=== PATIENT | female | born 1995 | race Hispanic/Latino ===

== ENCOUNTER 2019-04-21 11:05 | Emergency (ER) | payer BC ==
[2019-04-21 11:40] LABS: Absolute Lymphocytes (CBC) 0.9 K/uL (0.7-4.9); Hematocrit 37.9 % (36.0-45.0); Lymphocytes % 7.5 % (15.3-44.8); MPV 10.5 fL (7.6-11.3); RBC Red Blood Cell Count 4.08 M/uL (3.86-4.86)
[2019-04-21 11:49] LABS: Urine Blood NEGATIVE (NEG); Urine Glucose TRACE (NEG); Urine Protein NEGATIVE (NEG); Urine Specific Gravity 1.025 (1.005-1.030)
[2019-04-21 11:55] LABS: ALT/SGPT 37 U/L (12-78); AST/SGOT 22 U/L (15-37); Albumin 3.6 g/dL (3.4-5.0); Alkaline Phosphatase 88 U/L (45-117); BUN Blood Urea Nitrogen 14 mg/dL (7-18); Bicarbonate 24 mmol/L (21-32); Bilirubin Direct 0.1 mg/dL (0-0.2); Bilirubin Total 0.3 mg/dL (0.2-1.0); Glucose Level 144 mg/dL (74-106); Lipase 66 U/L (73-393); Potassium 3.5 mmol/L (3.5-5.1); Protein, Total 6.8 g/dL (6.4-8.2); Sodium Level 141 mmol/L (136-145)
[2019-04-21 12:07] LABS: Barbiturates NEGATIVE (NEGATIVE); Benzodiazepines NEGATIVE (NEGATIVE); Cocaine NEGATIVE (NEGATIVE); METHAMPHETAM NEGATIVE (NEGATIVE); Methadone NEGATIVE (NEGATIVE); Opiates NEGATIVE (NEGATIVE); Phencyclidine NEGATIVE (NEGATIVE); THC Cannibis NEGATIVE (NEGATIVE)
--- NOTE | 2019-04-21 12:09 | RAD REPORT ---
EXAM DESCRIPTION: CT - Head Brain Wo Cont - 04/21/2019 11:54 am CLINICAL HISTORY: Acute onset headache, no history of trauma indicated COMPARISON: None. TECHNIQUE: Axial 5 mm thick images of the head were obtained without IV contrast. All CT scans are performed using dose optimization technique as appropriate and may include automated exposure control or mA/KV adjustment according to patient size. FINDINGS: Ill-defined hyperdensity is present in the left sylvian fissure and extending towards the left side of the [place]. There is also some vague increased density along the posterior asp ect of the interhemispheric fissure anteriorly. Patient has enlargement of the temporal horns of each lateral ventricle for what is typically seen. Lateral and third ventricle size is within normal limi ts but the baseline for the patient is unknown. There is the appearance of an underlying mild diffuse edema. No midline shift. An acute infarction is not suspected. There is no intraventricular hemorrha ge. Mastoid air cells and visualized portions of the paranasal sinuses are clear. No acute bony findings. Findings were discussed by telephone with the referring physician 12:06 p.m. IMPRESSION: Acute subarachnoid hemorrhage is present in the left sylvian fissure and left [place] region. There is questionable minimal subarachnoid hemorrhage in the anterior interhemispheric fissure. Patient has a mild cerebral edema pattern. Temporal horns of the lateral ventricles are enlarged. The re is no midline shift. Etiology for the subarachnoid hemorrhage is unclear. There is no trauma history. Aneurysm is certainl y a consideration. Hemorrhage related to hypertensive episode would be possible.
[2019-04-21] MEDS ORDERED: MORPHINE 2 MG/ML SYR ONE ×2 (12:10→13:42)
[2019-04-21] MEDS ORDERED: ONDANSETRON 4 MG/2 ML VIAL ONE ×2 (12:10→13:42)
[2019-04-21] MEDS ORDERED: NA CHLORIDE 0.9% 1,000 ML ONE (12:10)
--- NOTE | 2019-04-21 12:10 | ER ---
Nurse's Notes [facility] Name: Lilo Cowart Age: 23 yrs Sex: Female : 1995 Arrival Date: 04/21/2019 Time: 11:09 Bed 7 Private MD: Diagnosis: Nontraumatic subarachnoid hemorrhage from unspecified vertebral artery;Headache;Vomiting;Urinary tract infection, site not specified Presentation: 04/21 11:15 Presenting complaint: states: sudden onset of headache, N/V/D that began right ss after having intercourse this morning at 0830. is concerned because patient is weak now. Transition of care: patient was not received from another setting of care. Onset of symptoms was April 21, 2019. Risk Assessment: Do you want to hurt yourself or someone else? Patient reports no desire to harm self or others. Initial Sepsis Screen: Does the patient meet any 2 criteria? No. Patient's initial sepsis screen is negative. Does the patient have a suspected source of infection? No. Patient's initial sepsis screen is negative. 11:15 Method Of Arrival: Wheelchair ss 11:15 Acuity: GERSON 3 ss 11:15 Note Pt ceased taking control 3 weeks ago. Care prior to arrival: None. 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 - Social history:: Smoking status: Patient/guardian denies using tobacco. - Ebola Screening: : Patient denies exposure to infectious person Patient denies travel to an Ebola-affected area in the 21 days before illness onset. - Family history:: not pertinent. Screenin:25 Abuse screen: Denies threats or abuse. Nutritional screening: No deficits noted. aa5 Tuberculosis screening: No symptoms or risk factors identified. Fall Risk None identified. Assessment: 11:20 General: Appears uncomfortable, Behavior is calm, cooperative. Pain: Complains of pain aa5 in forehead Pain does not radiate. Pain currently is 9 out of 10 on a pain scale. Quality of pain is described as pressure, Is continuous. Neuro: Level of Consciousness is awake, alert, obeys commands, Oriented to person, place, time, situation, Director Of Accreditation are equal bilaterally Moves all extremities. Speech is normal, Facial symmetry appears normal, Pupils are PERRLA, Reports headache frontal area. Cardiovascular: Heart tones S1 S2 present Rhythm is regular. Respiratory: Airway is patent Respiratory effort is even, unlabored, Respiratory pattern is regular, symmetrical. GI: Abdomen is flat, non-distended, Bowel sounds present X 4 quads. Abd is soft and non tender X 4 quads. Reports diarrhea, nausea, vomiting, Patient currently denies abdominal pain. : Denies burning with urination, inability to void, urinary frequency, urgency. EENT: No signs and/or symptoms were reported regarding the EENT system. Derm: Skin is pink, warm \T\ dry. Musculoskeletal: Range of motion: intact in all extremities. 11:48 Reassessment: Pt taken to CT via stretcher . aa5 12:00 Reassessment: Patient is alert, oriented x 3, equal unlabored respirations, skin aa5 warm/dry/pink. Pt back from CT. 12:20 Reassessment: Patient is alert, oriented x 3, equal unlabored respirations, skin aa5 warm/dry/pink. Pt reports pain has decreased. Pt refused 2nd dose of morphine at this time. . Pain: Pain currently is 8 out of 10 on a pain scale. 12:45 Neuro: Level of Consciousness is awake, alert, obeys commands, Oriented to person, aa5 place, time, situation. Cardiovascular: Rhythm is sinus rhythm. Respiratory: Airway is patent Respiratory effort is even, unlabored, Respiratory pattern is regular, symmetrical. Derm: Skin is pink, warm \T\ dry. 12:45 Pain: Pain currently is 8 out of 10 on a pain scale. aa5 13:20 Reassessment: Patient is alert, oriented x 3, equal unlabored respirations, skin aa5 warm/dry/pink. 13:20 Pain: Pain currently is 8 out of 10 on a pain scale. aa5 Vital Signs: 11:18 BP 120 / 81; Pulse 74; Resp 14; Temp 98.1(TE); Pulse Ox 99% on R/A; Weight 58.97 kg; ss Height 5 ft. 3 in. (160.02 cm); Pain 8/10; 12:08 BP 112 / 75; Pulse 62; Resp 16 S; Pulse Ox 100% on R/A; aa5 12:25 BP 113 / 74; Pulse 78; Resp 16 S; Pulse Ox 100% on R/A; aa5 12:45 BP 113 / 77; Pulse 76; Resp 14 S; Temp 98.0(TE); Pulse Ox 100% on R/A; aa5 13:00 BP 110 / 64; Pulse 82; Resp 16 S; Pulse Ox 100% on R/A; aa5 13:15 BP 107 / 64; Pulse 77; Resp 16 S; Pulse Ox 100% on R/A; aa5 11:18 Body Mass Index 23.03 (58.97 kg, 160.02 cm) ss NIH Stroke Scale Scores: 12:26 NIHSS Score: 0 [facility] ED Course: 11:09 Patient arrived in ED. as 11:09 Jesse Sauer MD is Attending Physician. [facility] 11:14 Nasrin Poole RN is Primary Nurse. aa5 11:17 Triage completed. ss 11:18 Arm band placed on right wrist. ss 11:20 Patient has correct armband on for positive identification. Placed in gown. Bed in low aa5 position. Call light in reach. Side rails up X2. 11:26 Initial lab(s) drawn, by me, sent to lab. Inserted saline lock: 20 gauge in right aa5 antecubital area, using aseptic technique. Blood collected. 11:54 CT completed. Patient tolerated procedure well. Patient moved back from CT. mw3 11:57 CT Head Brain wo Cont In Process Unspecified. EDMS 13:20 No provider procedures requiring assistance completed. Patient transferred, IV remains aa5 in place. Administered Medications: 12:00 Drug: NS 0.9% 500 ml Route: IV; Rate: bolus; Site: right antecubital; aa5 12:30 Follow up: IV Status: Completed infusion; IV Intake: 500ml aa5 12:00 Drug: Zofran 4 mg Route: IVP; Site: right antecubital; aa5 12:08 Follow up: Response: No adverse reaction aa5 12:00 Drug: morphine 2 mg Route: IVP; Site: right antecubital; aa5 12:08 Follow up: Response: No adverse reaction aa5 12:00 Drug: Rocephin 1 grams Route: IV; Rate: per protocol; Site: right antecubital; aa5 12:08 Follow up: Response: No adverse reaction aa5 12:08 Drug: niMODipine 60 mg Route: PO; aa5 12:57 Follow up: Response: No adverse reaction aa5 12:20 Drug: Keppra 1000 mg Route: IV; Rate: per protocol; Site: right antecubital; aa5 12:35 Follow up: Response: No adverse reaction; IV Status: Completed infusion; IV Intake: aa5 100ml 12:30 Drug: NS 0.9% 1000 ml Route: IV; Rate: 125 ml/hr; Site: right antecubital; aa5 12:55 Not Given (Patient Refused): morphine 2 mg IVP once aa5 12:59 Not Given (Physician Discretion): niCARdipine (25mg/250mL) 5 mg/h IV at per protocol aa5 continuous 13:20 Drug: Zofran 4 mg Route: IVP; Site: right antecubital; aa5 13:22 Follow up: Response: Medication administered at discharge. aa5 13:20 Drug: morphine 2 mg Route: IVP; Site: right antecubital; aa5 13:22 Follow up: Response: Medication administered at discharge. aa5 Intake: 12:30 IV: 500ml; Total: 500ml. aa5 12:35 IV: 100ml; Total: 600ml. aa5 Outcome: 12:09 ER care complete, transfer ordered by . zenia 13:25 Transferred by ground EMS to [facility], Transfer form completed. aa5 X-rays sent w/ patient. Note: Report given to [facility] 13:25 Condition: stable 13:25 Discharge instructions given to patient, and pt's Instructed on the need for transfer, Demonstrated understanding of instructions. 13:29 Patient left the ED. aa5 NIH Stroke Scale - NIH Stroke Score Date: 04/21/2019 Time: 12:26 Total Score = 0 1a. Level of Consciousness (LOC) - 0(Alert) 1b. Level of Consciousness (LOC) (Year \T\ Age) - 0(Both) 1c. LOC Commands (Open \T\ Closes Eyes/Applied Psychology Professor) - 0(Both) 2. Best Gaze (Lateral Gaze Paresis) - 0(Normal) 3. Visual Field Loss - 0(No visual loss) 4. Facial Palsy - 0(Normal) 5a. Left Arm: Motor (10-second hold) - 0(No drift) 5b. Right Arm: Motor (10-second hold) - 0(No drift) 6a. Left Leg: Motor (5-second hold - always test supine) - 0(No drift) 6b. Right Leg: Motor (5-second hold - always test supine) - 0(No drift) 7. Limb Ataxia (finger/nose \T\ heel/[place] - test with eyes open) - 0(Absent) 8. Sensory Loss (pinprick arms/legs/face) - 0(Normal) 9. Best Language: Aphasia (description/naming/reading) - 0(No aphasia) 10. Dysarthria (speech clarity - read or repeat words) - 0(Normal) 11. Extinction and Inattention (visual/tactile/auditory/spatial/personal) - 0(No abnormality) Initials: zenia Signatures: Dispatcher [employer] EDMS Jamila Barahona RN RN aj1 Jesse Sauer MD MD cha Martinez, Amelia as Calderon, Audri, CARLYLE RN aa5 Glenna Márquez RN RN ss Racheal Witt RN RN rb1 Kavitha [place]is mw3 Corrections: (The following items were deleted from the chart) 11:13 11:07 Racheal Witt RN is Primary Nurse. rb1 aa5 11:14 11:14 Primary Nurse role handed off by Racheal Witt RN aa5 aa5 11:14 11:14 Nasrin Poloe, CARLYLE is Primary Nurse. aa5 aa5 14:00 14:00 Patient left the ED. aa5 aa5
--- NOTE | 2019-04-21 12:11 | EDPHYS ---
Physician Documentation [facility] Name: Lilo Cowart Age: 23 yrs Sex: Female : 1995 Arrival Date: 04/21/2019 Time: 11:09 Bed 7 Private MD: ED Physician Jesse Sauer HPI: 04/21 11:46 This 23 yrs old Female presents to ER via Wheelchair with complaints of zenia Vomiting, headache after sex. 11:46 The patient presents to the emergency department with nausea, vomiting, that is zenia continuous. Onset: The symptoms/episode began/occurred just prior to arrival, this morning. Possible causes: unknown. The symptoms are aggravated by nothing. The symptoms are alleviated by nothing. Associated signs and symptoms: The patient has no apparent associated signs or symptoms. The patient has not experienced similar symptoms in the past. 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 - Social history:: Smoking status: Patient/guardian denies using tobacco. - Ebola Screening: : Patient denies exposure to infectious person Patient denies travel to an Ebola-affected area in the 21 days before illness onset. - Family history:: not pertinent. ROS: 11:46 Constitutional: Negative for fever, chills, and weight loss, Eyes: Negative for injury, zenia pain, redness, and discharge, ENT: Negative for injury, pain, and discharge, Neck: Negative for injury, pain, and swelling, Cardiovascular: Negative for chest pain, palpitations, and edema, Respiratory: Negative for shortness of breath, cough, wheezing, and pleuritic chest pain, Back: Negative for injury and pain, : Negative for injury, bleeding, discharge, and swelling, MS/Extremity: Negative for injury and deformity, Skin: Negative for injury, rash, and discoloration, Psych: Negative for depression, anxiety, suicide ideation, homicidal ideation, and hallucinations, Allergy/Immunology: Negative for hives, rash, and allergies, Endocrine: Negative for neck swelling, polydipsia, polyuria, polyphagia, and marked weight changes, Hematologic/Lymphatic: Negative for swollen nodes, abnormal bleeding, and unusual bruising. 11:46 Abdomen/GI: Positive for nausea and vomiting. 11:46 Neuro: Positive for headache. Exam: 11:46 Constitutional: This is a well developed, well nourished patient who is awake, alert, zenia and in no acute distress. Head/Face: Normocephalic, atraumatic. Eyes: Pupils equal round and reactive to light, extra-ocular motions intact. Lids and lashes normal. Conjunctiva and sclera are non-icteric and not injected. Cornea within normal limits. Periorbital areas with no swelling, redness, or edema. ENT: Nares patent. No nasal discharge, no septal abnormalities noted. Tympanic membranes are normal and external auditory canals are clear. Oropharynx with no redness, swelling, or masses, exudates, or evidence of obstruction, uvula midline. Mucous membranes moist. Neck: Trachea midline, no thyromegaly or masses palpated, and no cervical lymphadenopathy. Supple, full range of motion without nuchal rigidity, or vertebral point tenderness. No Meningismus. Chest/axilla: Normal chest wall appearance and motion. Nontender with no deformity. No lesions are appreciated. Cardiovascular: Regular rate and rhythm with a normal S1 and S2. No gallops, murmurs, or rubs. Normal PMI, no JVD. No pulse deficits. Respiratory: Lungs have equal breath sounds bilaterally, clear to auscultation and percussion. No rales, rhonchi or wheezes noted. No increased work of breathing, no retractions or nasal flaring. Abdomen/GI: Soft, non-tender, with normal bowel sounds. No distension or tympany. No guarding or rebound. No evidence of tenderness throughout. Back: No spinal tenderness. No costovertebral tenderness. Full range of motion. Skin: Warm, dry with normal turgor. Normal color with no rashes, no lesions, and no evidence of cellulitis. MS/ Extremity: Pulses equal, no cyanosis. Neurovascular intact. Full, normal range of motion. Neuro: Awake and alert, GCS 15, oriented to person, place, time, and situation. Cranial nerves II-XII grossly intact. Motor strength 5/5 in all extremities. Sensory grossly intact. Cerebellar exam normal. Normal gait. Psych: Awake, alert, with orientation to person, place and time. Behavior, mood, and affect are within normal limits. Vital Signs: 11:18 BP 120 / 81; Pulse 74; Resp 14; Temp 98.1(TE); Pulse Ox 99% on R/A; Weight 58.97 kg; ss Height 5 ft. 3 in. (160.02 cm); Pain 8/10; 12:08 BP 112 / 75; Pulse 62; Resp 16 S; Pulse Ox 100% on R/A; aa5 12:25 BP 113 / 74; Pulse 78; Resp 16 S; Pulse Ox 100% on R/A; aa5 12:45 BP 113 / 77; Pulse 76; Resp 14 S; Temp 98.0(TE); Pulse Ox 100% on R/A; aa5 13:00 BP 110 / 64; Pulse 82; Resp 16 S; Pulse Ox 100% on R/A; aa5 13:15 BP 107 / 64; Pulse 77; Resp 16 S; Pulse Ox 100% on R/A; aa5 11:18 Body Mass Index 23.03 (58.97 kg, 160.02 cm) NIH Stroke Scale Scores: 12:26 NIHSS Score: 0 zenia MDM: 11:10 Patient medically screened. [facility] 11:48 Data reviewed: vital signs, nurses notes, lab test result(s), EKG, radiologic studies, [facility] CT scan, plain films. 04/21 11:26 Order name: Basic Metabolic Panel; Complete Time: 11:57 04/21 11:26 Order name: CBC with Diff [facility] 04/21 11:26 Order name: Hepatic Function; Complete Time: 11:57 [facility] 04/21 11:26 Order name: Lipase; Complete Time: 11:57 [facility] 04/21 11:26 Order name: Test, Serum; Complete Time: 12:12 [facility] 04/21 11:38 Order name: CT Head Brain wo Cont; Complete Time: 12:12 [facility] 04/21 11:39 Order name: Urine Culture 04/21 11:41 Order name: Urine Dipstick--Ancillary (enter results); Complete Time: 11:55 bd 04/21 11:41 Order name: Urine --Ancillary (enter results); Complete Time: 11:55 bd 04/21 11:45 Order name: Manual Differential EDMS 04/21 11:49 Order name: UDS; Complete Time: 12:12 [facility] 04/21 11:26 Order name: IV Saline Lock; Complete Time: 11:04/21 11:26 Order name: Labs collected and sent; Complete Time: 11:04/21 11:26 Order name: Urine Dipstick-Ancillary (obtain specimen); Complete Time: 11:35 04/21 11:26 Order name: Urine Test (obtain specimen); Complete Time: 11:35 04/21 11:46 Order name: NPO; Complete Time: 11:50 [facility] 04/21 11:46 Order name: Seizure Precautions; Complete Time: 11:50 [facility] 04/21 11:49 Order name: EKG; Complete Time: 11:52 [facility] 04/21 11:49 Order name: EKG - Nurse/Tech; Complete Time: 12:19 [facility] Administered Medications: 12:00 Drug: NS 0.9% 500 ml Route: IV; Rate: bolus; Site: right antecubital; aa5 12:30 Follow up: IV Status: Completed infusion; IV Intake: 500ml aa5 12:00 Drug: Zofran 4 mg Route: IVP; Site: right antecubital; aa5 12:08 Follow up: Response: No adverse reaction aa5 12:00 Drug: morphine 2 mg Route: IVP; Site: right antecubital; aa5 12:08 Follow up: Response: No adverse reaction aa5 12:00 Drug: Rocephin 1 grams Route: IV; Rate: per protocol; Site: right antecubital; aa5 12:08 Follow up: Response: No adverse reaction aa5 12:08 Drug: niMODipine 60 mg Route: PO; aa5 12:57 Follow up: Response: No adverse reaction aa5 12:20 Drug: Keppra 1000 mg Route: IV; Rate: per protocol; Site: right antecubital; aa5 12:35 Follow up: Response: No adverse reaction; IV Status: Completed infusion; IV Intake: aa5 100ml 12:30 Drug: NS 0.9% 1000 ml Route: IV; Rate: 125 ml/hr; Site: right antecubital; aa5 12:55 Not Given (Patient Refused): morphine 2 mg IVP once aa5 12:59 Not Given (Physician Discretion): niCARdipine (25mg/250mL) 5 mg/h IV at per protocol aa5 continuous 13:20 Drug: Zofran 4 mg Route: IVP; Site: right antecubital; aa5 13:22 Follow up: Response: Medication administered at discharge. aa5 13:20 Drug: morphine 2 mg Route: IVP; Site: right antecubital; aa5 13:22 Follow up: Response: Medication administered at discharge. aa5 Disposition: 04/21/19 12:09 Transfer ordered to [facility]. Diagnosis are Nontraumatic subarachnoid hemorrhage from unspecified vertebral artery, Headache, Vomiting, Urinary tract infection, site not specified. - Reason for transfer: Higher level of care. - Accepting physician is to [facility]. - Condition is Serious. - Problem is new. - Symptoms have improved. NIH Stroke Scale - NIH Stroke Score Date: 04/21/2019 Time: 12:26 Total Score = 0 1a. Level of Consciousness (LOC) - 0(Alert) 1b. Level of Consciousness (LOC) (Year \T\ Age) - 0(Both) 1c. LOC Commands (Open \T\ Closes Eyes/Wrapper Stemmer Operator) - 0(Both) 2. Best Gaze (Lateral Gaze Paresis) - 0(Normal) 3. Visual Field Loss - 0(No visual loss) 4. Facial Palsy - 0(Normal) 5a. Left Arm: Motor (10-second hold) - 0(No drift) 5b. Right Arm: Motor (10-second hold) - 0(No drift) 6a. Left Leg: Motor (5-second hold - always test supine) - 0(No drift) 6b. Right Leg: Motor (5-second hold - always test supine) - 0(No drift) 7. Limb Ataxia (finger/nose \T\ heel/[place] - test with eyes open) - 0(Absent) 8. Sensory Loss (pinprick arms/legs/face) - 0(Normal) 9. Best Language: Aphasia (description/naming/reading) - 0(No aphasia) 10. Dysarthria (speech clarity - read or repeat words) - 0(Normal) 11. Extinction and Inattention (visual/tactile/auditory/spatial/personal) - 0(No abnormality) Initials: zenia Signatures: Dispatcher [employer] EDeJsse Messina MD MD cha Mickail, Joel, PA PA jmm Poole, Nasrin, RN RN aa5 Glenna Márquez, RN RN ss Corrections: (The following items were deleted from the chart) 12:11 11:28 Creatinine for Radiology+C.LAB.BRZ ordered. EDHI EDMS 13:29 12:09 04/21/2019 12:09 Transfer ordered to [facility]. aa5 Diagnosis is Nontraumatic subarachnoid hemorrhage from unspecified vertebral artery; Headache; Vomiting; Urinary tract infection, site not specified. Reason for transfer: Higher level of care. Accepting physician [facility]. Condition is Serious. Problem is new. Symptoms have improved. [facility] 14:00 13:29 04/21/2019 12:09 Transfer ordered to [facility]. aa5 Diagnosis is Nontraumatic subarachnoid hemorrhage from unspecified vertebral artery; Headache; Vomiting; Urinary tract infection, site not specified. Reason for transfer: Higher level of care. Accepting physician is to [facility]. Condition is Serious. Problem is new. Symptoms have improved. aa5
[2019-04-21] MEDS ORDERED: levETIRAcetam 1,000 MG in NA CHLORIDE 0.9% 100 ML IV ONE (12:15)
[2019-04-21] MEDS ORDERED: CEFTRIAXONE/SWI 1gm 1 GM/10 ML SYR ONE (12:15)
[2019-04-21 12:28] LABS: Blood Morphology Comment NOT SEEN (NOT SEEN); Platelet Estimate ADEQ
[2019-04-21] MEDS ORDERED: niMODipine 30 MG CAP PO ONE (12:32)
--- NOTE | 2019-04-22 07:41 | EKG ---
Test Date: 2019-04-21 Test Time: 12:04:32 Etiquette Teacher: ORESTES MEASUREMENT RESULTS: Intervals: Rate: 74 NC: 154 QRSD: 94 QT: 424 QTc: 470 [place]: P: 65 NC: 154 QRS: 61 T: 24 INTERPRETIVE STATEMENTS: Normal sinus rhythm Prolonged QT Abnormal ECG No previous ECG available for comparison Electronically Signed On 04-22-19 07:41:00 CDT by Darrin Doss
== END 2019-04-21 14:00 | disposition short-term general hospital (02) ==
LOC: ER 11:05
DX: I60.5 Nontraumatic subarachnoid hemorrhage from vertebral artery (principal); N39.0 Urinary tract infection, site not specified; R11.10 Vomiting, unspecified
CPT/HCPCS: 36415; 70450; 80048; 80076; 80307; 81003; 81025; 83690; 84703; 85025; 87077; 87086; 87088; 87186; 93005; 96374; 96375; 99285; J0696; J1953; J2270; J2405; J7030

== ENCOUNTER 2021-05-13 06:07 | Emergency (ER) | payer BC, OTHER ==
[2021-05-13 07:30] LABS: Urine Blood 3+ (Negative); Urine Glucose Negative (Negative); Urine Protein Negative (Negative); Urine Specific Gravity 1.015 (1.005-1.030); Urine pH 6.5 (5.0-7.0)
[2021-05-13 08:09] LABS: Absolute Lymphocytes (CBC) 1.2 K/uL (0.7-4.9); Basophils % 0.2 % (0-1.3); Hematocrit 38.4 % (36.0-45.0); Lymphocytes % 13.4 % (15.3-44.8); MPV 9.4 fL (7.6-11.3); RBC Red Blood Cell Count 4.11 M/uL (3.86-4.86)
[2021-05-13 08:28] LABS: BUN Blood Urea Nitrogen 14 mg/dL (7-18); Bicarbonate 28 mmol/L (21-32); Glucose Level 96 mg/dL (74-106); HCG, Quantitative 27 mIU/mL (1-3); Potassium 4.1 mmol/L (3.5-5.1); Sodium Level 142 mmol/L (136-145)
--- NOTE | 2021-05-13 10:50 | RAD REPORT ---
EXAM DESCRIPTION: US - Transvaginal OB - 05/13/2021 9:17 am CLINICAL HISTORY: with vaginal bleeding COMPARISON: None. FINDINGS: The uterus measures 5 x 4 x 4 centimeters. Asymmetric thickening of the endometrial strip e within the uterine body is presence. It measures 1.5 centimeters. A gestational sac is not seen. . Ovaries are normal in size and echotexture.. The right and left adnexa unremarkable Small amount of free fluid IMPRESSION: Asymmetric thickening endometrial stripe within the uterine body may indicate an incompl ete . Other possibilities include an early intrauterine in which the gestational sac is not seen and ectopic can also result in this appearance. This all should be correlated clinically a nd with serial beta HCG levels. Followup endovaginal sonogram in 1 week recommended
--- NOTE | 2021-05-13 11:24 | ER ---
Nurse's Notes [facility] Name: Lilo Iniguez Age: 25 yrs Sex: Female : 1995 Arrival Date: 05/13/2021 Time: 06:10 Bed 15 Private MD: Diagnosis: Threatened Presentation: 05/13 06:42 Chief complaint: Patient states: 7 weeks , reports vaginal bleeding that em started yesterday, reports high flow has gone through several tampons, denies N/V or fever, also reports pelvic cramping. Coronavirus screen: Client denies travel out of the [place] in the last 14 days. Ebola Screen: Patient negative for fever greater than or equal to 101.5 degrees Fahrenheit, and additional compatible Ebola Virus Disease symptoms Patient denies exposure to infectious person. Patient denies travel to an Ebola-affected area in the 21 days before illness onset. No symptoms or risks identified at this time. Initial Sepsis Screen: Does the patient meet any 2 criteria? No. Patient's initial sepsis screen is negative. Does the patient have a suspected source of infection? No. Patient's initial sepsis screen is negative. Risk Assessment: Do you want to hurt yourself or someone else? Patient reports no desire to harm self or others. Onset of symptoms was May 13, 2021. 06:42 Method Of Arrival: Ambulatory em 06:42 Acuity: GERSON 3 em Triage Assessment: 08:22 General: Appears in no apparent distress. comfortable, slender, well groomed, Behavior tr6 is calm, cooperative, appropriate for age. Pain: Complains of pain in cramping in lower abdomen. EENT: No deficits noted. Neuro: No deficits noted. Cardiovascular: No deficits noted. Respiratory: No deficits noted. GI: No deficits noted. : No deficits noted. Reports vaginal bleeding that is. Derm: No deficits noted. Musculoskeletal: No deficits noted. 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 - Social history:: Smoking status: Patient denies any tobacco usage or history of. Screenin:21 Abuse screen: Denies threats or abuse. Denies injuries from another. Nutritional tr6 screening: No deficits noted. Tuberculosis screening: No symptoms or risk factors identified. Fall Risk None identified. Assessment: 09:20 Reassessment: see triage assessment. tr6 09:21 Reassessment: pt returned from [place]. tr6 11:25 Reassessment: No changes from previously documented assessment. [place] informed pt on tr6 POC and results. Vital Signs: 06:42 BP 125 / 93; Pulse 74; Resp 16; Temp 97.6; Pulse Ox 100% on R/A; Weight 67.13 kg; em Height 5 ft. 3 in. (160.02 cm); Pain 7/10; 08:20 BP 113 / 88; Pulse 77; Resp 18; Pulse Ox 100% on R/A; tr6 06:42 Body Mass Index 26.22 (67.13 kg, 160.02 cm) em ED Course: 06:10 Patient arrived in ED. 06:44 Triage completed. em 06:44 Arm band placed on. em 06:48 Kosta Peter PA is PHCP. [facility] 06:48 Fab Lerner MD is Attending Physician. jmm 07:11 Charlene Acevedo, CARLYLE is Primary Nurse. tr6 08:21 No apparent distress. Resting quietly. Awaiting lab results. tr6 08:21 Patient has correct armband on for positive identification. Fall risk band placed. tr6 Placed in gown. Bed in low position. Call light in reach. Side rails up X 1. Pulse ox on. NIBP on. Door closed. Noise minimized. Visitors limited. Lights dimmed. Moved to private room. Warm blanket given. Diet: Patient is NPO. 08:21 No provider procedures requiring assistance completed. Inserted saline lock: 18 gauge tr6 in right antecubital area, using aseptic technique. Blood collected. Patient maintains SpO2 saturation greater than 95% on room air. 08:35 Patient taken to ultrasound. via wheelchair. tr6 09:10 Transvaginal OB In Process Unspecified. EDMS 11:40 IV discontinued, intact, bleeding controlled, No redness/swelling at site. Pressure tr6 dressing applied. Administered Medications: No medications were administered Outcome: 11:23 Discharge ordered by . jmm 11:25 Discharged to home ambulatory, pt refused wheelchair at this time tr6 11:25 Condition: good 11:25 Discharge instructions given to patient, Instructed on discharge instructions, follow up and referral plans. safety practices, Demonstrated understanding of instructions, follow-up care, medications. 11:48 Patient left the ED. tr6 Signatures: Dispatcher [employer] EDKosta Mark PA PA m Matthew Tirado RN RN em Ramnanan, Tiffany, RN RN tr6 Monet Hernandez Corrections: (The following items were deleted from the chart) :45 06:44 Allergies: Aspirin; em em 06:45 06:44 PMHx: None; em em
--- NOTE | 2021-05-13 11:24 | EDPHYS ---
Physician Documentation [facility] Name: Lilo Iniguez Age: 25 yrs Sex: Female : 1995 Arrival Date: 05/13/2021 Time: 06:10 Bed 15 Private MD: ED Physician Fab Lerner HPI: 05/13 07:06 This 25 yrs old Female presents to ER via Ambulatory with complaints of jmm Vaginal Bleeding, + Preg <12wks. 07:06 The patient presents to the emergency department with vaginal bleeding, that is jmm moderate. The estimated gestational age is 7 weeks. Associated signs and symptoms: Pertinent negatives: abdominal pain, fever, vomiting. The patient has not experienced similar symptoms in the past. 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 - Social history:: Smoking status: Patient denies any tobacco usage or history of. ROS: 07:06 Constitutional: Negative for fever, chills, and weight loss, Cardiovascular: Negative jmm for chest pain, palpitations, and edema, Respiratory: Negative for shortness of breath, cough, wheezing, and pleuritic chest pain, Abdomen/GI: Negative for abdominal pain, nausea, vomiting, diarrhea, and constipation. 07:06 : Positive for vaginal bleeding. 07:06 All other systems are negative. Exam: 07:06 Constitutional: This is a well developed, well nourished patient who is awake, alert, jmm and in no acute distress. Head/Face: atraumatic. Eyes: EOMI, no conjunctival erythema appreciated ENT: Moist Mucus Membranes Neck: Trachea midline, Supple Chest/axilla: Normal chest wall appearance and motion. Cardiovascular: Regular rate and rhythm. No edema appreciated Respiratory: Normal respirations, no respiratory distress appreciated Abdomen/GI: Non distended, soft Back: Normal ROM Skin: General appearance color normal MS/ Extremity: Moves all extremities, no obvious deformities appreciated, no edema noted to the lower extremities Neuro: Awake and alert, normal gait Psych: Behavior is normal, Mood is normal, Patient is cooperative and pleasant Vital Signs: 06:42 BP 125 / 93; Pulse 74; Resp 16; Temp 97.6; Pulse Ox 100% on R/A; Weight 67.13 kg; em Height 5 ft. 3 in. (160.02 cm); Pain 7/10; 08:20 BP 113 / 88; Pulse 77; Resp 18; Pulse Ox 100% on R/A; tr6 06:42 Body Mass Index 26.22 (67.13 kg, 160.02 cm) em MDM: 06:58 [facility] medically screened. [facility] 11:22 Data reviewed: vital signs, nurses notes. Counseling: I had a detailed discussion with [facility] the patient and/or guardian regarding: the historical points, exam findings, and any diagnostic results supporting the discharge/admit diagnosis, lab results, radiology results, the need for outpatient follow up, to return to the emergency department if symptoms worsen or persist or if there are any questions or concerns that arise at home. 05/13 06:59 Order name: Abo/rh Typing; Complete Time: 09:16 [facility] 05/13 06:59 Order name: Basic Metabolic Panel; Complete Time: 08:28 [facility] 05/13 06:59 Order name: CBC with Diff; Complete Time: 08:12 [facility] 05/13 06:59 Order name: Quantitative Hcg; Complete Time: 08:28 [facility] 05/13 07:30 Order name: Urine Dipstick-Ancillary; Complete Time: 07:31 EDMS 05/13 06:59 Order name: IV Saline Lock; Complete Time: 08:19 [facility] 05/13 06:59 Order name: Labs collected and sent; Complete Time: 08:19 [facility] 05/13 06:59 Order name: NPO; Complete Time: 08:19 [facility] 05/13 06:59 Order name: Urine Dipstick-Ancillary (obtain specimen); Complete Time: 08:19 [facility] 05/13 09:10 Order name: Transvaginal OB; Complete Time: 10:53 EDMS Administered Medications: No medications were administered Disposition: 14:36 Co-signature as Attending Physician, Fab Lerner MD I agree with the assessment and rn plan of care. Attestation: The patient's history, exam findings, diagnostics, and a summary of any interventions or procedures was reviewed in detail with Kosta LEE. Disposition Summary: 05/13/21 11:23 Discharge [facility]dered [facility] Condition: Stable jmm Diagnosis - Threatened [facility] Followup: jmm - With: Private Physician - When: 2 - 3 days - Reason: Recheck today's complaints, Continuance of care, Staple/Suture removal, Re-evaluation by your physician Discharge Instructions: - Discharge Summary Sheet jmm - Threatened Miscarriage [facility] Forms: - Medication Reconciliation Form [facility] - Thank You Letter [facility] - Antibiotic Education [facility] - Work release form [facility] - Prescription Opioid Use [facility] Signatures: Dispatcher [employer] EDKosta Mark PA PA jmm Munoz, Edgar, RN RN em Fab Lerner MD MD ornament stitcher: (The following items were deleted from the chart) 06:45 06:44 Allergies: Aspirin; em em 0645 06:44 PMHx: None; em 09:10 08:18 1st Trimest Single 1st Fetus+US.RAD.BRZ ordered. [facility] 14:37 14:36 Co-signature as Attending Physician, Kosta LEE rn rn
[2021-05-13 11:53] VITALS: TEMP 97.6; O2SAT 100
[2021-05-13 11:55] VITALS: BP 113/88
== END 2021-05-13 11:48 | disposition home or self-care (01) ==
LOC: ER 06:07
DX: O20.0 Threatened abortion (principal); Z3A.01 Less than 8 weeks gestation of pregnancy
CPT/HCPCS: 36415; 76817; 80048; 81003; 84702; 85025; 86900; 86901; 99285

== ENCOUNTER 2023-06-13 21:24 | Emergency (ER) | payer OTHER ==
[2023-06-13 22:06] LABS: Absolute Lymphocytes (CBC) 2.1 K/uL (0.7-4.9); Hematocrit 34.3 % (36.0-45.0); Lymphocytes % 22.5 % (15.3-44.8); MCV 90.7 fL (80-100); MPV 9.1 fL (7.6-11.3); Platelets 273 thou/uL (152-406); RBC Red Blood Cell Count 3.78 M/uL (3.86-4.86)
[2023-06-13] MEDS ORDERED: NA CHLORIDE 0.9% 500 ML ONE (22:07)
[2023-06-13 22:28] LABS: Albumin 3.6 g/dL (3.4-5.0); Bilirubin Total 0.2 mg/dL (0.2-1.0); Potassium 3.5 mEq/L (3.5-5.1); Protein, Total 7.3 g/dL (6.4-8.2)
[2023-06-13] MEDS ORDERED: DIPHENHYDRAMINE 50 MG/ML VIAL ONE (22:46)
[2023-06-13] MEDS ORDERED: METHYLPREDNISOLONE 125 MG INJ ONE (22:46)
[2023-06-13] MEDS ORDERED: FAMOTIDINE 20 MG/2 ML VIAL IV ONE (22:47)
[2023-06-13] MEDS ORDERED: predniSONE 20 MG TAB ONE (22:47)
--- NOTE | 2023-06-13 23:41 | ER ---
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 i also am allergic to chocolate and ate a snickers bar tonight so im not sure what's causing the swelling. denies pain. Coronavirus screen: Client denies travel out of the [place] in the last 14 days. At this time, the client does not indicate any symptoms associated with coronavirus-19. Ebola Screen: No symptoms or risks identified at this time. Initial Sepsis Screen: Does the patient meet any 2 criteria? No. Patient's initial sepsis screen is negative. Does the patient have a suspected source of infection? No. Patient's initial sepsis screen is negative. Risk Assessment: Do you want to hurt yourself or someone else? Patient reports no desire to harm self or others. Onset of symptoms was June 13, 2023. 21:35 Method Of Arrival: Ambulatory lg3 21:35 Acuity: GERSON 3 lg3 Triage Assessment: 21:39 General: Appears in no apparent distress. comfortable, Behavior is calm, cooperative. lg3 Pain: Denies pain. EENT: No deficits noted. No signs and/or symptoms were reported regarding the EENT system. Neuro: No deficits noted. Blair Agitation-Sedation Scale (RASS): 0 - Alert and Calm Level of Consciousness is awake, alert, obeys commands, Oriented to person, place, time, situation. Cardiovascular: No deficits noted. Denies chest pain, shortness of breath. Respiratory: No deficits noted. Airway is patent Respiratory effort is even, unlabored, Respiratory pattern is regular, symmetrical. GI: No deficits noted. No signs and/or symptoms were reported involving the gastrointestinal system. : No deficits noted. No signs and/or symptoms were reported regarding the genitourinary system. Derm: No deficits noted. No signs and/or symptoms reported regarding the dermatologic system. Skin is intact, is healthy with good turgor, Skin is dry, Skin is normal, Skin temperature is warm. Musculoskeletal: Swelling present in left episcopalian. 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 - Social history:: Smoking status: Patient denies any tobacco usage or history of. Patient uses alcohol, occasionally. - Family history:: not pertinent. Screenin:04 [facility] ED Fall Risk Assessment (Adult) History of falling in the last 3 months, rv including since admission No falls in past 3 months (0 pts) Score/Fall Risk Level 0 - 2 = Low Risk Oriented to surroundings, Maintained a safe environment, Educated pt \\T\\ family on fall prevention, incl call for assistance when getting out of bed, Assessed \\T\\ reinforced patient's understanding of fall precautions, Provided non-skid footwear, Hourly rounding (assess needs \\T\\ fall precautionary measures) done. Abuse screen: Denies threats or abuse. Denies injuries from another. Nutritional screening: No deficits noted. Tuberculosis screening: No symptoms or risk factors identified. Assessment: 22:03 Reassessment: swelling on the left temporal noted. denies pain. General: Appears rv comfortable, Behavior is calm, cooperative. Pain: Denies pain. Neuro: Level of Consciousness is awake, alert, obeys commands, Oriented to person, place, time, situation. Cardiovascular: Capillary refill < 3 seconds Patient's skin is warm and dry. Respiratory: Airway is patent Respiratory effort is even, unlabored. Derm: Skin is intact. 23:16 Reassessment: Patient appears in no apparent distress at this time. Patient is alert, bp oriented x 3, equal unlabored respirations, skin warm/dry/pink. Vital Signs: 21:35 BP 116 / 86; Pulse 80; Resp 17 S; Temp 98.3(O); Pulse Ox 99% on R/A; Weight 68.04 kg lg3 (R); Height 5 ft. 3 in. (R); Pain 0/10; 22:07 BP 113 / 79; Pulse 87; Resp 17; Pulse Ox 100% ; rv 23:15 BP 101 / 68; Pulse 85; Resp 16; Pulse Ox 100% ; bp 21:35 Body Mass Index 26.57 (68.04 kg, 160.02 cm) lg3 21:35 Pain Scale: Adult lg3 Abiodun Coma Score: 22:07 Eye Response: spontaneous(4). Motor Response: obeys commands(6). Verbal Response: rv oriented(5). Total: 15. 22:26 Eye Response: spontaneous(4). Motor Response: obeys commands(6). Verbal Response: zenia oriented(5). Total: 15. 23:50 Eye Response: spontaneous(4). Motor Response: obeys commands(6). Verbal Response: rv oriented(5). Total: 15. ED Course: 21:27 Patient arrived in ED. jj6 21:32 Jesse Sauer MD is Attending Physician. zenia 21:38 Triage completed. lg3 21:39 Arm band placed on right wrist. lg3 21:48 Andrew Odell, RN is Primary Nurse. bp 22:04 Patient has correct armband on for positive identification. Provided Education on: FALL rv RISK. Client placed on continuous cardiac and pulse oximetry monitoring. NIBP monitoring applied. 22:04 No provider procedures requiring assistance completed. Inserted saline lock: 20 gauge rv in right antecubital area, using aseptic technique. Blood collected. 22:36 CT Head Brain wo Cont In Process Unspecified. EDMS 23:40 Cesar Echevarria MD is Referral Physician. zenia 23:51 IV discontinued, intact, bleeding controlled, No redness/swelling at site. Pressure rv dressing applied. Administered Medications: 22:06 Drug: NS 0.9% IV 500 ml IV at bolus once Route: IV; Rate: bolus; Site: right rv antecubital; 23:51 Follow up: IV Status: Completed infusion; IV Intake: 500ml rv 23:15 Drug: diphenhydrAMINE IVP 25 mg IVP once Route: IVP; Site: right antecubital; rv 23:50 Follow up: Response: No adverse reaction rv 23:15 Drug: Famotidine IVP 20 mg IVP once; dilute with 10 mL 0.9% NaCl; give over 2 minutes rv Route: IVP; Site: right antecubital; 23:50 Follow up: Response: No adverse reaction rv 23:15 Drug: predniSONE PO 40 mg PO once Route: PO; rv 23:50 Follow up: Response: No adverse reaction rv 23:15 Drug: MethylPrednisoLONE IVP 125 mg IVP once Route: IVP; Site: right antecubital; rv 23:50 Follow up: Response: No adverse reaction rv Medication: 22:04 VIS not applicable for this client. rv Intake: 23:51 IV: 500ml; Total: 500ml. rv Outcome: 23:40 Discharge ordered by . zenia 23:51 Discharged to home ambulatory, rv 23:51 Condition: improved 23:51 Discharge instructions given to patient, Instructed on discharge instructions, follow up and referral plans. medication usage, Demonstrated understanding of instructions, follow-up care, medications, Prescriptions given X 4, 23:51 Patient left the ED. rv Signatures: Dispatcher [employer] EDMS Jesse Sauer MD MD cha Peltier, Brian, RN RN Fransisco Wan RN RN rv Opal Vann, CARLYLE RN lg3 Heather Felix jj6 Corrections: (The following items were deleted from the chart) 21:40 21:38 Allergies: No Known Allergies; lg3 lg3 21:40 21:39 PMHx: "aneurysm repair"; lg3 lg3 21:42 21:35 Chief complaint: Patient states: i had a brain aneurysm in january with surgery and lg3 about an hour ago i started swelling in my left temporal area. denies pain lg3
--- NOTE | 2023-06-13 23:41 | EDPHYS ---
Physician Documentation [facility] Name: Lilo Iniguez Age: 27 yrs Sex: Female : 1995 Arrival Date: 06/13/2023 Time: 21:24 Bed 4 Private MD: [facility] Physician Jesse Sauer HPI: 06/13 22:20 This 27 yrs old Female presents to ER via Ambulatory with complaints of zenia Swelling-temporal lobe. Patient states she had brain surgery on the area in January 2023. 22:20 The patient presents with runny nose. Onset: The symptoms/episode began/occurred just zenia prior to arrival. Associated signs and symptoms: The patient has no apparent associated signs or symptoms. Possible causes: CHOCOLATE. The patient complains of pain to the left amish. The patient describes the headache as a pressure. Onset: The symptoms/episode began/occurred today. Severity of symptoms: At their worst the symptoms were mild in the emergency department the symptoms are unchanged. Severity of symptoms: At its worst the pain was mild, in the emergency department the pain has improved, mildly. 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 - Social history:: Smoking status: Patient denies any tobacco usage or history of. Patient uses alcohol, occasionally. - Family history:: not pertinent. ROS: 22:20 Constitutional: Negative for fever, chills, and weight loss, Eyes: Negative for injury, zenia pain, redness, and discharge, ENT: Negative for injury, pain, and discharge, Neck: Negative for injury, pain, and swelling, Cardiovascular: Negative for chest pain, palpitations, and edema, Respiratory: Negative for shortness of breath, cough, wheezing, and pleuritic chest pain, Abdomen/GI: Negative for abdominal pain, nausea, vomiting, diarrhea, and constipation, Back: Negative for injury and pain, : Negative for injury, bleeding, discharge, and swelling, MS/Extremity: Negative for injury and deformity, Skin: Negative for injury, rash, and discoloration, Psych: Negative for depression, anxiety, suicide ideation, homicidal ideation, and hallucinations, Allergy/Immunology: Negative for hives, rash, and allergies, Endocrine: Negative for neck swelling, polydipsia, polyuria, polyphagia, and marked weight changes, Hematologic/Lymphatic: Negative for swollen nodes, abnormal bleeding, and unusual bruising, 22:20 Neuro: Positive for headache, Exam: 22:20 Constitutional: This is a well developed, well nourished patient who is awake, alert, zenia and in no acute distress. Eyes: Pupils equal round and reactive to light, extra-ocular motions intact. Lids and lashes normal. Conjunctiva and sclera are non-icteric and not injected. Cornea within normal limits. Periorbital areas with no swelling, redness, or edema. ENT: Nares patent. No nasal discharge, no septal abnormalities noted. Tympanic membranes are normal and external auditory canals are clear. Oropharynx with no redness, swelling, or masses, exudates, or evidence of obstruction, uvula midline. Mucous membranes moist. Neck: Trachea midline, no thyromegaly or masses palpated, and no cervical lymphadenopathy. Supple, full range of motion without nuchal rigidity, or vertebral point tenderness. No Meningismus. Chest/axilla: Normal chest wall appearance and motion. Nontender with no deformity. No lesions are appreciated. Cardiovascular: Regular rate and rhythm with a normal S1 and S2. No gallops, murmurs, or rubs. Normal PMI, no JVD. No pulse deficits. Respiratory: Lungs have equal breath sounds bilaterally, clear to auscultation and percussion. No rales, rhonchi or wheezes noted. No increased work of breathing, no retractions or nasal flaring. Abdomen/GI: Soft, non-tender, with normal bowel sounds. No distension or tympany. No guarding or rebound. No evidence of tenderness throughout. Back: No spinal tenderness. No costovertebral tenderness. Full range of motion. Female : Normal external genitalia. Skin: Warm, dry with normal turgor. Normal color with no rashes, no lesions, and no evidence of cellulitis. MS/ Extremity: Pulses equal, no cyanosis. Neurovascular intact. Full, normal range of motion. Neuro: Awake and alert, GCS 15, oriented to person, place, time, and situation. Cranial nerves II-XII grossly intact. Motor strength 5/5 in all extremities. Sensory grossly intact. Cerebellar exam normal. Normal gait. Psych: Awake, alert, with orientation to person, place and time. Behavior, mood, and affect are within normal limits. 22:20 Head/face: Noted is swelling, tenderness, that is mild, of the left amish, Vital Signs: 21:35 BP 116 / 86; Pulse 80; Resp 17 S; Temp 98.3(O); Pulse Ox 99% on R/A; Weight 68.04 kg lg3 (R); Height 5 ft. 3 in. (R); Pain 0/10; 22:07 BP 113 / 79; Pulse 87; Resp 17; Pulse Ox 100% ; rv 23:15 BP 101 / 68; Pulse 85; Resp 16; Pulse Ox 100% ; bp 21:35 Body Mass Index 26.57 (68.04 kg, 160.02 cm) lg3 21:35 Pain Scale: Adult lg3 [place] Coma Score: 22:07 Eye Response: spontaneous(4). Motor Response: obeys commands(6). Verbal Response: rv oriented(5). Total: 15. 22:26 Eye Response: spontaneous(4). Motor Response: obeys commands(6). Verbal Response: zenia oriented(5). Total: 15. 23:50 Eye Response: spontaneous(4). Motor Response: obeys commands(6). Verbal Response: rv oriented(5). Total: 15. MDM: 21:32 Patient medically screened. zenia 22:26 Differential diagnosis: anaphylaxis, cluster headache, hyponatremia, neoplasm, subdural zenia hematoma, temporal arteritis, tension headache, traumatic injuries. Data reviewed: vital signs, nurses notes, lab test result(s), radiologic studies, CT scan. Consideration of Admission/Observation Escalation of care including admission/observation considered. I considered the following discharge prescriptions or medication management in the emergency department Medications were administered in the Emergency Department. See MAR. Test considered but Not performed: EKG: NO EKG. Care significantly affected by the following chronic conditions: RECENT BRAIN ANEURYSM SURGERY, ALLERGIC REACTION. 22:29 Independent interpretation of the following test(s) in the Emergency Department CT zenia Scan: My interpretation is CT BRAIN. 06/13 21:50 Order name: CBC with Diff; Complete Time: 22:49 zenia 06/13 21:50 Order name: Comprehensive Metabolic Panel; Complete Time: 22:49 [facility] 06/13 21:50 Order name: CT Head Brain wo Cont zenia Administered Medications: 22:06 Drug: NS 0.9% IV 500 ml IV at bolus once Route: IV; Rate: bolus; Site: right rv antecubital; 23:51 Follow up: IV Status: Completed infusion; IV Intake: 500ml rv 23:15 Drug: diphenhydrAMINE IVP 25 mg IVP once Route: IVP; Site: right antecubital; rv 23:50 Follow up: Response: No adverse reaction rv 23:15 Drug: Famotidine IVP 20 mg IVP once; dilute with 10 mL 0.9% NaCl; give over 2 minutes rv Route: IVP; Site: right antecubital; 23:50 Follow up: Response: No adverse reaction rv 23:15 Drug: predniSONE PO 40 mg PO once Route: PO; rv 23:50 Follow up: Response: No adverse reaction rv 23:15 Drug: MethylPrednisoLONE IVP 125 mg IVP once Route: IVP; Site: right antecubital; rv 23:50 Follow up: Response: No adverse reaction rv Disposition Summary: 06/13/23 23:40 Discharge Ordered Notes: Location: Home zenia Problem: new zenia Symptoms: have improved zenia Condition: Stable zenia Diagnosis - Allergy to other foods - CHOCOLATE zenia - Headache zenia Followup: zenia - With: Private Physician - When: 2 - 3 days - Reason: Recheck today's complaints, Continuance of care, Re-evaluation by your physician Followup: zenia - With: Cesar Echevarria MD - When: 2 - 3 days - Reason: Recheck today's complaints, Re-evaluation by your physician Discharge Instructions: - Discharge Summary Sheet zenia - How to Use an Auto-Injector Pen zenia - Food Allergy zenia - General Headache Without Cause zenia - General Headache Without Cause, [id number] zenia Forms: - Medication Reconciliation Form zenia - Thank You Letter zenia - Antibiotic Education zenia - Prescription Opioid Use zenia - Patient Portal Instructions zenia - Leadership Thank You Letter [facility] Prescriptions: - EpiPen 0.3 mg/0.3 mL Injection Auto-Injector - administer 0.3 milliliter INTRAMUSCULAR route once; 1 packet; Refills: 0, [facility] Product Selection Permitted - Benadryl 25 mg Oral Capsule - take 1 capsule ORAL route every 6 hours As needed; 30 tablet; Refills: 0, [facility] Product Selection Permitted - Pepcid 20 mg Oral tablet - take 1 tablet ORAL route every 12 hours for 14 days; 28 tablet; Refills: 0, [facility] Product Selection Permitted - Medrol (Sandip) 4 mg Oral Tablets, Dose Pack - take 1 tablet ORAL route as directed - follow package instructions; 1 packet; [facility] Refills: 0, Product Selection Permitted Signatures: Dispatcher [employer] Jesse Knox MD MD cha Vicente, Ronaldo, RN RN rv Opal Vann RN RN lg3 Corrections: (The following items were deleted from the chart) 21: 21:38 Allergies: No Known Allergies; lg3 lg3 40 21:39 PMHx: "aneurysm repair"; lg3 lg3
[2023-06-14 01:14] VITALS: TEMP 98.3
[2023-06-14 01:16] VITALS: O2SAT 100
[2023-06-14 01:18] VITALS: BP 101/68
--- OUTSIDE RECORDS SUMMARY | 2023-06-14 07:19 | XMS REPORT | Continuity of Care Document ---
:1995 Author Organization [facility] t Address [address] [place] [address] Care Team Providers Name Role Phone Pcp, Patient Does Not Have A Primary Care Physician +[id number] Doctor Unassigned, [place] Attending Clinician Unavailable Anmol NOWAK, Dev Dale Attending Clinician Cristian TADEO, Katherine Arteaga Attending Clinician Dom Molina MD Attending Clinician Wanda NOWAK, Callum Attending Clinician Rosangela Dawson MD Attending Clinician ROSANGELA DAWSON Attending Clinician Unavailable Buffy Soriano MD Attending Clinician [phone] Cecily TADEO, Maria Esther Muir Attending Clinician Unavailable Alhaji Culver MD Attending Clinician Call, [facility] Phone Attending Clinician Unavailable Valerie Hopson Attending Clinician Cecy Richards MD Attending Clinician Unavailable CECY RICHARDS Attending Clinician Unavailable Ghazala NOWAK, Charlene Street Attending Clinician [phone] Virtual, Surgeon Attending Clinician Unavailable Negrito Villanueva Attending Clinician Unavailable Anitha Wang MD Attending Clinician DEV ROLLINS Attending Clinician Unavailable DAVID TREVINO Attending Clinician Unavailable Dom Molina MD Admitting Clinician DOM MOLINA Admitting Clinician Unavailable CECY RICHARDSNora Admitting Clinician Unavailable DEV ROLLINS Admitting Clinician Unavailable DAVID TREVINO Admitting Clinician Unavailable Payers Payer Name Policy Type Policy Number Effective Date Expiration Date S ource Problems Condition Condition Condition Status Onset Resolution Last Treating Co mments Source Name Details Category Date Date Treatment Clinician Date 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 00:00: [place] artery artery 00 Medical Branch Aneurysm Aneurysm Disease Recurre 2021-[address] [facility] [facility] Cerebral Cerebral Disease Active [facility] 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 aneurysm 00:00: Medica l 00 Center [place] Disease Active [facility] p headache p headache 04-25 [facility] kes 00:00: Medical 00 Center Subarachno Subarachno Disease Recurre [facility] 7 kes hemorrhage hemorrhage 00:00: Me dical 00 Center No known No known Disease Unive rs active active ity of problems problems [facility] Allergies, Adverse Reactions, Alerts Allergy Allergy Status Severity Reaction(s) Onset Inactive Treating Comm ents Source Name Type Date Date Clinician CHOCOLAT DRUG Active SOB Univers E FLAVOR INGREDI 4- ity of 00:00: Medical Branch STRAWBER DRUG Active SOB Univers RY INGREDI 4-27 ity of 00:00: [facility] Branch TOMATO DRUG Active SOB Univers INGREDI 4-27 ity of 00:00: 00 Medical Branch Chocolat Propensi Active Shortness of And Univers e Flavor ty to Breath 01-19 swelling ity of adverse 00:00: [place] reaction 00 Medical s Branch Strawber Propensi Active Shortness of And Univers ry ty to Breath - swelling ity of adverse 00:00: [place] reaction 00 Medical s Branch Tomato Propensi Active Shortness of And Un nathaly ty to Breath 01-19 swelling ity of adverse 00:00: [place] reaction 00 Medical s Branch ASPIRIN Allergy Active High Other 2018-0 [facility] 7-28 00:00: 00 CHOCOLAT Allergy Active High Sob 2018-0 [facility] E FLAVOR 7 00:00: 00 Chocolat Propensi Active Shortness Of [facility] Flavor ty to Breath, 04-21 [facility] adverse Swelling 00:00: Medical reaction 00 Center s Strawber Propensi Active Shortness Of [address] ry ty to Breath, 04-21 [facility] adverse Swelling 00:00: Medical reaction 00 [place] s STRAWBER Allergy Active High Sob 2018-0 [facility] RY 7 00:00: 00 TOM[place] Allergy Active High Sob 2018-0 [facility] (SOLANUM 04-21 LYCOPERS 00:00: ICUM) 00 NO KNOWN Drug Active Univers ALLERGIE Class ity of S [place] [facility] Social History Social Habit Start Date Stop Date Quantity Comments Source History SDOH Social Unive rsity of Connections [facility] Med ical Together Branch History SDOH Social Unive rsity of Connections [facility] Medical Branch History SDOH Social Unive rsity of Connections [place] Medical Membership Branch History SDOH Social Unive rsity of Connections [place] Medical Meetings Branch History of tobacco Passive smoker Un iversity of use [place] [facility] History SDOH [facility] Alcohol Std Drinks Medica l [place] Exposure to 2023-01-27 2023-02-06 Not sure University of SARS-CoV-2 (event) 00:00:00 15:01:00 [place] [facility] History SDOH Social 2023-01-25 2023-01-25 5 Unive rsity of Connections Phone 00:00:00 00:00:00 [place] M edical Branch History SDOH Social 2023-01-25 2023-01-25 3 Unive rsity of Connections Living 00:00:00 00:00:00 [place] Medical [facility] History SDOH 2023-01-25 2023-01-25 5 University o f Financial 00:00:00 00:00:00 [place] [facility] History SDOH Food 2023-01-25 2023-01-25 1 Univers ity of Worry 00:00:00 00:00:00 [place] [facility] History [facility] Food 2023-01-25 2023-01-25 1 Univers ity of Scarcity 00:00:00 00:00:00 [place] [facility] History [facility] 2023-01-25 2023-01-25 2 University o f Transport Med 00:00:00 00:00:00 [place] Medic al Branch History [facility] 2023-01-25 2023-01-25 2 University o f Transport Non-Med 00:00:00 00:00:00 [place] M edical Branch History [facility] 2023-01-25 2023-01-25 2 University o f Housing Unable to 00:00:00 00:00:00 [place] M edical Pay Branch History [facility] 2023-01-25 2023-01-25 1 University o f Housing Places 00:00:00 00:00:00 [facility] sue Lived Branch History [facility] 2023-01-25 2023-01-25 2 University o f Housing Homeless 00:00:00 00:00:00 [place] Me dical Last Year Branch Tobacco use and 2022-10-03 2022-10-03 Smokeless Universit y of exposure 00:00:00 00:00:00 tobacco non-user [facility] dical Branch Alcohol Comment 2022-10-03 2022-10-03 social Universit y of 00:00:00 00:00:00 [facility] Alcohol intake 2022-09-01 2022-09-01 Ex-drinker [facility] 00:[facility] 00:00:00 (finding) Medical Center History [facility] 2019-04-21 2019-04-[address] [facility] Alcohol Frequency 00:00:00 00:00:00 Medical Center History [facility] 2019-04-21 2019-04-[address] [facility] Alcohol Binge 00:00:00 00:00:[address] Sex Assigned At [address] [facility] 00:00:00 00:00:00 Medical Center Smoking Status Start Date Stop Date Source Never smoked tobacco [facility] Medications Ordered Filled Start Stop Current Ordering Indication Dosage Frequency Signature Comments Components Source Medication Medication Date Date Medication? Clinician (SIG) Name Name ondansetron Yes [id number] 4mg Take 1 Univers 4 mg 5-06 tablet by ity of disintegrat 00:00: mouth [place] ing tablet 00 every 8 Medica l (eight) Branch hours as needed for Nausea and Vomiting (N/V). ondansetron 2022-0 Yes [id number] 4mg Take 1 Univers 4 mg 5-06 tablet by ity of disintegrat 00:00: mouth [place] ing tablet 00 every 8 Medica l (eight) Branch hours as needed for Nausea and Vomiting (N/V). ondansetron 2022-0 Yes [id number] 4mg Take 1 Univers 4 mg 5-06 tablet by ity of disintegrat 00:00: mouth [place] ing tablet 00 every 8 Medica l (eight) Branch hours as needed for Nausea and Vomiting (N/V). ondansetron 2022-0 Yes [id number] 4mg Take 1 Univers 4 mg 5-06 tablet by ity of disintegrat 00:00: mouth [place] ing tablet 00 every 8 Medica l (eight) Branch hours as needed for Nausea and Vomiting (N/V). ondansetron 2022-0 Yes [id number] 4mg Take 1 Univers 4 mg 5-06 tablet by ity of disintegrat 00:00: mouth [place] ing tablet 00 every 8 Medica l (eight) Branch hours as needed for Nausea and Vomiting (N/V). ondansetron 2022-0 Yes [id number] 4mg Take 1 Univers 4 mg 5-06 tablet by ity of disintegrat 00:00: mouth [place] ing tablet 00 every 8 Medica l (eight) Branch hours as needed for Nausea and Vomiting (N/V). oxyCODONE 2022-2022- No [id number] 10mg Take 1 Unive rs 10 mg Tab 5-06 05-14 tablet by ity of 00:00: 04:59 mouth [place] 00 :00 every 6 Medical (six) Branch hours as needed for Pain (scale 4-6) or Pain (scale 7-10) for up to 7 days. Indication s: acute pain oxyCODONE 3-0 2022- No 4647 10mg Take 1 Unive rs 10 mg Tab 5-06 05-14 tablet by ity of 00:00: 04:59 mouth [place] 00 :00 every 6 Medical (six) Branch hours as needed for Pain (scale 4-6) or Pain (scale 7-10) for up to 7 days. Indication s: acute pain oxyCODONE 2022- No 4647 10mg Take 1 Unive rs 10 mg Tab 01-2814 tablet by ity of 00:00: 04:59 mouth [place] 00 :00 every 6 Medical (six) Branch hours as needed for Pain (scale 4-6) or Pain (scale 7-10) for up to 7 days. Indication s: acute pain oxyCODONE Yes 10mg 10 mg, Univer s immediate 01-26 Oral, ity of release 21:45: Q6HPRN, [place] tablet 10 00 Starting Medica l mg on [place] Branch 01/26/23 at 1645, Until Discontinu ed, Routine, Pain (scale 4-6)
member of congress approving Restricted medication : DEV ROLLINS morpHINE (2 Yes 2mg 2 mg, Slow Univers mg/mL) 01-26 IV Push, ity of injection 2 21:29: Q4HPRN, [place] mg 57 Starting Medical on [place] Branch 01/26/23 at 1629, Until Discontinu ed, Routine, Pain (scale 7-10) heparin Yes 5000U 5,000 Univers (porcine) 01-26 Units, ity of injection 19:00: Subcut[place]o [place] 5,000 Units 00 us, Q8H, Medi sue First dose Branch on [facility] 01/26/23 at 1400, Until Discontinu ed, Routine NaCl 0.9% No 1000mL at 50 Univ ers (NS) IV 01-26 05-04 mL/hr, IV ity of infusion 13:15: 15:31 Infusion, [place] 1,000 mL 00 :28 CONTINUOUS Medic al , Starting Branch on [place] 01/26/23 at 0815, Until [facility] 01/26/23 at 1031, Routine KCL 2022- No 40meq 40 mEq, Univers (KLOR-CON 01-26 05-04 Oral, ity of M20) tablet 11:00: 10:06 ONCE, 1 [place] 40 mEq 00 :00 dose, On Medical [place] 01/26/23 Branch at 0600, Routine levETIRAcet 2023-0 Yes 500mg 500 mg, Un nathaly am (KEPPRA) 01-26 Oral, BID, it y of tablet 500 01:00: First dose [place] mg 00 on Mon01/25/23 at Branch 1999, Until Discontinu ed, Routine levETIRAcet 2023-0 2023- No 500mg 500 mg, U nivers am (KEPPRA) 01-26 05-06 Oral, BID, i ty of tablet 500 01:00: 13:02 First dose [place] mg 00 :54 on Mon01/25/23 at Branch 1999, Until Discontinu ed, Routine acetaminoph 2023-0 Yes 650mg 650 mg, Un nathaly en 5-03 Oral, Q6H, ity of (TYLENOL) 17:00: First dose [place] tablet 650 00 (after Medical mg last Branch modificati on) on Mon01/25/23 at 1200, Until Discontinu ed, Routine acetaminoph 2023-0 Yes 650mg 650 mg, Un nathaly en 5-03 Oral, Q6H, ity of (TYLENOL) 17:00: First dose [place] tablet 650 00 (after Medical mg last Branch modificati on) on Mon01/25/23 at 1200, Until Discontinu ed, Routine NaCl 0.9% 2023-0 Yes 1000mL at 75 Unive rs (NS) IV 5-03 mL/hr, IV ity of infusion 14:00: Infusion, [place] 1,000 mL 00 CONTINUOUS Medic al , Starting Branch on Mon01/25/23 at 0900, Until Discontinu ed, Routine docusate 2023-0 Yes 100mg 100 mg, Unive rs (COLACE) 01-25 Oral, ity of capsule 100 14:00: DAILY, [place] mg 00 First dose Medical on Mon01/25/23 at 0900, Until Discontinu ed, Routine docusate 2023-0 Yes 100mg 100 mg, Unive rs (COLACE) 5-03 Oral, ity of capsule 100 14:00: DAILY, [place] mg 00 First dose Medical on Mon01/25/23 at 0900, Until Discontinu ed, Routine NaCl 0.9% 2023-0 2023- No 1000mL at 75 Univ ers (NS) IV 5-03 05-04 mL/hr, IV ity of infusion 14:00: 13:04 Infusion, [place] 1,000 mL 00 :36 CONTINUOUS Medic al , Starting Branch on Mon01/25/23 at 0900, Until [place] 01/26/23 at 0804, Routine omeprazole 2022- No 20mg 20 mg, [facility] ers (PRILOSEC) 01-25 Oral, ity of capsule 20 14:00: 16:09 DAILY, [place] mg 00 :25 First dose Medical on Mon Branch 01/25/23 at 0900, Until Discontinu ed, Routine proMETHazin 2022- No 12.5mg 12.5 mg, [facility] e 01-25 IV ity of (PHENERGAN) 02:36: 02:35 Piggyback, [place] 12.5 mg in 13 :13 at 200 Medical NS 50 mL IV mL/hr Branch piggyback Administer (CNR) over 15 Minutes, Q6HPRN, Starting on Mon01/24/23 at 2136, Until Mon02/17/23 at 2135, Routine, Nausea and Vomiting (N/V) proMETHazin 2022- No 12.5mg 12.5 mg, [facility] 01-25 IV ity of (PHENERGAN) 02:36: 02:35 Piggyback, [place] 12.5 mg in 13 :13 at 200 Medical NS 50 mL IV mL/hr Branch piggyback Administer (CNR) over 15 Minutes, Q6HPRN, Starting on Mon01/24/23 at 213, Until Mon02/17/23 at 2135, Routine, Nausea and Vomiting (N/V) levETIRAcet 2022- No 500mg 500 mg, IV Univers am (KEPPRA) 01-25 Piggyback, i ty of in NACL 01:00: 13:46 BID, First [place] as (ISO-OS) 00 :44 dose on Medical 500 mg/100 Mon01/24/23 Bra nch mL RTU at 2000, Until Discontinu ed, Administer over 15 Minutes, 100 mL niCARdipine 2022- No 2.5mg/h 2.5-15 Univers (CARDENE 01-24-03 mg/hr ity of I.V.) 40 mg 23:06: 16:09 (12.5-75 [place] in NaCL 200 58 :25 mL/hr), IV Me dical mL (RTU) Infusion, Branch infusion TITRATE, SBP Goal < 180 mmHg, SBP 100-140, Starting on Mon01/24/23 at 1806
In itiate infusion at 2.5 mg/hr.&nbs p; Ti trate by 2.5 mg/hr every 5 minutes to 15 minutes as needed to achieve and maintain goal blood pressure. Maximum dose = 15 mg/hr. If goal not maintained at maximum allowed dose, contact prescriber .
dexamethaso 0 2022- No 4mg 4 mg, Slow Univers ne 01-2403 IV Push, ity of (DECADRON 23:00: 10:02 Q6H, 3 [place] PHOSPHATE) 00 :00 doses, Medical injection 4 First dose Br anch mg on Mon01/24/23 at 1800, Last dose on Mon01/25/23 at 0600, Routine NaCl 0.9% 2022- No 1000mL at 50 Univ ers (NS) IV 01-24-03 mL/hr, IV ity of infusion 22:15: 13:46 Infusion, [place] 1,000 mL 00 :44 CONTINUOUS Medic al , Starting Branch on Mon01/24/23 at 1715, Until Mon01/25/23 at 0846, Routine ondansetron 2022-0 Yes 4mg 4 mg, Slow Univers (ZOFRAN -02 IV Push, ity of (PF)) 22:06: Q6HPRN, [place] injection 4 38 Starting Medi sue mg on Mon Branch 01/24/23 at 1706, Until Discontinu ed, Routine, Nausea and Vomiting (N/V) ondansetron 2022-0 Yes 4mg 4 mg, Slow Univers (ZOFRAN 5-02 IV Push, ity of (PF)) 22:06: Q6HPRN, [place] injection 4 38 Starting Medi sue mg on e Branch 01/24/23 at 1706, Until Discontinu ed, Routine, Nausea and Vomiting (N/V) morpHINE (2 2023-0 Yes 2mg 2 mg, Slow Univers mg/mL) 01-24 IV Push, ity of injection 2 22:06: Q2HPRN, [place] mg 34 Starting Medical on [facility] 01/24/23 at 1706, Until Discontinu ed, Routine, Pain (scale 7-10) morpHINE (2 2022- No 2mg 2 mg, Slow Univers mg/mL) 01-24 IV Push, ity of injection 2 22:06: 16:15 Q2HPRN, [place] mg 34 :47 Starting Medical on [facility] 01/24/23 at 1706, Until Mon01/26/23 at 1115, Routine, Pain (scale 7-10) oxyCODONE Yes 5mg 5 mg, Univers immediate 01-24 Oral, ity of release 22:06: Q4HPRN, [place] tablet 5 mg 26 Starting Medi sue on [facility] 01/24/23 at 1706, Until Discontinu ed, Routine, Pain (scale 4-6)
Fa culty member approving Restricted medication : DEV ROLLINS oxyCODONE 2022- No 5mg 5 mg, Univer s immediate 01-24 Oral, ity of release 22:06: 21:30 Q4HPRN, [place] tablet 5 mg 26 :57 Starting Medi sue on [facility] 01/24/23 at 1706, Until Mon01/26/23 at 1630, Routine, Pain (scale 4-6)
Fa culty member approving Restricted medication : DEV ROLLINS acetaminoph No 325mg 325 mg, U nivers en 01-2403 Oral, ity of (TYLENOL) 22:06: 13:46 Q6HPRN, [place] tablet 325 25 :44 Starting Medic al mg on [facility] 01/24/23 at 1706, Until Mon01/25/23 at 0846, Routine, Pain (scale 1-3) thrombin Yes PRN, Univers topical 01-24 Starting ity of solution 14:51: on Mon [place] 01/24/23 at [facility] 0951, Branch Until Discontinu ed, Routine, Intra-op lidocaine-e 2023-0 Yes PRN, Univer s pinephrine - Starting ity o f (XYLOCAINE 13:34: on Mon WITH 00 01/24/23 at Medical EPINEPHRINE 0834, Branch ) 0.5 Until %-1:200,000 Discontinu injection ed, Routine, Intra-op No known 2022-0 No No known Unive rs medications 1-09 medication it y of 13:45: [address] No known 2022-0 No No known Unive rs medications 1-09 medication it y of 13:45: [address] No known 2023-0 No No known Unive rs medications 1-09 medication it y of 13:45: [address] No known 2022-0 No No known Unive rs medications 1-09 medication it y of 13:45: [address] No known 2022-0 No No known Unive rs medications 1-09 medication it y of 13:45: [address] No known 2022-0 No No known Unive rs medications 1-09 medication it y of 13:45: [address] No known 2023-0 No No known Unive rs medications 1-09 medication it y of 13:45: [address] No known 3-0 No No known Unive rs medications 1-09 medication it y of 13:45: [address] No known 3-0 No No known Unive rs medications 1-09 medication it y of 13:45: [address] 2021-09 Yes 1{tbl} QD Take 1 [facility] vitamin 2-08 tablet by [facility] w/calcium-i 14:17: mouth Medic al [place]-folate 01 daily. [place] ( PLUS) 27 mg iron- 1 mg Tab 2021-09 Yes 1{tbl} QD Take 1 [facility] vitamin 2-08 tablet by [facility] w/calcium-i 14:17: mouth Medic al [place]ola-folate 01 daily. [place] ( PLUS) 27 mg iron- 1 mg Tab 2021-09 Yes 1{tbl} QD Take 1 [facility] t vitamin 2-08 tablet by [facility] w/calcium-i 14:17: mouth Medic al [place]-folate 01 daily. [place] ( PLUS) 27 mg iron- 1 mg Tab 2022-1 Yes 1{tbl} QD Take 1 [facility] t vitamin 2-08 tablet by [facility] w/calcium-i 14:17: mouth Medic al [place]ola-folate 01 daily. [place] ( PLUS) 27 mg iron- 1 mg Tab 2021-09 Yes 1{tbl} QD Take 1 [facility] t vitamin 2-08 tablet by [facility] w/calcium-i 14:17: mouth Medic al [place]-folate 01 daily. Center ( PLUS) 27 mg iron- 1 mg Tab 2021-09 Yes 1{tbl} QD Take 1 [facility] t vitamin 2-08 tablet by [facility] w/calcium-i 14:17: mouth Medic al [place]-folate 01 daily. [place] ( PLUS) 27 mg iron- 1 mg Tab 2021-09 Yes 1{tbl} QD Take 1 [facility] t vitamin 2-08 tablet by [facility] w/calcium-i 14:17: mouth Medic al [place]-folate 01 daily. [place] ( PLUS) 27 mg iron- 1 mg Tab 2021-09 Yes 1{tbl} QD Take 1 [facility] t vitamin 2-08 tablet by [facility] w/calcium-i 14:17: mouth Medic al [place]ola-folate 01 daily. [place] ( PLUS) 27 mg iron- 1 mg Tab 2021-09 Yes 1{tbl} QD Take 1 [facility] t vitamin 2-08 tablet by [facility] w/calcium-i 14:17: mouth Medic al paola-folate 01 daily. [place] ( PLUS) 27 mg iron- 1 mg Tab 2021-09 Yes 1{tbl} QD Take 1 [facility] t vitamin 2-08 tablet by [facility] w/calcium-i 14:17: mouth Medic al paola-folate 01 daily. [place] ( PLUS) 27 mg iron- 1 mg Tab 2021-09 Yes 1{tbl} QD Take 1 [facility] t vitamin 2-08 tablet by [facility] w/calcium-i 14:17: mouth Medic al paola-folate 01 daily. [place] ( PLUS) 27 mg iron- 1 mg Tab 2021-09 Yes 1{tbl} QD Take 1 [facility] t vitamin 2-08 tablet by [facility] w/calcium-i 14:17: mouth Medic al [place]ola-folate 01 daily. [place] ( PLUS) 27 mg iron- 1 mg Tab 2021-09 Yes 1{tbl} QD Take 1 [facility] t vitamin 2-08 tablet by [facility] w/calcium-i 14:17: mouth Medic al paola-folate 01 daily. [place] ( PLUS) 27 mg iron- 1 mg Tab 2021-09 Yes 1{tbl} QD Take 1 [facility] vitamin 2-08 tablet by [facility] w/calcium-i 07:57: mouth Medic al paola-folate 55 daily. [place] ( PLUS) 27 mg iron- 1 mg Tab Vital Signs Vital Name Observation Time Observation Value Comments Source Systolic blood 2023-02-06 20:21:00 106 mm[Hg] Univer sity of [facility] Diastolic blood 2023-02-06 20:21:00 71 mm[Hg] [facility] Heart rate 2023-02-06 20:21:00 82 /min General acute hospital Body height 2023-02-06 20:21:00 160 cm General acute hospital Body weight 2023-02-06 20:21:00 68.04 kg General acute hospital BMI 2023-02-06 20:21:00 26.57 kg/m2 General acute hospital Systolic blood 2023-01-28 08:26:00 94 mm[Hg] Univer sity [facility] Diastolic blood 2023-01-28 08:26:00 69 mm[facility]Hg] [facility] 2023-01-28 08:26:00 73 /min General acute hospital Body temperature 2023-01-28 08:26:00 36.67 Elva [facility] Respiratory rate 2023-01-28 08:26:00 17 /min Univ [facility] Oxygen saturation in 2023-01-28 08:26:00 98 /min [facility] Arterial blood by [facility] Pulse oximetry Branch Body height 2023-01-25 00:54:00 [facility] 2023-01-25 00:54:00 [facility] 2023-01-25 00:54:00 26.57 kg/m2 General acute hospital Systolic blood 2023-01-24 21:00:00 119 mm[Hg] Univer sity [facility] Diastolic blood 2023-01-24 21:00:00 49 mm[Hg] Unive rsity of pressure [place] [facility] Heart rate 2023-01-24 21:00:00 70 /min Universi ty of [place] [facility] Respiratory rate 2023-01-24 21:00:00 14 /min Univ ersity of [place] [facility] Oxygen saturation in 2023-01-24 21:00:00 98 /min University of Arterial blood by [place] [employer] sue Pulse oximetry Branch Body temperature 2023-01-24 11:37:00 36.33 Elva Univ ersity of [place] [facility] Body height 2023-01-24 11:37:00 160 cm Universi ty of [place] [facility] Body weight 2023-01-24 11:37:00 70.8 kg Universi ty of [place] [facility] BMI 2023-01-24 11:37:00 26.57 kg/m2 Universi ty of [place] [facility] Body weight 2023-01-19 16:00:00 68 kg Universi ty of [place] [facility] BMI 2023-01-19 16:00:00 26.56 kg/m2 Universi ty of [place] [facility] Systolic blood 2022-11-07 21:23:00 123 mm[Hg] Univer sity of pressure [place] [facility] Diastolic blood 2022-11-07 21:23:00 78 mm[Hg] Unive rsity of pressure [place] [facility] Heart rate 2022-11-07 21:23:00 87 /min Universi ty of [place] [facility] Body temperature 2022-11-07 21:23:00 36.28 Elva Univ ersity of [place] [facility] Respiratory rate 2022-11-07 21:23:00 18 /min Univ ersity of [place] [facility] Body height 2022-11-07 21:23:00 160 cm Universi ty of [place] [facility] Body weight 2022-11-07 21:23:00 68.04 kg Universi ty of [place] [facility] BMI 2022-11-07 21:23:00 26.57 kg/m2 Universi ty of [place] [facility] Oxygen saturation in 2022-11-07 21:23:00 99 /min University of Arterial blood by [place] Medi sue Pulse oximetry Branch Systolic blood 2022-10-03 19:23:00 112 mm[Hg] Univer sity of pressure [place] [facility] Diastolic blood 2022-10-03 19:23:00 72 mm[Hg] Unive rsity of pressure [facility] Heart rate 2022-10-03 19:23:00 82 /min Universi ty of [facility] Body height 2022-10-03 19:23:00 160 cm Universi ty of [facility] Body weight 2022-10-03 19:23:00 68.04 kg Universi ty of [facility] BMI 2022-10-03 19:23:00 26.57 kg/m2 Universi ty of [facility] HEIGHT 2022-08-31 10:38:00 160 cm WEIGHT 2022-08-31 10:38:00 67.586 kg HEIGHT 2022-08-31 10:38:00 160 cm WEIGHT 2022-08-31 10:38:00 67.586 kg HEIGHT 2022-08-31 10:38:00 160 cm WEIGHT 2022-08-31 10:38:00 67.586 kg Systolic blood 2023-01-26 16:50:00 108 mm[Hg] Univer sity of [facility] Diastolic blood 2023-01-26 16:50:00 65 mm[Hg] Unive rsity of pressure [facility] Heart rate 2023-01-26 16:50:00 89 /min Universi ty of [facility] Body temperature 2023-01-26 16:50:00 36.67 Elva Univ ersity of [facility] Respiratory rate 2023-01-26 16:50:00 17 /min [facility] O[facility] in 2023-01-26 16:50:00 97 /min [facility] Arterial blood by [facility] Pulse oximetry Branch Body height 2023-01-25 00:54:00 160 cm Universi ty of [facility] Body weight 2023-01-25 00:54:00 68.04 kg Universi ty of [facility] BMI 2023-01-25 00:54:00 26.57 kg/m2 Universi ty of [facility] Systolic blood 2022-09-01 13:00:00 120 mm[Hg] [facility] Di[facility] blood 2022-09-01 13:00:00 64 mm[Hg] [facility] Heart rate 2022-09-01 13:00:00 85 /min Doctors [facility] Body temperature 2022-09-01 13:00:00 36.5 Elva [facility] Respiratory rate 2022-09-01 13:00:00 18 /min [facility] Oxygen saturation in 2022-09-01 13:00:00 99 /min [facility] Arterial blood by Medical Ce nter Pulse oximetry Systolic blood 2022-09-01 07:45:00 117 mm[Hg] [facility] Diastolic blood 2022-09-01 07:45:00 74 mm[Hg] [facility] Heart rate 2022-09-01 07:45:00 78 /min [facility] Body temperature 2022-09-01 07:45:00 37 Elva [facility] Respiratory rate 2022-09-01 07:45:00 18 /min [facility] Oxygen saturation in 2022-09-01 07:45:00 100 /min [facility] Arterial blood by Medical Ce nter Pulse oximetry Body height 2022-08-31 10:38:00 160 cm [facility] Body weight 2022-08-31 10:38:00 67.586 kg [facility] BMI 2022-08-31 10:38:00 26.39 kg/m2 [facility] Procedures Procedure Date / Time Performing Clinician Source Performed DISABILITY/FMLA 2023-02-22 05:01:00 Doctor Unassigned, [facility] [place] [facility] COMP. METABOLIC PANEL 2023-01-27 10:59:00 Rosangela Dawson [facility] ([id number]) Medical Branch CBC WITH DIFF 2023-01-26 08:14:00 Seth [facility] BASIC METABOLIC PANEL 2023-01-26 08:14:00 Andrew Ann [facility] (NA, K, CL, CO2, GLUCOSE, Medica l Branch BUN, CREATININE, CA) MAGNESIUM 2023-01-26 08:14:00 Seth [facility] PHOSPHORUS 2023-01-26 08:14:00 Seth [facility] PHOSPHORUS 2023-01-26 08:14:00 Seth [facility] MAGNESIUM 2023-01-26 08:14:00 Seth [facility] BASIC METABOLIC PANEL 2023-01-26 08:14:00 [facility] K, CL, CO2, GLUCOSE, Medica l Branch BUN, CREATININE, CA) CBC WITH DIFF 2023-01-26 08:14:00 Seth [facility] CT HEAD WO CONTRAST 2023-01-25 09:45:23 Ming [facility] CT HEAD WO CONTRAST 2023-01-25 09:45:23 Ming [facility] CT HEAD WO CONTRAST 2023-01-25 09:45:23 Ming [facility] BASIC METABOLIC PANEL 2023-01-25 08:55:00 Raghu Lai [facility] (NA, K, CL, CO2, GLUCOSE, [facility] Medica l Branch BUN, CREATININE, CA) CBC WITH DIFF 2023-01-25 08:55:00 Ming [facility] [place] CBC WITH DIFF 2023-01-25 08:55:00 Ming [facility] [place] BASIC METABOLIC PANEL 2023-01-25 08:55:00 Raghu Lai [facility] (NA, K, CL, CO2, GLUCOSE, [facility] BUN, CREATININE, CA) BASIC METABOLIC PANEL 2023-01-25 08:55:00 Raghu Lai [facility] (NA, K, CL, CO2, GLUCOSE, [facility] BUN, CREATININE, CA) CBC WITH DIFF 2023-01-25 08:55:00 Ming [facility] [place] IR ANGIOGRAM CEREBRAL 2023-01-24 21:55:00 Raghu Lai [facility] IR ANGIOGRAM CEREBRAL 2023-01-24 21:55:00 Raghu Lai [facility] IR ANGIOGRAM CEREBRAL 2023-01-24 21:55:00 Raghu Lai [facility] ISTAT ACUTE CARE ARTERIAL 2023-01-24 20:54:00 Jesse Dom [facility] ACUTE CARE ARTERIAL 2023-01-24 20:54:00 Jesse Dom [facility] ACUTE CARE ARTERIAL 2023-01-24 20:54:00 Jesse Dom [facility] ACUTE CARE ARTERIAL 2023-01-24 13:23:00 Dev Rollins [facility] ACUTE CARE ARTERIAL 2023-01-24 13:23:00 Dev Rollins [facility] ACUTE CARE ARTERIAL 2023-01-24 13:23:00 Dev Rollins [facility] INTUBATION 2023-01-24 12:39:00 Nicki [facility] ABORH CONFIRMATION (LAB 2023-01-24 12:24:00 [facility] ONLY) Medical Branch ABORH CONFIRMATION (LAB 2023-01-24 12:24:00 [facility] ONLY) Medical Branch ABORH CONFIRMATION (LAB 2023-01-24 12:24:00 [facility] ONLY) Medical Branch ARTERIAL LINE 2023-01-24 12:10:00 Nicki [facility] ANEURYSM CLIPPING 2023-01-24 12:05:00 Dev Rollins [facility] ANEURYSM CLIPPING 2023-01-24 12:05:00 Dev Rollins [facility] ANEURYSM CLIPPING 2023-01-24 12:05:00 Dev Rollins [facility] POCT TEST 2023-01-24 11:30:00 [facility] POCT TEST 2023-01-24 11:30:00 [facility] POCT TEST 2023-01-24 11:30:00 [facility] BASIC METABOLIC PANEL 2023-01-24 11:14:00 Alesia Taylor [facility] (NA, K, CL, CO2, GLUCOSE, Medica l Branch BUN, CREATININE, CA) CBC WITH DIFF 2023-01-24 11:14:00 [facility] HB ABO GROUPING 2023-01-24 11:14:00 [facility] CBC WITH DIFF 2023-01-24 11:14[facility] 2023-01-24 [facility], [facility], CL, CO2, GLUCOSE, Medica l Branch BUN, CREATININE, CA) HB ABO GROUPING 2023-01-24 11:14:00 Keely [place] BASIC METABOLIC PANEL 2023-01-24 11:14[facility] ([facility], K, CL, CO2, GLUCOSE, Medica l Branch BUN, CREATININE, CA) CBC WITH DIFF 2023-01-24 11:14:00 [facility] HB ABO GROUPING 2023-01-24 11:14:00 Keely [place] NOTICE OF PRIVACY 2023-01-24 10:19:09 [facility] PRACTICES [place] [facility] CONSENT/REFUSAL FOR 2023-01-24 10:18:30 Doctor Nasim [facility] DIAGNOSIS AND TREATMENT [place] [facility] ASSIGNMENT OF BENEFITS 2023-01-24 10:18:10 Doctor Alicemarjorie, [facility] [place] [facility] ASSIGNMENT OF BENEFITS 2023-01-24 10:18:10 Doctor Nasim, [facility] [place] [facility] PATIENT FINANCIAL 2022-11-07 06:01:[address] [facility] RESPONSIBILITY - ALL [place] [facility] pending sale to [facility] FORMS PATIENT FINANCIAL 2022-11-07 06:01:[address] [facility] RESPONSIBILITY - ALL [place] [facility] pending sale to [facility] FORMS EXTERNAL PROVIDER RECORDS 2022-10-20 06:01:00 [facility] [place] [facility] PROCEDURE, IN 2022-09-01 09:26:00 Virtual, Surgeon [facility] NON-OPERATING ROOM Center SETTING NV CEREBRAL 4 VESSEL 2022-09-01 09:00:00 [facility] ANGIOGRAM Center SCREEN, URINE 2022-09-01 07:57:00 [facility] ECG 12-LEAD 2022-09-01 07:31:26 [facility] ECG 12-LEAD 2022-09-01 07:31:26 [facility] CBC W/PLT COUNT & AUTO 2022-09-01 07:30:00 [facility] PT/APTT 2022-09-01 07:30:00 [facility] BASIC METABOLIC PANEL 2022-09-01 07:30:00 [facility] CBC W/PLT COUNT & AUTO 2022-09-01 07:30:00 [facility] Plan of Care Planned Activity Planned Date Details Comments Source Future Scheduled 2032-04-08 DTAP/TDAP/TD VACCINES ([address] [facility] Test 00:00:00 - Td or Tdap) [code = Medica l Center DTAP/TDAP/TD VACCINES (2 - Td or Tdap)] Future Scheduled 2032-04-08 DTAP/TDAP/TD VACCINES ([address] [facility] Test 00:00:00 - Td or Tdap) [code = Medica l Center DTAP/TDAP/TD VACCINES (2 - Td or Tdap)] Future Scheduled 2032-04-08 DTAP/TDAP/TD VACCINES ([address] [facility] Test 00:00:00 - Td or Tdap) [code = Medica l Center DTAP/TDAP/TD VACCINES (2 - Td or Tdap)] Future Scheduled 2032-04-08 DTAP/TDAP/TD VACCINES ([address] [facility] Test 00:00:00 - Td or Tdap) [code = Medica l Center DTAP/TDAP/TD VACCINES (2 - Td or Tdap)] Future Scheduled 2032-04-08 DTAP/TDAP/TD VACCINES ([address] [facility] Test 00:00:00 - Td or Tdap) [code = Medica l Center DTAP/TDAP/TD VACCINES (2 - Td or Tdap)] Future Scheduled 2032-04-08 DTAP/TDAP/TD VACCINES ([address] [facility] Test 00:00:00 - Td or Tdap) [code = Medica l Center DTAP/TDAP/TD VACCINES (2 - Td or Tdap)] Future Scheduled 2032-04-08 DTAP/TDAP/TD VACCINES ([address] [facility] Test 00:00:00 - Td or Tdap) [code = Medica l Center DTAP/TDAP/TD VACCINES (2 - Td or Tdap)] Future Scheduled 2032-04-08 DTAP/TDAP/TD VACCINES ([address] [facility] Test 00:00:00 - Td or Tdap) [code = Medica l Center DTAP/TDAP/TD VACCINES (2 - Td or Tdap)] Future Scheduled 2032-04-08 DTAP/TDAP/TD VACCINES ([address] [facility] Test 00:00:00 - Td or Tdap) [code = Medica l Center DTAP/TDAP/TD VACCINES (2 - Td or Tdap)] Future Scheduled 2032-04-08 DTAP/TDAP/TD VACCINES ([address] [facility] Test 00:00:00 - Td or Tdap) [code = Medica l Center DTAP/TDAP/TD VACCINES (2 - Td or Tdap)] Future Scheduled 2032-04-08 DTAP/TDAP/TD VACCINES ([address] [facility] Test 00:00:00 - Td or Tdap) [code = Medica l Center DTAP/TDAP/TD VACCINES (2 - Td or Tdap)] Future Scheduled 2032-04-08 DTAP/TDAP/TD VACCINES ([address] [facility] Test 00:00:00 - Td or Tdap) [code = Medica l Center DTAP/TDAP/TD VACCINES (2 - Td or Tdap)] Future Scheduled 2032-04-08 DTAP/TDAP/TD VACCINES ([address] [facility] 00:00:00 - Td or Tdap) [code = Medica l Center DTAP/TDAP/TD VACCINES (2 - Td or Tdap)] Future Scheduled 2032-04-08 DTAP/TDAP/TD VACCINES ([address] [facility] 00:00:00 - Td or Tdap) [code = Medica l Center DTAP/TDAP/TD VACCINES (2 - Td or Tdap)] Future Scheduled 2023-09-[address] [facility] Test 00:00:00 Counseling and Screening Med ical Center (12+) [code = Tobacco Cessation Counseling and Screening (12+)] Future Scheduled 2023-09-[address] [facility] Test 00:00:00 Counseling and Screening Med ical Center (12+) [code = Tobacco Cessation Counseling and Screening (12+)] Future Scheduled 2023-09-[address] [facility] 00:00:00 Counseling and Screening Med ical Center (12+) [code = Tobacco Cessation Counseling and Screening (12+)] Future Scheduled 2023-09-[address] [facility] 00:00:00 Counseling and Screening Med ical Center (12+) [code = Tobacco Cessation Counseling and Screening (12+)] Future Scheduled 2023-09-[address] [facility] 00:00:00 Counseling and Screening Med ical Center (12+) [code = Tobacco Cessation Counseling and Screening (12+)] Future Scheduled 2023-09-[address] [facility] 00:00:00 Counseling and Screening Med ical Center (12+) [code = Tobacco Cessation Counseling and Screening (12+)] Future Scheduled 2023-09-[address] [facility] 00:00:00 Counseling and Screening Med ical Center (12+) [code = Tobacco Cessation Counseling and Screening (12+)] Future Scheduled 2023-09-[address] [facility] 00:00:00 Counseling and Screening Med ical Center (12+) [code = Tobacco Cessation Counseling and Screening (12+)] Future Scheduled 2023-09-[address] [facility] 00:00:00 Counseling and Screening Med ical Center (12+) [code = Tobacco Cessation Counseling and Screening (12+)] Future Scheduled 2023-09-[address] [facility] 00:00:00 Counseling and Screening Med ical Center (12+) [code = Tobacco Cessation Counseling and Screening (12+)] Future Scheduled 2023-09-[address] [facility] 00:00:00 Counseling and Screening Med ical Center (12+) [code = Tobacco Cessation Counseling and Screening (12+)] Future Scheduled 2023-09-[address] [facility] 00:00:00 Counseling and Screening Med ical Center (12+) [code = Tobacco Cessation Counseling and Screening (12+)] Future Scheduled 2023-09-[address] [facility] 00:00:00 Counseling and Screening Med ical Center (12+) [code = Tobacco Cessation Counseling and Screening (12+)] Future Scheduled 2023-08-[address] [facility] 00:00:00 Counseling and Screening Med ical Center (12+) [code = Tobacco Cessation Counseling and Screening (12+)] Future Scheduled 2023-05-26 INFLUENZA VACCINE (Season [facility] 00:00:00 Ended) [code = INFLUENZA Med ical Center VACCINE (Season Ended)] Future Scheduled 2023-05-26 INFLUENZA VACCINE (Season [facility] 00:00:00 Ended) [code = INFLUENZA Med ical Center VACCINE (Season Ended)] Future Scheduled 2023-05-26 INFLUENZA VACCINE (Season [facility] 00:00:00 Ended) [code = INFLUENZA Med ical Center VACCINE (Season Ended)] Future Scheduled 2023-05-26 Influenza Vaccine (#1) [facility] 00:00:00 [code = Influenza Vaccine Me dical Center (#1)] Future Scheduled 2023-05-26 Influenza Vaccine (#1) [facility] 00:00:00 [code = Influenza Vaccine Me dical Center (#1)] Future Scheduled 2023-05-26 Influenza Vaccine (#1) [facility] 00:00:00 [code = Influenza Vaccine Me dical Center (#1)] Future Scheduled 2022-09-[address] [facility] 00:00:00 (12+) [code = DEPRESSION Med ical Center SCREENING (12+)] Future Scheduled 2022-09-[address] [facility] 00:00:00 (12+) [code = DEPRESSION Med ical Center SCREENING (12+)] Future Scheduled 2022-09-[address] [facility] 00:00:00 (12+) [code = DEPRESSION Med ical Center SCREENING (12+)] Future Scheduled 2022-09-[address] [facility] 00:00:00 (12+) [code = DEPRESSION Med ical Center SCREENING (12+)] Future Scheduled 2022-09-[address] [facility] 00:00:00 (12+) [code = DEPRESSION Med ical Center SCREENING (12+)] Future Scheduled 2022-09-[address] [facility] 00:00:00 (12+) [code = DEPRESSION Med ical Center SCREENING (12+)] Future Scheduled 2022-09-[address] [facility] 00:00:00 (12+) [code = DEPRESSION Med ical Center SCREENING (12+)] Future Scheduled 2022-09-[address] [facility] 00:00:00 (12+) [code = DEPRESSION Med ical Center SCREENING (12+)] Future Scheduled 2022-09-[address] [facility] 00:00:00 (12+) [code = DEPRESSION Med ical Center SCREENING (12+)] Future Scheduled 2022-05-26 INFLUENZA VACCINE (#1) [facility] 00:00:00 [code = INFLUENZA VACCINE Me dical Center (#1)] Future Scheduled 2022-05-26 INFLUENZA VACCINE (#1) [facility] 00:00:00 [code = INFLUENZA VACCINE Me dical Center (#1)] Future Scheduled 2022-05-26 INFLUENZA VACCINE (#1) [facility] 00:00:00 [code = INFLUENZA VACCINE Me dical Center (#1)] Future Scheduled 2022-05-26 INFLUENZA VACCINE (#1) [facility] 00:00:00 [code = INFLUENZA VACCINE Me dical Center (#1)] Future Scheduled 2022-05-26 INFLUENZA VACCINE (#1) [facility] 00:00:00 [code = INFLUENZA VACCINE Me dical Center (#1)] Future Scheduled 2022-05-26 INFLUENZA VACCINE (#1) [facility] 00:00:00 [code = INFLUENZA VACCINE Me dical Center (#1)] Future Scheduled 2022-05-26 INFLUENZA VACCINE (#1) [facility] 00:00:00 [code = INFLUENZA VACCINE Me dical Center (#1)] Future Scheduled 2022-05-26 INFLUENZA VACCINE (#1) [facility] 00:00:00 [code = INFLUENZA VACCINE Me dical Center (#1)] Future Scheduled 2021-09-[address] [facility] 00:00:00 (12+) [code = DEPRESSION Med ical Center SCREENING (12+)] Future Scheduled 2021-09-[address] [facility] 00:00:00 (12+) [code = DEPRESSION Med ical Center SCREENING (12+)] Future Scheduled 2021-09-[address] [facility] 00:00:00 (12+) [code = DEPRESSION Med ical Center SCREENING (12+)] Future Scheduled 2021-09-[address] [facility] 00:00:00 (12+) [code = DEPRESSION Med ical Center SCREENING (12+)] Future Scheduled 2021-09-[address] [facility] 00:00:00 (12+) [code = DEPRESSION Med ical Center SCREENING (12+)] Future Scheduled 2015 Screening for malignant [facility] 00:00:00 neoplasm of cervix Medical C enter (procedure) [code = 211991467] Future Scheduled 2015 Screening for malignant [facility] 00:00:00 neoplasm of cervix Medical C enter (procedure) [code = 155175555] Future Scheduled 2015 Screening for malignant [facility] 00:00:00 neoplasm of cervix Medical C enter (procedure) [code = 692553975] Future Scheduled 2015 Screening for malignant [facility] 00:00:00 neoplasm of cervix Medical C enter (procedure) [code = 727361027] Future Scheduled 2015 Screening for malignant [facility] 00:00:00 neoplasm of cervix Medical C enter (procedure) [code = 963268546] Future Scheduled 2015 Screening for malignant [facility] 00:00:00 neoplasm of cervix Medical C enter (procedure) [code = 351236950] Future Scheduled 2015 Screening for malignant [facility] 00:00:00 neoplasm of cervix Medical C enter (procedure) [code = 397695311] Future Scheduled 2015 Screening for malignant [facility] 00:00:00 neoplasm of cervix Medical C enter (procedure) [code = 929969441] Future Scheduled 2015 Screening for malignant [facility] 00:00:00 neoplasm of cervix Medical C enter (procedure) [code = 610742231] Future Scheduled 2015 Screening for malignant [facility] 00:00:00 neoplasm of cervix Medical C enter (procedure) [code = 669565698] Future Scheduled 2015 Screening for malignant [facility] 00:00:00 neoplasm of cervix Medical C enter (procedure) [code = 907182451] Future Scheduled 2015 Screening for malignant [facility] 00:00:00 neoplasm of cervix Medical C enter (procedure) [code = 960450344] Future Scheduled 2015 Screening for malignant [facility] 00:00:00 neoplasm of cervix Medical C enter (procedure) [code = 405472782] Future Scheduled 2015 Screening for malignant [facility] 00:00:00 neoplasm of cervix Medical C enter (procedure) [code = 851950717] Future Scheduled 2012 HEPATITIS C [facility]:00:00 [code = HEPATITIS C Medical Center SCREENING] Future Scheduled 2012 HEPATITIS C [facility]:00:00 [code = HEPATITIS C Medical Center SCREENING] Future Scheduled 2012 HEPATITIS C [facility] 00:00:00 [code = HEPATITIS C Medical Center SCREENING] Future Scheduled 2012 HEPATITIS C [facility] 00:00:00 [code = HEPATITIS C Medical Center SCREENING] Future Scheduled 2012 HEPATITIS C [facility] 00:00:00 [code = HEPATITIS C Medical Center SCREENING] Future Scheduled 2012 HEPATITIS C [facility] 00:00:00 [code = HEPATITIS C Medical Center SCREENING] Future Scheduled 2012 HEPATITIS C [facility] 00:00:00 [code = HEPATITIS C Medical Center SCREENING] Future Scheduled 2012 HEPATITIS C [facility] 00:00:00 [code = HEPATITIS C Medical Center SCREENING] Future Scheduled 2012 HEPATITIS C [facility] 00:00:00 [code = HEPATITIS C Medical Center SCREENING] Future Scheduled 2012 HEPATITIS C [facility] 00:00:00 [code = HEPATITIS C Medical Center SCREENING] Future Scheduled 2012 HEPATITIS C [facility] 00:00:00 [code = HEPATITIS C Medical Center SCREENING] Future Scheduled 2012 HEPATITIS C [facility] 00:00:00 [code = HEPATITIS C Medical Center SCREENING] Future Scheduled 2012 HEPATITIS C [facility] 00:00:00 [code = HEPATITIS C Medical Center SCREENING] Future Scheduled 2012 HEPATITIS C [facility] 00:00:00 [code = HEPATITIS C Medical Center SCREENING] Future Scheduled [address] [facility] 00:[facility]:00 virus screening Medical Cent er (procedure) [code = 332138358] Future Scheduled [address] [facility] 00:00:00 virus screening Medical Cent er (procedure) [code = 785167448] Future Scheduled [address] [facility] 00:00:00 virus screening Medical Cent er (procedure) [code = 996657641] Future Scheduled 1995-01-26 COVID-19 VACCINE (#1) [facility]:00 [code = COVID-19 VACCINE Med ical Center (#1)] Future Scheduled 1995-01-26 COVID-19 VACCINE (#1) [facility] 00:00:00 [code = COVID-19 VACCINE Med ical Center (#1)] Future Scheduled 1995-01-26 COVID-19 VACCINE (#1) [facility] 00:00:00 [code = COVID-19 VACCINE Med ical Center (#1)] Future Scheduled 1995-01-26 COVID-19 VACCINE (#1) [facility] 00:00:00 [code = COVID-19 VACCINE Med ical Center (#1)] Future Scheduled 1995-01-26 COVID-19 VACCINE (#1) [facility] 00:00:00 [code = COVID-19 VACCINE Med ical Center (#1)] Future Scheduled 1995-01-26 COVID-19 VACCINE (#1) [facility] 00:00:00 [code = COVID-19 VACCINE Med ical Center (#1)] Future Scheduled 1995-01-26 COVID-19 VACCINE (#1) [facility] 00:00:00 [code = COVID-19 VACCINE Med ical Center (#1)] Future Scheduled 1995-01-26 COVID-19 VACCINE (#1) [facility] 00:00:00 [code = COVID-19 VACCINE Med ical Center (#1)] Future Scheduled 1995-01-26 COVID-19 VACCINE (#1) [facility] 00:00:00 [code = COVID-19 VACCINE Med ical Center (#1)] Future Scheduled 1995-01-26 COVID-19 VACCINE (#1) [facility] 00:00:00 [code = COVID-19 VACCINE Med ical Center (#1)] Future Scheduled 1995-01-26 COVID-19 VACCINE (#1) [facility] 00:00:00 [code = COVID-19 VACCINE Med ical Center (#1)] Future Scheduled 1995-01-26 COVID-19 VACCINE (#1) [facility] 00:00:00 [code = COVID-19 VACCINE Med ical Center (#1)] Future Scheduled 1995-01-26 COVID-19 VACCINE (#1) [facility] 00:00:00 [code = COVID-19 VACCINE Med ical Center (#1)] Future Scheduled 1995-01-26 COVID-19 VACCINE (#1) [facility] 00:00:00 [code = COVID-19 VACCINE Med ical Center (#1)] Encounters Start End Encounter Admission Attending Care Care Encounter Source Date/Time Date/Time Type Type Clinicians Facility Department ID 2023-02-22 2023-02-22 Orders Doctor CDOY [id number] Univers 00:00:00 00:00:00 Only Unassigned, SASHA [id number] ity of [place] [facility] [id number] Rene as [id number] [facility] sue 009 Branch 2023-02-06 2023-02-06 Office Dev Rollins [facility] [id number] Univers 15:30:00 15:45:00 Visit [facility] [id number] it y of [place] 4.2.7.2.686 Andie johnston ABDALLA [phone] [facility] 196 Branch OFFICE BUILDING 2023-02-06 2023-02-06 Outpatient R DEV ROLLINS [facility] [id number] Univers 15:30:00 15:30:00 ity of [facility] 2023-01-30 2023-01-30 Transition LETICIA Foster [id number] Univers 00:00:00 00:00:00 of Care Katherine JULES [id number] i [place] 4.2.7.2.686 [place] [id number] [facility] 403 Branch 2023-01-24 2023-01-28 Hospital Dev Rollins [facility] 1.2.84 0.114 [id number] Univers 05:20:00 10:43:00 Encounter Jesse [facility] [id number] ity of [place] 4.2.7.2.686 [facility] [id number] [facility] 110 [address] ([facility]) 2023-01-24 2023-01-28 Inpatient R SAMIR [facility] [id number] Univers 05:20:00 10:43:00 ROSANGELA ity o f [facility] 2023-01-24 2023-01-24 Anesthesia Buffy Soriano 1.2.840 .8 [id number] Univers 07:25:00 17:56:00 Event Maria Esther Tony 11796.1.1 ity of 3.104.2.7 [place] .3.988973 Medica l .8 Branch 2023-01-24 2023-01-24 Surgery Dev Rollins 1.2.840.6 [id number] Univers 07:10:00 17:08:00 Esmer Dale [id number] ity of 3.104.2.7 [place] .3.615093 Medica l .8 Branch 2023-01-24 2023-01-24 Anesthesia Crutsinger, 1.2.840.1 [id number] Univers 15:36:01 15:36:01 Event Alhaji 52360.1.1 ity of 3.104.2.7 [place] .3.853636 Medica l .8 Branch 2023-01-24 2023-01-24 Patient Doctor [facility] [id number] Univers 00:00:00 00:00:00 Secure Msg Unassigned, HEALTH [id number] ity of [place] [id number] Andie ABDALLA [phone] [facility] 020 Branch ([facility]) 2023-01-24 2023-01-24 Travel 1.2.840.1 [id number] [id number] Univers 00:00:00 00:00:00 [id number] [id number] ity of 3.104.2.7 4.[place]7.3.698 [place] .[id number] 084.8 Medica l .8 Branch 2023-01-24 2023-01-24 Orders Doctor 1.2.840.3 [id number] Univers 00:00:00 00:00:00 Only Unassigned, 31417.1.1 ity of [place] 3.104.2.7 [place] .3.417212 Medica l .8 Branch 2023-01-19 2023-01-19 Pre-Anesth Call, [facility] 1.2.840.114 1 [id number] Univers 11:10:00 11:15:00 [facility]ia [facility] HEALTH 350.1.13.10 ity of Evaluation CLEAR 4.2.7.2.686 T mian ABDALLA [phone] [facility] [address] ([facility]) 2023-01-16 2023-01-16 Outpatient DEV PARKER [facility] [id number] Univers 16:30:00 16:30:00 ity of [facility] 2023-01-16 2023-01-16 Patient Doctor 1.2.840.2 [id number] Univers 00:00:00 00:00:00 Secure Msg Unassigned, 00258.1.1 ity of [place] 3.104.2.7 [place] .3.716190 Medica l .8 Branch 2023-01-13 2023-01-13 Patient Doctor 1.2.840.9 [id number] Univers 00:00:00 00:00:00 Secure Msg Unassigned, 46495.1.1 ity of [place] 3.104.2.7 [place] .3.546373 Medica l .8 Branch 2023-01-02 2023-01-02 Patient Doctor 1.2.840.5 [id number] Univers 00:00:00 00:00:00 Secure Msg Unassigned, 22740.1.1 ity of [place] 3.104.2.7 [place] .3.866834 Medica l .8 [place] 2022-11-09 2022-11-09 Patient Camacho, 1.2.840.1 [id number] Univers 00:00:00 00:00:00 Secure Msg Valerie 89556.1.1 i ty of 3.104.2.7 [place] .3.408082 Medica l .8 [place] 2022-11-07 2022-11-07 Office Dev Rollins 1.2.840.5 [id number] Univers 15:30:00 15:45:00 Visit Esmer Dale 33507.1.1 ity of 3.104.2.7 [place] .3.338134 Medica l .8 [place] 2022-11-07 2022-11-07 Outpatient R DEV ROLLINS [facility] 1043 [id number] Univers 15:30:00 15:30:00 ity of [facility] 2022-11-07 2022-11-07 Travel 1.2.840.1 1.2.685.027 [id number] Univers 00:00:00 00:00:00 58466.1.1 350.1.13.10 ity of 3.104.2.7 4.[place].7.3.698 [place] .3.544146 084.8 Medica l .8 Branch 2022-11-07 2022-11-07 Orders Doctor 1.2.840.8 [id number] Univers 00:00:00 00:00:00 Only Unassigned, 54833.1.1 ity of [place] 3.104.2.7 [place] .3.416506 Medica l .8 Branch 2022-10-20 2022-10-20 Orders Doctor ESCOBAR 1.2.840.114 [id number] Univers 00:00:00 00:00:00 Only Unassigned, SASHA 350.1.13.10 ity of [place] [facility] 4.2.7.2.686 Rene as [phone] [address] 2022-10-06 2022-10-06 Patient Doctor [facility] 1.2.840.114 [id number] Univers 00:00:00 00:00:00 Secure Msg Unassigned, HEALTH 350.1.13.10 ity of [place] [phone] [address] OFFICE [facility] 2022-10-05 2022-10-05 Telephone DARRIUS Sauer 1.2.840.114 [id number] Univers 00:00:00 00:00:00 [facility] HEALTH 350.1.13.10 [place] [phone] [address] OFFICE [facility] 2022-10-05 2022-10-05 Telephone Dev Rollins 1.2.840.114 [id number] Univers 00:00:00 00:00:00 [facility] HEALTH 350.1.13.10 [place] [phone] [address] OFFICE BUILDING 2022-10-04 2022-10-04 Telephone Dev Rollins 1.2.840.114 1 [id number] Univers 00:00:00 00:00:00 [facility] HEALTH 350.1.13.10 [place] [id number] [address] OFFICE BUILDING 2022-10-03 2022-10-03 Outpatient R DEV ROLLINS [facility] 1043 [id number] Univers 13:00:00 13:57:11 ity of [facility] 2022-10-03 2022-10-03 Office Dev Rollins [facility] 1.2.840.114 [id number] Univers 13:00:00 13:57:11 Visit [facility] 350.1.13.10 it y of [place] 4.2.7.2.686 Andie ABDALLA [phone] [address] OFFICE BUILDING 2022-09-01 2022-09-01 [facility] [id number] 07:07:25 23:59:[address] [facility] 2022-09-01 2022-09-01 Outpatient [facility] SLE [id number] SLE 07:07:25 23:59:00 [facility] 2022-09-01 2022-09-01 [facility] [id number] 07:07:25 23:59:[address] [facility] 2022-09-01 2022-09-01 Anesthesia Ghazala [facility] [id number] [facility] 16:00:00 16:00:00 Event [facility] 2022-09-01 2022-09-01 [facility] [id number] 07:00:00 13:29:[address] [facility] 2022-09-01 2022-09-01 Outpatient [facility] Surgery [id number] SLE 07:00:00 13:29:00 [facility] 2022-09-01 2022-09-01 [facility] [id number] 07:00:00 13:29:[address] [facility] 2022-09-01 2022-09-01 Surgery Мария [facility] [id number] 08:00:00 09:00:00 Surgeon [facility] 2022-09-01 2022-09-01 Surgery Мария, [facility] [id number] 08:00:00 09:00:00 Surgeon [facility] 2022-09-01 2022-09-01 Orders Rich [facility] [id number] 00:00:00 00:00:00 Only [facility] 2022-09-01 2022-09-01 Orders Rich [facility] [id number] 00:00:00 00:00:00 Only [facility] 2022-08-31 2022-08-31 Outpatient EL RICHARDS, SLE SLE [id number] [facility] 00:00:00 00:00:00 CECY 2022-08-31 2022-08-31 Travel [facility] [id number] [facility] 00:[facility] 00:00:00 [facility] 2022-08-31 2022-08-31 Travel [facility] [id number] [facility] 00:[facility] 00:00:00 [facility] 2022-08-26 2022-08-26 Outside [facility] [id number] 00:00:00 00:00:00 Orders [facility] 2022-08-26 2022-08-26 Outside [facility] [id number] 00:00:00 00:00:00 Orders [facility] Results Test Description Test Time Test Comments Results Result Comments Source [facility] 2023-01-24 22:20:12 Test Item Value Reference Range Interpretation Comme nts PH (test code = 2) 7.38 7.35-7.45 PCO2 (test code = 7687276530) 40 See_Comment [Automated message] The system which ge nerated this result transmit abbie reference range: 35 - 45 mmHg. The reference range was not used to interpret th is result as normal/abnormal . PO2 (test code = 5761544363) 312 See_Comment H [Automated message] The system which ge nerated this result transmit abbie reference range: 80 - 100 mmHg. The reference range was not used to interpret th is result as normal/abnormal . BE (test code = 8104414524) -2.0 See_Comment [Automated message] The system which ge nerated this result transmit abbie reference range: -3.0 - 3 .0 mEq/L. The reference range was not used to interpret th is result as normal/abnormal . HCO3 (test code = 8520912829) 24 See_Comment [Automated message] The system which ge nerated this result transmit abbie reference range: 22 - 26 mEq/L. The reference range was not used to interpret th is result as normal/abnormal . %O2HB (test code = 5578547736) 100.0 % 95.0-98.0 H NA (test code = 6261366044) 143 mmol/L 135-145 K+ (test code = 4083426447) 3.8 mmol/L 3.5-5.0 AC CA IONZ (test code = 4.90 mg/dL 4.50-5.30 0507958473) GLUCOSE (test code = 0348542964) 108 mg/dL 70-110 AC Hematocrit (test code = 34 See_Comment L [Automated message] The 8515857027) system which ge nerated this result transmit abbie reference range: 40 - 54 VOL %. The reference range was not used to interpret th is result as normal/abnormal . THB (test code = 2285999648) 11.6 g/dL 12.0-16.0 L AC TC02 (test code = 7649112312) 25 mmol/L See_Comment [Automated message] The system which ge nerated this result transmit abbie reference range: 23-27 mm ol/L. The reference range was not used to interpret th is result as normal/abnormal . Lab Interpretation (test code = Abnormal 82234-0) [facility] ACUTE CARE [id number] 22:20:12 Test Item Value Reference Range Interpretation Comments PH (test code = 2) 7.32 7.35-7.45 L PCO2 (test code = 48 See_Comment H [Automate d message] 2756282012) The system [employer] generated this result transmit abbie reference range : 35 - 45 mmHg. The reference range was not used to interpret this result as normal/abnormal . PO2 (test code = 319 See_Comment H [Automated message] 7472752395) The system whic h generated this result transmit abbie reference range : 80 - 100 mmHg. The reference range was not used to interpret this result as normal/abnormal . BE (test code = -1.0 See_Comment [Automated message] 3137726566) The system [employer] generated this result transmit abbie reference range : -3.0 - 3.0 mEq/ L. The reference r samuel was not used to interpret this result as normal/abnormal . HCO3 (test code = 25 See_Comment [Automate d message] 6615694276) The system [employer] generated this result transmit abbie reference range : 22 - 26 mEq/L. The reference range was not used to interpret this result as normal/abnormal . %O2HB (test code = 100.0 % 95.0-98.0 H 6565901812) NA (test code = 145 mmol/L 135-145 5083338591) K+ (test code = 3.9 mmol/L 3.5-5.0 7843370384) AC CA IONZ (test code = 5.20 mg/dL 4.50-5.30 4951212747) GLUCOSE (test code = 138 mg/dL 70-110 H 1608472058) AC Hematocrit (test 34 See_Comment L [Automa abbie message] code = 8061084947) The syste m which generated this result transmit abbie reference range : 40 - 54 VOL %. The reference range was not used to interpret this result as normal/abnormal . THB (test code = 11.6 g/dL 12.0-16.0 L 2743600704) AC TC02 (test code = 26 mmol/L See_Comment [Autom ated message] 2197891775) The system [employer] generated this result transmit abbie reference range : 23-27 mmol/L. T he reference range was not used to interpret this result as normal/abnormal . Lab Interpretation Abnormal (test code = 55268-9) [facility] ACUTE CARE [id number] 22:20:12 Test Item Value Reference Range Interpretation Comments PH (test code = 2) 7.32 7.35-7.45 L PCO2 (test code = 48 See_Comment H [Automate d message] 6721170481) The system [employer] generated this result transmit abbie reference range : 35 - 45 mmHg. The reference range was not used to interpret this result as normal/abnormal . PO2 (test code = 319 See_Comment H [Automated message] 0227455836) The system [employer] generated this result transmit abbie reference range : 80 - 100 mmHg. The reference range was not used to interpret this result as normal/abnormal . BE (test code = -1.0 See_Comment [Automated message] 6866578617) The system [employer] generated this result transmit abbie reference range : -3.0 - 3.0 mEq/ L. The reference r samuel was not used to interpret this result as normal/abnormal . HCO3 (test code = 25 See_Comment [Automate d message] 4760222828) The system [employer] generated this result transmit abbie reference range : 22 - 26 mEq/L. The reference range was not used to interpret this result as normal/abnormal . %O2HB (test code = 100.0 % 95.0-98.0 H 9241191963) NA (test code = 145 mmol/L 135-145 6206481821) K+ (test code = 3.9 mmol/L 3.5-5.0 5448124120) AC CA IONZ (test code = 5.20 mg/dL 4.50-5.30 3216658640) GLUCOSE (test code = 138 mg/dL 70-110 H 4910841597) AC Hematocrit (test 34 See_Comment L [Automa abbie message] code = 6091881407) The syste m which generated this result transmit abbie reference range : 40 - 54 VOL %. The reference range was not used to interpret this result as normal/abnormal . THB (test code = 11.6 g/dL 12.0-16.0 L 3103154677) AC TC02 (test code = 26 mmol/L See_Comment [Autom ated message] 9176156799) The system [employer] generated this result transmit abbie reference range : 23-27 mmol/L. T he reference range was not used to interpret this result as normal/abnormal . Lab Interpretation Abnormal (test code = 08028-7) [facility] ACUTE CARE [id number] 22:20:12 Test Item Value Reference Range Interpretation Comments PH (test code = 2) 7.38 7.35-7.45 PCO2 (test code = 40 See_Comment [Automate d message] 2993412210) The system [employer] generated this result transmit abbie reference range : 35 - 45 mmHg. The reference range was not used to interpret this result as normal/abnormal . PO2 (test code = 312 See_Comment H [Automated message] 1132741503) The system [employer] generated this result transmit abbie reference range : 80 - 100 mmHg. The reference range was not used to interpret this result as normal/abnormal . BE (test code = -2.0 See_Comment [Automated message] 8399164164) The system [employer] generated this result transmit abbie reference range : -3.0 - 3.0 mEq/ L. The reference r samuel was not used to interpret this result as normal/abnormal . HCO3 (test code = 24 See_Comment [Automate d message] 0156056872) The system [employer] generated this result transmit abbie reference range : 22 - 26 mEq/L. The reference range was not used to interpret this result as normal/abnormal . %O2HB (test code = 100.0 % 95.0-98.0 H 9114291453) NA (test code = 143 mmol/L 135-145 2622855360) K+ (test code = 3.8 mmol/L 3.5-5.0 1426811571) AC CA IONZ (test code = 4.90 mg/dL 4.50-5.30 8197324677) GLUCOSE (test code = 108 mg/dL 70-110 2038699927) AC Hematocrit (test 34 See_Comment L [Automa abbie message] code = 7217581835) The syste m which generated this result transmit abbie reference range : 40 - 54 VOL %. The reference range was not used to interpret this result as normal/abnormal . THB (test code = 11.6 g/dL 12.0-16.0 L 2459608398) AC TC02 (test code = 25 mmol/L See_Comment [Autom ated message] 4838319388) The system [employer] generated this result transmit abbie reference range : 23-27 mmol/L. T he reference range was not used to interpret this result as normal/abnormal . Lab Interpretation Abnormal (test code = 22905-7) [facility] ACUTE CARE [id number] 22:20:12 Test Item Value Reference Range Interpretation Comments PH (test code = 2) 7.32 7.35-7.45 L PCO2 (test code = 48 See_Comment H [Automate d message] 8173034445) The system [employer] generated this result transmit abbie reference range : 35 - 45 mmHg. The reference range was not used to interpret this result as normal/abnormal . PO2 (test code = 319 See_Comment H [Automated message] 7476257071) The system [employer] generated this result transmit abbie reference range : 80 - 100 mmHg. The reference range was not used to interpret this result as normal/abnormal . BE (test code = -1.0 See_Comment [Automated message] 5473035402) The system [employer] generated this result transmit abbie reference range : -3.0 - 3.0 mEq/ L. The reference r samuel was not used to interpret this result as normal/abnormal . HCO3 (test code = 25 See_Comment [Automate d message] 0437019452) The system [employer] generated this result transmit abbie reference range : 22 - 26 mEq/L. The reference range was not used to interpret this result as normal/abnormal . %O2HB (test code = 100.0 % 95.0-98.0 H 3147905843) NA (test code = 145 mmol/L 135-145 2138485562) K+ (test code = 3.9 mmol/L 3.5-5.0 4582775432) AC CA IONZ (test code = 5.20 mg/dL 4.50-5.30 1330115422) GLUCOSE (test code = 138 mg/dL 70-110 H 5244424432) AC Hematocrit (test 34 See_Comment L [Automa abbie message] code = 2610050566) The syste m which generated this result transmit abbie reference range : 40 - 54 VOL %. The reference range was not used to interpret this result as normal/abnormal . THB (test code = 11.6 g/dL 12.0-16.0 L 0171367409) AC TC02 (test code = 26 mmol/L See_Comment [Autom ated message] 8020074415) The system [employer] generated this result transmit abbie reference range : 23-27 mmol/L. T he reference range was not used to interpret this result as normal/abnormal . Lab Interpretation Abnormal (test code = 52831-8) [facility] Confirmation (Lab Only)2023-01-24 12:34:00 Test Item Value Reference Range Interpretation Comments ABO & RH (test code = 20) O Positive [facility] Confirmation (Lab Only)2023-01-24 12:34:00 Test Item Value Reference Range Interpretation Comments ABO & RH (test code = 20) O Positive [facility] Confirmation (Lab Only)2023-01-24 12:34:00 Test Item Value Reference Range Interpretation Comments ABO & RH (test code = 20) O Positive [facility] METABOLIC PANEL (NA, K, CL, CO2, GLUCOSE, BUN, CREATININE, CA)2023-01-24 11:51:51 Test Item Value Reference Range Interpretation Comments NA (test code = 141 mmol/L 135-145 6207884652) K (test code = 4.0 mmol/L 3.5-5.0 7420015583) CL (test code = 108 mmol/L 98-108 7566249234) CO2 TOTAL (test code 26 mmol/L 23-31 = 2202648698) AGAP (test code = 7 2-16 0709502365) BUN (test code = 22 mg/dL 7-23 9338594359) GLUCOSE (test code = 105 mg/dL 70-110 9787507964) CREATININE (test code 0.71 mg/dL 0.50-1.04 = 2501259932) CALCIUM (test code = 8.9 mg/dL 8.6-10.6 1575234909) eGFR (test code = 98.0 mL/min/1.73m2 9680687309) VISH (test code = VISH) Association of Glomerular Filtration Rate (GFR) and Staging of Kidney Disease* + + +- +| GFR (mL/min/1.73 m2) ?| With Kidney Damage ?| ?Without Kidney Damage+ ------+ ----+ ------+| ?>90 ?| ?Stage one ?| ? Normal ?+ -+ + -+| ?60-89 ?| ?Stage two ?| ? Decreased GFR ? + + +- +| ?30-59 ?| ?Stage three ?| ? Stage three ? + + +- +| ?15-29 ?| ?Stage four ? | ? Stage four ?+ -+ + -+| ?<15 (or dialysis) ? ?| ?Stage five ? | ? Stage five ?+ -+ + -+ *Each stage assumes the associated GFR level has been in effect for at least three months. ?Stages 1 to 5, with or without kidney disease, indicate chronic kidney disease. Notes: Determination of stages one and two (with eGFR >59mL/min/1.73 m2) requires estimation of kidney damage for at least three months as defined by structural or functional abnormalities of the kidney, manifested by either:Pathological abnormalities or Markers of kidney damage (including abnormalities in the composition of the blood or urine or abnormalities in imaging tests). [facility] METABOLIC PANEL (NA, K, CL, CO2, GLUCOSE, BUN, CREATININE, CA)2023-01-24 11:51:51 Test Item Value Reference Range Interpretation Comments NA (test code = 141 mmol/L 135-145 6090307953) K (test code = 4.0 mmol/L 3.5-5.0 4421603611) CL (test code = 108 mmol/L 98-108 5258910717) CO2 TOTAL (test code 26 mmol/L 23-31 = 0527100872) AGAP (test code = 7 2-16 4889683891) BUN (test code = 22 mg/dL 7-23 1140787380) GLUCOSE (test code = 105 mg/dL 70-110 7725984367) CREATININE (test code 0.71 mg/dL 0.50-1.04 = 7900553970) CALCIUM (test code = 8.9 mg/dL 8.6-10.6 6924889750) eGFR (test code = 98.0 mL/min/1.73m2 0636177863) VISH (test code = VISH) Association of Glomerular Filtration Rate (GFR) and Staging of Kidney Disease* + + +- +| GFR (mL/min/1.73 m2) ?| With Kidney Damage ?| ?Without Kidney Damage+ ------+ ----+ ------+| ?>90 ?| ?Stage one ?| ? Normal ?+ -+ + -+| ?60-89 ?| ?Stage two ?| ? Decreased GFR ? + + +- +| ?30-59 ?| ?Stage three ?| ? Stage three ? + + +- +| ?15-29 ?| ?Stage four ? | ? Stage four ?+ -+ + -+| ?<15 (or dialysis) ? ?| ?Stage five ? | ? Stage five ?+ -+ + -+ *Each stage assumes the associated GFR level has been in effect for at least three months. ?Stages 1 to 5, with or without kidney disease, indicate chronic kidney disease. Notes: Determination of stages one and two (with eGFR >59mL/min/1.73 m2) requires estimation of kidney damage for at least three months as defined by structural or functional abnormalities of the kidney, manifested by either:Pathological abnormalities or Markers of kidney damage (including abnormalities in the composition of the blood or urine or abnormalities in imaging tests). [facility] WITH [id number] 11:34:32 Test Item Value Reference Range Interpretation Comments WBC (test code = 5.54 See_Comment [Automated 4319-2) message] The sy stem which generated this result transmitted reference range : 4.30 - 11.10 10*3/?L. The reference range was not used to interpret this result as normal/abnormal . RBC (test code = 4.33 See_Comment [Automated 906-8) message] The sy stem which generated this result transmitted reference range : 3.93 - 5.25 10*6/?L. The reference range was not used to interpret this result as normal/abnormal . HGB (test code = 13.2 g/dL 11.6-15.0 718-7) HCT (test code = 39.9 % 35.7-45.2 4544-3) MCV (test code = 92.1 fL 80.6-95.5 787-2) MCH (test code = 30.5 pg 25.9-32.8 785-6) MCHC (test code = 33.1 g/dL 31.6-35.1 786-4) RDW-SD (test code = 40.6 fL 39.0-49.9 08696-0) RDW-CV (test code = 11.9 % 12.0-15.5 L 788-0) PLT (test code = 290 See_Comment [Automated 777-3) message] The sy stem which generated this result transmitted reference range : 166 - 358 10*3/ ?L. The reference r samuel was not used to interpret this result as normal/abnormal . MPV (test code = 11.4 fL 9.5-12.9 91761-9) NRBC/100 WBC (test 0.0 See_Comment [Automat ed code = 2489290297) message] The system which generated this result transmitted reference range : 0.0 - 10.0 /100 WBCs. The refer ence range was not u sed to interpret th is result as normal/abnormal . NRBC x10^3 (test code See_Comment [Auto mated = 9313492341) message] The s ystem which generated this result transmitted reference range : 10*3/?L. The reference range was not used to interpret this result as normal/abnormal . GRAN MAT (NEUT) % 59.4 % (test code = 770-8) IMM GRAN % (test code 0.20 % = 8087864827) LYMPH % (test code = 21.5 % 736-9) MONO % (test code = 9.0 % 5905-5) EOS % (test code = 9.2 % 713-8) BASO % (test code = 0.7 % 706-2) GRAN MAT x10^3(ANC) 3.29 10*3/uL 1.88-7.09 (test code = 0609820027) IMM GRAN x10^3 (test 0.00-0.06 code = 2243560091) LYMPH x10^3 (test code 1.19 10*3/uL 1.32-3.29 L = 731-0) MONO x10^3 (test code 0.50 10*3/uL 0.33-0.92 = 742-7) EOS x10^3 (test code = 0.51 10*3/uL 0.03-0.39 H 711-2) BASO x10^3 (test code 0.04 10*3/uL 0.01-0.07 = 704-7) Lab Interpretation Abnormal (test code = 02586-8) [facility] WITH [id number] 11:34:32 Test Item Value Reference Range Interpretation Comments WBC (test code = 5.54 See_Comment [Automated 6690-2) message] The sy stem which generated this result transmitted reference range : 4.30 - 11.10 10*3/?L. The reference range was not used to interpret this result as normal/abnormal . RBC (test code = 4.33 See_Comment [Automated 789-8) message] The sy stem which generated this result transmitted reference range : 3.93 - 5.25 10*6/?L. The reference range was not used to interpret this result as normal/abnormal . HGB (test code = 13.2 g/dL 11.6-15.0 718-7) HCT (test code = 39.9 % 35.7-45.2 4544-3) MCV (test code = 92.1 fL 80.6-95.5 787-2) MCH (test code = 30.5 pg 25.9-32.8 785-6) MCHC (test code = 33.1 g/dL 31.6-35.1 786-4) RDW-SD (test code = 40.6 fL 39.0-49.9 39915-6) RDW-CV (test code = 11.9 % 12.0-15.5 L 788-0) PLT (test code = 290 See_Comment [Automated 777-3) message] The sy stem which generated this result transmitted reference range : 166 - 358 10*3/ ?L. The reference r samuel was not used to interpret this result as normal/abnormal . MPV (test code = 11.4 fL 9.5-12.9 53648-8) NRBC/100 WBC (test 0.0 See_Comment [Automat ed code = 4765750401) message] The system which generated this result transmitted reference range : 0.0 - 10.0 /100 WBCs. The refer ence range was not u sed to interpret th is result as normal/abnormal . NRBC x10^3 (test code See_Comment [Auto mated = 2950494090) message] The s ystem which generated this result transmitted reference range : 10*3/?L. The reference range was not used to interpret this result as normal/abnormal . GRAN MAT (NEUT) % 59.4 % (test code = 770-8) IMM GRAN % (test code 0.20 % = 7695624760) LYMPH % (test code = 21.5 % 736-9) MONO % (test code = 9.0 % 5905-5) EOS % (test code = 9.2 % 713-8) BASO % (test code = 0.7 % 706-2) GRAN MAT x10^3(ANC) 3.29 10*3/uL 1.88-7.09 (test code = 7801241168) IMM GRAN x10^3 (test 0.00-0.06 code = 0479823756) LYMPH x10^3 (test code 1.19 10*3/uL 1.32-3.29 L = 731-0) MONO x10^3 (test code 0.50 10*3/uL 0.33-0.92 = 742-7) EOS x10^3 (test code = 0.51 10*3/uL 0.03-0.39 H 711-2) BASO x10^3 (test code 0.04 10*3/uL 0.01-0.07 = 704-7) Lab Interpretation Abnormal (test code = 78100-4) [facility] [facility] [id number] 11:33:00 Test Item Value Reference Range Interpretation Comments POCT PREG (test code = 1605) Negative On board controls acceptable with C Yes Line (test code = 3574) POCT PREG LOT # (test code = 3575) POCT PREG TEST DATE (test code = 3576) [facility] [id number] 11:33:00 Test Item Value Reference Range Interpretation Comments POCT PREG (test code = 1605) Negative On board controls acceptable with C Yes Line (test code = 3574) POCT PREG LOT # (test code = 3575) POCT PREG TEST DATE (test code = 3576) [facility] [id number] 11:33:00 Test Item Value Reference Range Interpretation Comments POCT PREG (test code = 1605) Negative On board controls acceptable with C Yes Line (test code = 3574) POCT PREG LOT # (test code = 3575) POCT PREG TEST DATE (test code = 3576) [facility] [id number] 11:30:00 Test Item Value Reference Range Interpretation Comments ABO & RH (test code = 20) O Positive IAT (test code = 1185) Negative [facility] [id number] 11:30:00 Test Item Value Reference Range Interpretation Comments ABO & RH (test code = 20) O Positive IAT (test code = 1185) Negative [facility] [id number] 11:30:00 Test Item Value Reference Range Interpretation Comments ABO & RH (test code = 20) O Positive IAT (test code = 1185) Negative [facility], [facility]IOGRAM, [id number] 10:26:00WITH EXTERNALSReason for Exam:->I67.1 [facility]ENO : 1995 Sex: FFINAL REPORT DATE OF PROCEDURE: 09/01/2022 1:30 PM SURGEON: Anitha Wang M.D. RESERVATIONS SPECIALIST: RICKY Timmons MD PRE OPERATIVE DIAGNOSIS: Coiled left MCA aneurysm POST OPERATIVE DIAGNOSIS: Coiled left MCA aneurysm PROCEDURE: Diagnostic cerebral angiogram ANESTHESIA: Conscious sedation ESTIMATED BLOOD LOSS: < 10 cc COMPLICATIONS: None Vessels catheterized:Right radial arteryRi ght vertebral arteryRight common carotid arteryRight internal carotid arteryLeft internal carotid artery Devices Employed:5F slender trfokp4L Salomon 2 catheterTerumo Charlotte WireTR/Prelude Band INDICATIONS: The patient is a 26-year-old woman with history of cerebral aneurysm diabetes, high cholesterol, migraines. She presented with subarachnoid hemorrhage in 2019 from a ruptured left MCA aneurysm thatwas coiled. She was noted to have possible small residual on previous imaging. She presents today for follow-up angiogram. CONSENT: The risks and benefits of the procedure were discussed with the patient and his/her family. These include but are not limited to infection, bleeding, stroke, , vessel injury, groin/wrist hematoma, retroperitoneal hematoma and need for additional treatment and/or therapy. Their questions were answered. They understood and wished to proceed. PROCEDURE: The right radial artery was identified using ultrasound.A time-out was performed. Both groins and wrists were prepped in the usual sterile fashion using Chloraprep, and sterilely draped. The skin over the right distal radial artery was anesthetized with 1% lidocaine. A single wall puncture of the right radial arterywas performed using a micropuncture set and dilator and a 5-Fr short sheath was inserted into the right radial artery. A medication cocktail consisting of heparin, nitroglycerin, and verapamil was theninfused through the sheath. Using coaxial technique, a 5F salomon catheter was advanced through the right subclavian artery to the relevant vessels, back-bled, and flushed in the usual fashion. Using coaxial technique, and with the aid of the roadmapping, digital fluoroscopy, and careful guidewire manipulation the above arteries were catheterized. Upon each successive selective catheterization, digital subtraction angiography using the appropriate rate and volume of contrast in multiple projections was performed. 3-dimensional angiogram was performed and processed on an independent workstation. These images were reviewed by Dr. Wang separately. The catheter was removed. The sheath was removed and hemostasis was achieved with a prelude band closure device. The patient tolerated the procedure well and was taken to day surgery in stable condition. FINDINGS: RIGHT RADIAL ARTERY (DSA - PA - ELBOW)The visualized brachial, radial, and ulnar arteries and their branches are widely patent without stenosis. RIGHT COMMON CAROTID ARTERY (DSA - PA, LATERAL - CERVICAL) The catheter was used to select theright common carotid artery. DSA in the AP and lateral views of the cervical region performed. The distal common, proximal internal, and imaged external carotid arteries are normal in caliber and contour. The carotid bifurcation is widely patent. RIGHT COMMON CAROTID ARTERY (DSA - PA, LATERAL - HEAD) The catheter was advanced into the right common carotid artery. DSA in the AP, lateral, and oblique views of the intracranial and extracranial circulation was performed. The intracranial segments of theright internal carotid artery, the middle cerebral artery, and the anterior cerebral artery and the branch vessels are normal in caliber and contour. The anterior and posterior communicating arteries are patent and fill briefly. No evidence of aneurysm, vascular malformation, or arteriovenous shunting. Dynamic imaging demonstrates a normal capillary phase. The intracranial venous structures opacify appropriately and appear patent. The visualized branches of the right external carotid artery appear normal in contour and caliber. No evidence of aneurysm, vascular malformation or arteriovenous shunting. RIGHT VERTEBRAL ARTERY (DSA - PA, LATERAL - HEAD) The catheter was advanced into the right vertebral artery. DSA in the AP and lateral views of the intracranial circulation was performed. The distal vertebral artery and the basilar artery are normal in caliber and contour. The posterior inferior cerebellar artery is normal in caliber and contour. Flash filling of the distal left vertebral artery demonstrates patency of the left distal V4 segment and the left posterior inferior cerebellar artery, which has a distal origin. The right AICA supplies the typical PICA territory on the right. Both superior cerebellar arteries are duplicated. The posterior cerebral arteries and the branch vessels are normal in caliber and contour. Both posterior communicating arteries fill. No evidence of aneurysm, vascular malformation, or arteriovenous shunting. Dynamic imaging guidance with normal capillary phase. The intracranial venous structures opacify appropriately and appear patent. LEFT COMMON CAROTID ARTERY (DSA - PA, LATERAL - CERVICAL) The catheter was used to select the left common carotid artery. DSA in the AP and lateral views of the cervical region was performed. The distal common, proximal internal, and imaged external carotid arteries are normal in caliber and contour. The carotid bifurcation iswidely patent. LEFT INTERNAL CAROTID ARTERY (DSA - PA, LATERAL - HEAD) The catheter was advanced into the left internal carotid artery. DSA in the AP, lateral, and oblique views of the intracranial circulation was performed. The intracranial segments of the left internal carotid artery, the middle cerebral artery, and the anterior cerebral artery and the branch vessels are normal in caliber and contour. The anterior and posterior communicating arteries are patent. 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 Amidst the coil pack there is a small amount of contrast filling the neck of the aneurysm. No other evidence of a neurysm, vascular malformation, or arteriovenous shunting. Dynamic imaging demonstrates a normal capillary phase. The intracranial venous structures opacify appropriately and appear patent. SUPERVISION: Dr. Wang was present for the entirety of the procedure. IMPRESSION: 1. 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 Amidst the coil pack there is a small amount of contrast filling the residual neck of the aneurysm. This appears approximately stable compared to 3D images of 2019, though due to lack of clear imaging angles in 2020 it is not clear if contrast is filling the internal aneurysm to the same extent. 2. No other aneurysms or vascular malformations. No immediate technical or clinical complications. Signed: Anitha Wang MDReport Verified Date/Time: 09/06/2022 10:26:38 Reading Location: [place] [address] Neuro Angio Reading Room Basic Metabolic [id number] 08:26:47 Test Item Value Reference Range Interpretation Comments Sodium (test code = 140 meq/L 883-168 9377-2) Potassium (test code 4.2 meq/L 3.5-5.1 = 2823-3) Chloride (test code = 108 meq/L 98-107 H 5-0) CO2 (test code = 24 meq/L 22-29 8-9) BUN (test code = 18 mg/dL 7-21 3094-0) Creatinine (test code 0.79 mg/dL 0.57-1.25 = 2160-0) Glucose (test code = 87 mg/dL 70-105 2345-7) Calcium (test code = 9.3 mg/dL 8.4-10.2 56401-0) EGFR (test code = 104 mL/min/1[place] [address]-9) m eGFR values Sta ge Description Res ult G1 Normal or hi gh >=90 G2 Mildly decreased 60-89 G3a Mildly to moder ately 45-59 G3b Moder ately to severely 30- 44 G4 Severly decreas ed 15-29 G5 Kidney failure <15Repo rted eGFR is based o n the CKD-EPI 2021 equation that d oes not use a race coefficient Estimated GFR i s not as accurate as Creatinine Lucinda keron in predicting glomerular filtration rate . Estimated GFR i s not applicable for dialysis patien ts VISH (test code = VISH) Community Fundraiser ID - JEREMY Lab Interpretation Abnormal (test code = 47716-5) [facility] Metabolic [id number] 08:26:47 Test Item Value Reference Range Interpretation Comments Sodium (test code = 140 meq/L 390-283 7287-2) Potassium (test code 4.2 meq/L 3.5-5.1 = 2823-3) Chloride (test code = 108 meq/L 98-107 H 2075-0) CO2 (test code = 24 meq/L -2027-9) BUN (test code = 18 mg/dL 7-21 3094-0) Creatinine (test code 0.79 mg/dL 0.57-1.25 = 2160-0) Glucose (test code = 87 mg/dL 70-105 2345-7) Calcium (test code = 9.3 mg/dL 8.4-10.2 68479-3) EGFR (test code = 104 mL/min/1[place] [address]-5) m eGFR values Sta ge Description Res ult G1 Normal or hi gh >=90 G2 Mildly decreased 60-89 G3a Mildly to moder ately 45-59 G3b Moder ately to severely 30- 44 G4 Severly decreas ed 15-29 G5 Kidne y failure <15Repo rted eGFR is based o n the CKD-EPI 2021 equation that d oes not use a race coefficient Estimated GFR i s not as accurate as Creatinine Lucinda keron in predicting glomerular filtration rate . Estimated GFR i s not applicable for dialysis patien ts VISH (test code = VISH) Community Fundraiser ID - JEREMY Lab Interpretation Abnormal (test code = 94295-0) [facility] Metabolic [id number] 08:26:47 Test Item Value Reference Range Interpretation Comments Sodium (test code = 140 meq/L 520-869 5174-2) Potassium (test code 4.2 meq/L 3.5-5.1 = 2823-3) Chloride (test code = 108 meq/L 98-107 H 2075-0) CO2 (test code = 24 meq/L 2028-05) BUN (test code = 18 mg/dL 04-14-0) Creatinine (test code 0.79 mg/dL 0.57-1.25 = 2160-0) Glucose (test code = 87 mg/dL 70-105 2345-7) Calcium (test code = 9.3 mg/dL 8.4-10.2 95993-6) EGFR (test code = 104 mL/min/[place] [address]-3) m eGFR values Sta ge Description Res ult G1 Normal or hi gh >=90 G2 Mildly decreased 60-89 G3a Mildly to moder ately 45-59 G3b Moder ately to severely 30- 44 G4 Severly decreas ed 15-29 G5 Kidney failure <15Rep orted eGFR is based o n the CKD-EPI 2020 equation that d oes not use a race coefficient Estimated GFR i s not as accurate as Creatinine Lucinda keron in predicting glomerular filtration rate . Estimated GFR i s not applicable for dialysis patien ts VISH (test code = VISH) Community Fundraiser ID - JEREMY Lab Interpretation Abnormal (test code = 34510-6) [facility] [id number] 08:26:47 Test Item Value Reference Range Interpretation Comments Sodium (test code = 140 meq/L 267-289 5547-2) Potassium (test code 4.2 meq/L 3.5-5.1 = 2823-3) Chloride (test code = 108 meq/L 98-107 H ) CO2 (test code = 24 meq/L 2028-05) BUN (test code = 18 mg/dL 04-14-0) Creatinine (test code 0.79 mg/dL 0.57-1.25 = 2160-0) Glucose (test code = 87 mg/dL 70-105 2345-7) Calcium (test code = 9.3 mg/dL 8.4-10.2 22973-7) EGFR (test code = 104 mL/min/[place] [address]-4) m eGFR values Sta ge Description Res ult G1 Normal or hi gh >=90 G2 Mildly decreased 60-89 G3a Mildly to moder ately 45-59 G3b Moder ately to severely 30- 44 G4 Severly decreas ed 15-29 G5 Kidney failure <15Repo rted eGFR is based o n the CKD-EPI 2021 equation that d oes not use a race coefficient Estimated GFR i s not as accurate as Creatinine Lucinda keron in predicting glomerular filtration rate . Estimated GFR i s not applicable for dialysis patien ts VISH (test code = VISH) Community Fundraiser ID - JEREMY Lab Interpretation Abnormal (test code = 85404-4) [facility] Metabolic [id number] 08:26:47 Test Item Value Reference Range Interpretation Comments Sodium (test code = 140 meq/L 247-693 3739-2) Potassium (test code 4.2 meq/L 3.5-5.1 = 2823-3) Chloride (test code = 108 meq/L 98-107 H 2075-0) CO2 (test code = 24 meq/L 22-29 8-9) BUN (test code = 18 mg/dL 7-21 3094-0) Creatinine (test code 0.79 mg/dL 0.57-1.25 = 2160-0) Glucose (test code = 87 mg/dL 70-105 2345-7) Calcium (test code = 9.3 mg/dL 8.4-10.2 81314-0) EGFR (test code = 104 mL/min/1[place] [address]-2) m eGFR values Sta ge Description Res ult G1 Normal or hi gh >=90 G2 Mildly decreased 60-89 G3a Mildly to moder ately 45-59 G3b Moder ately to severely 30- 44 G4 Severly decreas ed 15-29 G5 Kidney failure <15Repo rted eGFR is based o n the CKD-EPI 2021 equation that d oes not use a race coefficient Estimated GFR i s not as accurate as Creatinine Lucinda keron in predicting glomerular filtration rate . Estimated GFR i s not applicable for dialysis patien ts VISH (test code = VISH) Community Fundraiser ID - JEREMY Lab Interpretation Abnormal (test code = 72098-2) [facility] Metabolic [id number] 08:26:47 Test Item Value Reference Range Interpretation Comments Sodium (test code = 140 meq/L 154-041 3223-2) Potassium (test code 4.2 meq/L 3.5-5.1 = 2823-3) Chloride (test code = 108 meq/L 98-107 H 0) CO2 (test code = 24 meq/L 2028-05) BUN (test code = 18 mg/dL 04-14 3094-0) Creatinine (test code 0.79 mg/dL 0.57-1.25 = 2160-0) Glucose (test code = 87 mg/dL 70-105 2345-7) Calcium (test code = 9.3 mg/dL 8.4-10.2 92636-2) EGFR (test code = 104 mL/min/1[place] [address]-2) m eGFR values Sta ge Description Res ult G1 Normal or hi gh >=90 G2 Mildly decreased 60-89 G3a Mildly to moder ately 45-59 G3b Moder ately to severely 30- 44 G4 Severly decreas ed 15-29 G5 Kidney failure <15Repo rted eGFR is based o n the CKD-EPI 2020 equation that d oes not use a race coefficient Estimated GFR i s not as accurate as Creatinine Lucinda keron in predicting glomerular filtration rate . Estimated GFR i s not applicable for dialysis patien ts VISH (test code = VISH) Community Fundraiser ID - JEREMY Lab Interpretation Abnormal (test code = 50910-1) [facility] [id number] 08:26:47 Test Item Value Reference Range Interpretation Comments Sodium (test code = 140 meq/L 641-132 1969-2) Potassium (test code 4.2 meq/L 3.5-5.1 = 2823-3) Chloride (test code = 108 meq/L 98-107 H 0) CO2 (test code = 24 meq/L 2028-05) BUN (test code = 18 mg/dL 04-14 3094-0) Creatinine (test code 0.79 mg/dL 0.57-1.25 = 2160-0) Glucose (test code = 87 mg/dL 70-105 2345-7) Calcium (test code = 9.3 mg/dL 8.4-10.2 54160-6) EGFR (test code = 104 mL/min/1[place] [address]-9) m eGFR values Sta ge Description Res ult G1 Normal or hi gh >=90 G2 Mildly decreased 60-89 G3a Mildly to moder ately 45-59 G3b Moder ately to severely 30 -44 G4 Severly decr eased 15-29 G5 Kidney failure <15Repo rted eGFR is based o n the CKD-EPI 2021 equation that d oes not use a race coefficient Estimated GFR i s not as accurate as Creatinine Lucinda keron in predicting glomerular filtration rate . Estimated GFR i s not applicable for dialysis patien ts VISH (test code = VISH) Community Fundraiser ID - JEREMY Lab Interpretation Abnormal (test code = 96340-1) [facility] Metabolic [id number] 08:26:47 Test Item Value Reference Range Interpretation Comments Sodium (test code = 140 meq/L 982-647 3202-2) Potassium (test code 4.2 meq/L 3.5-5.1 = 2823-3) Chloride (test code = 108 meq/L 98-107 H 2075-0) CO2 (test code = 24 meq/L -8-9) BUN (test code = 18 mg/dL 7-21 3094-0) Creatinine (test code 0.79 mg/dL 0.57-1.25 = 2160-0) Glucose (test code = 87 mg/dL 70-105 2345-7) Calcium (test code = 9.3 mg/dL 8.4-10.2 60004-7) EGFR (test code = 104 mL/min/1[place] [address]-0) m eGFR values Sta ge Description Res ult G1 Normal or hi gh >=90 G2 Mildly decreased 60-89 G3a Mildly to moder ately 45-59 G3b Moder ately to severely 30- 44 G4 Severly decreas ed 15-29 G5 Kidney failure <15Repo rted eGFR is based o n the CKD-EPI 2021 equation that d oes not use a race coefficient Estimated GFR i s not as accurate as Creatinine Lucinda keron in predicting glomerular filtration rate . Estimated GFR i s not applicable for dialysis patien ts VISH (test code = VISH) Community Fundraiser ID - JEREMY Lab Interpretation Abnormal (test code = 12804-5) [facility] Metabolic [id number] 08:26:47 Test Item Value Reference Range Interpretation Comments Sodium (test code = 140 meq/L 850-185 6520-2) Potassium (test code 4.2 meq/L 3.5-5.1 = 2823-3) Chloride (test code = 108 meq/L 98-107 H 2074-0) CO2 (test code = 24 meq/L 2028-05) BUN (test code = 18 mg/dL 04-14 3094-0) Creatinine (test code 0.79 mg/dL 0.57-1.25 = 2160-0) Glucose (test code = 87 mg/dL 70-105 2345-7) Calcium (test code = 9.3 mg/dL 8.4-10.2 74044-6) EGFR (test code = 104 mL/min/1.[place] [address]-7) m eGFR values Sta ge Description Res ult G1 Normal or hi gh >=90 G2 Mildly decreased 60-89 G3a Mildly to moder ately 45-59 G3b Moder ately to severely 30- 44 G4 Severly decreas ed 15-29 G5 Kidne y failure <15Repo rted eGFR is based o n the CKD-EPI 2020 equation that d oes not use a race coefficient Estimated GFR i s not as accurate as Creatinine Lucinda cabrales in predicting glomerular filtration rate . Estimated GFR i s not applicable for dialysis patien ts VISH (test code = VISH) Community Fundraiser ID - JEREMY Lab Interpretation Abnormal (test code = 66112-2) [facility] Metabolic [id number] 08:26:47 Test Item Value Reference Range Interpretation Comments Sodium (test code = 140 meq/L 484-260 3227-2) Potassium (test code 4.2 meq/L 3.5-5.1 = 2823-3) Chloride (test code = 108 meq/L 98-107 H 2074-0) CO2 (test code = 24 meq/L 2028-05) BUN (test code = 18 mg/dL 04-14 3094-0) Creatinine (test code 0.79 mg/dL 0.57-1.25 = 2160-0) Glucose (test code = 87 mg/dL 70-105 2345-7) Calcium (test code = 9.3 mg/dL 8.4-10.2 96380-4) EGFR (test code = 104 mL/min/1[place] [address]-9) m eGFR values Sta ge Description Res ult G1 Normal or hi gh >=90 G2 Mildly decreased 60-89 G3a Mildly to moder ately 45-59 G3b Moder ately to severely 30- 44 G4 Severly decreas ed 15-29 G5 Kidney failure <15Rep orted eGFR is based o n the CKD-EPI 2021 equation that d oes not use a race coefficient Estimated GFR i s not as accurate as Creatinine Lucinda keron in predicting glomerular filtration rate . Estimated GFR i s not applicable for dialysis patien ts VISH (test code = VISH) Community Fundraiser ID - JEREMY Lab Interpretation Abnormal (test code = 19057-0) [facility] Metabolic [id number] 08:26:47 Test Item Value Reference Range Interpretation Comments Sodium (test code = 140 meq/L 039-708 1749-2) Potassium (test code 4.2 meq/L 3.5-5.1 = 2823-3) Chloride (test code = 108 meq/L 98-107 H 2075-0) CO2 (test code = 24 meq/L 22-29 2028-9) BUN (test code = 18 mg/dL 7-21 3094-0) Creatinine (test code 0.79 mg/dL 0.57-1.25 = 2160-0) Glucose (test code = 87 mg/dL 70-105 2345-7) Calcium (test code = 9.3 mg/dL 8.4-10.2 72740-9) EGFR (test code = 104 mL/min/1[place] [address]-2) m eGFR values Sta ge Description Res ult G1 Normal or hi gh >=90 G2 Mildly decreased 60-8 9 G3a Mildly to moder ately 45-59 G3b Moder ately to severely 30- 44 G4 Severly decreas ed 15-29 G5 Kidney failure <15Repo rted eGFR is based o n the CKD-EPI 2021 equation that d oes not use a race coefficient Estimated GFR i s not as accurate as Creatinine Lucinda keron in predicting glomerular filtration rate . Estimated GFR i s not applicable for dialysis patien ts VISH (test code = VISH) Community Fundraiser ID - JEREMY Lab Interpretation Abnormal (test code = 41426-9) [facility] Metabolic [id number] 08:26:47 Test Item Value Reference Range Interpretation Comments Sodium (test code = 140 meq/L 349-221 0596-2) Potassium (test code 4.2 meq/L 3.5-5.1 = 2823-3) Chloride (test code = 108 meq/L 98-107 H 2074-0) CO2 (test code = 24 meq/L 2028-05) BUN (test code = 18 mg/dL 04-14 3094-0) Creatinine (test code 0.79 mg/dL 0.57-1.25 = 2160-0) Glucose (test code = 87 mg/dL 70-105 2345-7) Calcium (test code = 9.3 mg/dL 8.4-10.2 81200-3) EGFR (test code = 104 mL/min/1[place] [address]-5) m eGFR values Sta ge Description Res ult G1 Normal or hi gh >=90 G2 Mildly decreased 60-89 G3a Mildly to moder ately 45-59 G3b Moder ately to severely 30- 44 G4 Severly decreas ed 15-29 G5 Kidney failure <15Repo rted eGFR is based o n the CKD-EPI 2020 equation that d oes not use a race coefficient Estimated GFR i s not as accurate as Creatinine Lucinda cabrales in predicting glomerular filtration rate . Estimated GFR i s not applicable for dialysis patien ts VISH (test code = VISH) Community Fundraiser ID - JEREMY Lab Interpretation Abnormal (test code = 19317-0) [facility] Metabolic [id number] 08:26:47 Test Item Value Reference Range Interpretation Comments Sodium (test code = 140 meq/L 772-225 4699-2) Potassium (test code 4.2 meq/L 3.5-5.1 = 2823-3) Chloride (test code = 108 meq/L 98-107 H 2074-0) CO2 (test code = 24 meq/L 2028-05) BUN (test code = 18 mg/dL 04-14 3094-0) Creatinine (test code 0.79 mg/dL 0.57-1.25 = 2160-0) Glucose (test code = 87 mg/dL 70-105 2345-7) Calcium (test code = 9.3 mg/dL 8.4-10.2 46966-5) EGFR (test code = 104 mL/min/1.[place] [address]-2) m eGFR values Sta ge Description Res ult G1 Normal or hi gh >=90 G2 Mildly decreased 60-89 G3a Mildly to moder ately 45-59 G3b Moderately to severely 30-44 G4 Severly decreas ed 15-29 G5 Kidney failure <15Repo rted eGFR is based o n the CKD-EPI 2021 equation that d oes not use a race coefficient Estimated GFR i s not as accurate as Creatinine Lucinda keron in predicting glomerular filtration rate . Estimated GFR i s not applicable for dialysis patien ts VISH (test code = VISH) Community Fundraiser ID - JEREMY Lab Interpretation Abnormal (test code = 56922-2) [facility] Metabolic [id number] 08:26:47 Test Item Value Reference Range Interpretation Comments Sodium (test code = 140 meq/L 037-354 2186-2) Potassium (test code 4.2 meq/L 3.5-5.1 = 2823-3) Chloride (test code = 108 meq/L 98-107 H 2075-0) CO2 (test code = 24 meq/L -2027-9) BUN (test code = 18 mg/dL 7- 3094-0) Creatinine (test code 0.79 mg/dL 0.57-1.25 = 2160-0) Glucose (test code = 87 mg/dL 70-105 2345-7) Calcium (test code = 9.3 mg/dL 8.4-10.2 11063-9) EGFR (test code = 104 mL/min/1[place] [address]-8) m eGFR values Sta ge Description Res ult G1 Normal or hi gh >=90 G2 Mildly decreased 60-89 G3a Mildly to moder ately 45-59 G3b Moder ately to severely 30- 44 G4 Severly decreas ed 15-29 G5 Kidney failure <15Repo rted eGFR is based o n the CKD-EPI 2021 equation that d oes not use a race coefficient Estimated GFR i s not as accurate as Creatinine Lucinda keron in predicting glomerular filtration rate . Estimated GFR i s not applicable for dialysis patien ts VISH (test code = VISH) Community Fundraiser ID - JEREMY Lab Interpretation Abnormal (test code = 44191-8) [facility] METABOLIC [id number] 08:26:47 Test Item Value Reference Range Interpretation Comments SODIUM (BEAKER) 140 meq/L 136-145 (test code = 381) POTASSIUM 4.2 meq/L 3.5-5.1 (BEAKER) (test code = 379) CHLORIDE (BEAKER) 108 meq/L 98-107 H (test code = 382) CO2 (BEAKER) 24 meq/L 22-29 (test code = 355) BLOOD UREA 18 mg/dL 7-21 NITROGEN (BEAKER) (test code = 354) CREATININE 0.79 mg/dL 0.57-1.25 (BEAKER) (test code = 358) GLUCOSE RANDOM 87 mg/dL 70-105 (BEAKER) (test code = 652) CALCIUM (BEAKER) 9.3 mg/dL 8.4-10.2 (test code = 697) EGFR (BEAKER) 104 Interpretati on of eGFR (test code = mL/min/1.73 values Stage De scription 1092) sq m Result G1 Sophia l or high >=90 G2 Mildly decreased 60-89 G3a Mildl y to moderately 45-5 9 G3b Moderately to s everely 30-44 G4 Severl y decreased 15-29 G5 Kidney failure <15Reported eGF R is based on the CKD-EPI 2020 equation that d oes not use a race coefficientEsti mated GFR is not as accur ate as Creatinine Lucinda keron in predicting glom erular filtration rate . Estimated GFR is not appl icable for dialysis patien ts Community Fundraiser ID - RODOLFOOPT/[id number] 08:12:38 Test Item Value Reference Interpretation Comments Range Protime (test code = 12.4 See_Comment [Autom ated 3922-2) message] The system which generated this result transmitted reference range : 11.9 - 14.2 seconds. The reference range was not used to interpret this result as normal/abnormal . INR (test code = 0.94 <=5.90 6301-6) PTT (test code = 26.8 See_Comment [Automated 17887-4) message] The system which generated this result transmitted reference range : 22.5 - 36.0 seconds. The reference range was not used to interpret this result as normal/abnormal . VISH (test code = RECOMMENDED VISH) COUMADIN/WARFARIN INR THERAPY RANGESSTANDARD DOSE: 2.0 - 3.0 Includes: PROPHYLAXIS for venous thrombosis, systemic embolization; TREATMENT for venous thrombosis and/or pulmonary embolus.HIGH RISK: Target INR is 2.5-3.5 for patients with mechanical heart valves. Lab Interpretation Normal (test code = 40823-6) [id number] 08:12:38 Test Item Value Reference Interpretation Comments Range Protime (test code = 12.4 See_Comment [Autom ated 5902-2) message] The system which generated this result transmitted reference range : 11.9 - 14.2 seconds. The reference range was not used to interpret this result as normal/abnormal . INR (test code = 0.94 <=5.90 6301-6) PTT (test code = 26.8 See_Comment [Automated 58671-1) message] The system which generated this result transmitted reference range : 22.5 - 36.0 seconds. The reference range was not used to interpret this result as normal/abnormal . VISH (test code = RECOMMENDED VISH) COUMADIN/WARFARIN INR THERAPY RANGESSTANDARD DOSE: 2.0 - 3.0 Includes: PROPHYLAXIS for venous thrombosis, systemic embolization; TREATMENT for venous thrombosis and/or pulmonary embolus.HIGH RISK: Target INR is 2.5-3.5 for patients with mechanical heart valves. Lab Interpretation Normal (test code = 19002-5) [facility][id number] 08:12:38 Test Item Value Reference Interpretation Comments Range Protime (test code = 12.4 See_Comment [Autom ated 5902-2) message] The system which generated this result transmitted reference range : 11.9 - 14.2 seconds. The reference range was not used to interpret this result as normal/abnormal . INR (test code = 0.94 See_Comment [Automated 0961-6) message] The system which generated this result transmitted reference range : <=5.90. The reference range was not used to interpret this result as normal/abnormal . PTT (test code = 26.8 See_Comment [Automated 69899-3) message] The system which generated this result transmitted reference range : 22.5 - 36.0 seconds. The reference range was not used to interpret this result as normal/abnormal . VISH (test code = RECOMMENDED VISH) COUMADIN/WARFARIN INR THERAPY RANGESSTANDARD DOSE: 2.0 - 3.0 Includes: PROPHYLAXIS for venous thrombosis, systemic embolization; TREATMENT for venous thrombosis and/or pulmonary embolus.HIGH RISK: Target INR is 2.5-3.5 for patients with mechanical heart valves. Lab Interpretation Normal (test code = 63366-0) [facility]/[id number] 08:12:38 Test Item Value Reference Interpretation Comments Range Protime (test code = 12.4 See_Comment [Autom ated 5902-2) message] The system which generated this result transmitted reference range : 11.9 - 14.2 seconds. The reference range was not used to interpret this result as normal/abnormal . INR (test code = 0.94 See_Comment [Automated 6301-6) message] The system which generated this result transmitted reference range : <=5.90. The reference range was not used to interpret this result as normal/abnormal . PTT (test code = 26.8 See_Comment [Automated 16984-2) message] The system which generated this result transmitted reference range : 22.5 - 36.0 seconds. The reference range was not used to interpret this result as normal/abnormal . VISH (test code = RECOMMENDED VISH) COUMADIN/WARFARIN INR THERAPY RANGESSTANDARD DOSE: 2.0 - 3.0 Includes: PROPHYLAXIS for venous thrombosis, systemic embolization; TREATMENT for venous thrombosis and/or pulmonary embolus.HIGH RISK: Target INR is 2.5-3.5 for patients with mechanical heart valves. Lab Interpretation Normal (test code = 52682-2) [facility]/[id number] 08:12:38 Test Item Value Reference Interpretation Comments Range Protime (test code = 12.4 See_Comment [Autom ated 5902-2) message] The system which generated this result transmitted reference range : 11.9 - 14.2 seconds. The reference range was not used to interpret this result as normal/abnormal . INR (test code = 0.94 See_Comment [Automated 6301-6) message] The system which generated this result transmitted reference range : <=5.90. The reference range was not used to interpret this result as normal/abnormal . PTT (test code = 26.8 See_Comment [Automated 68906-8) message] The system which generated this result transmitted reference range : 22.5 - 36.0 seconds. The reference range was not used to interpret this result as normal/abnormal . VISH (test code = RECOMMENDED VISH) COUMADIN/WARFARIN INR THERAPY RANGESSTANDARD DOSE: 2.0 - 3.0 Includes: PROPHYLAXIS for venous thrombosis, systemic embolization; TREATMENT for venous thrombosis and/or pulmonary embolus.HIGH RISK: Target INR is 2.5-3.5 for patients with mechanical heart valves. Lab Interpretation Normal (test code = 12079-0) [facility]/[id number] 08:12:38 Test Item Value Reference Interpretation Comments Range Protime (test code = 12.4 See_Comment [Autom ated 5902-2) message] The system which generated this result transmitted reference range : 11.9 - 14.2 seconds. The reference range was not used to interpret this result as normal/abnormal . INR (test code = 0.94 See_Comment [Automated 6421-6) message] The system which generated this result transmitted reference range : <=5.90. The reference range was not used to interpret this result as normal/abnormal . PTT (test code = 26.8 See_Comment [Automated 12931-6) message] The system which generated this result transmitted reference range : 22.5 - 36.0 seconds. The reference range was not used to interpret this result as normal/abnormal . VISH (test code = RECOMMENDED VISH) COUMADIN/WARFARIN INR THERAPY RANGESSTANDARD DOSE: 2.0 - 3.0 Includes: PROPHYLAXIS for venous thrombosis, systemic embolization; TREATMENT for venous thrombosis and/or pulmonary embolus.HIGH RISK: Target INR is 2.5-3.5 for patients with mechanical heart valves. Lab Interpretation Normal (test code = 83664-5) [facility]/[id number] 08:12:38 Test Item Value Reference Interpretation Comments Range Protime (test code = 12.4 See_Comment [Autom ated 5902-2) message] The system which generated this result transmitted reference range : 11.9 - 14.2 seconds. The reference range was not used to interpret this result as normal/abnormal . INR (test code = 0.94 See_Comment [Automated 6301-6) message] The system which generated this result transmitted reference range : <=5.90. The reference range was not used to interpret this result as normal/abnormal . PTT (test code = 26.8 See_Comment [Automated 98474-2) message] The system which generated this result transmitted reference range : 22.5 - 36.0 seconds. The reference range was not used to interpret this result as normal/abnormal . VISH (test code = RECOMMENDED VISH) COUMADIN/WARFARIN INR THERAPY RANGESSTANDARD DOSE: 2.0 - 3.0 Includes: PROPHYLAXIS for venous thrombosis, systemic embolization; TREATMENT for venous thrombosis and/or pulmonary embolus.HIGH RISK: Target INR is 2.5-3.5 for patients with mechanical heart valves. Lab Interpretation Normal (test code = 99614-7) [facility]/[id number] 08:12:38 Test Item Value Reference Interpretation Comments Range Protime (test code = 12.4 See_Comment [Autom ated 5902-2) message] The system which generated this result transmitted reference range : 11.9 - 14.2 seconds. The reference range was not used to interpret this result as normal/abnormal . INR (test code = 0.94 <=5.90 6301-6) PTT (test code = 26.8 See_Comment [Automated 18341-7) message] The system which generated this result transmitted reference range : 22.5 - 36.0 seconds. The reference range was not used to interpret this result as normal/abnormal . VISH (test code = RECOMMENDED VISH) COUMADIN/WARFARIN INR THERAPY RANGESSTANDARD DOSE: 2.0 - 3.0 Includes: PROPHYLAXIS for venous thrombosis, systemic embolization; TREATMENT for venous thrombosis and/or pulmonary embolus.HIGH RISK: Target INR is 2.5-3.5 for patients with mechanical heart valves. Lab Interpretation Normal (test code = 92267-3) [facility]/[id number] 08:12:38 Test Item Value Reference Interpretation Comments Range Protime (test code = 12.4 See_Comment [Autom ated 5902-2) message] The system which generated this result transmitted reference range : 11.9 - 14.2 seconds. The reference range was not used to interpret this result as normal/abnormal . INR (test code = 0.94 See_Comment [Automated 6301-6) message] The system which generated this result transmitted reference range : <=5.90. The reference range was not used to interpret this result as normal/abnormal . PTT (test code = 26.8 See_Comment [Automated 04381-2) message] The system which generated this result transmitted reference range : 22.5 - 36.0 seconds. The reference range was not used to interpret this result as normal/abnormal . VISH (test code = RECOMMENDED VISH) COUMADIN/WARFARIN INR THERAPY RANGESSTANDARD DOSE: 2.0 - 3.0 Includes: PROPHYLAXIS for venous thrombosis, systemic embolization; TREATMENT for venous thrombosis and/or pulmonary embolus.HIGH RISK: Target INR is 2.5-3.5 for patients with mechanical heart valves. Lab Interpretation Normal (test code = 98473-8) [facility]/[id number] 08:12:38 Test Item Value Reference Interpretation Comments Range Protime (test code = 12.4 See_Comment [Autom ated 5902-2) message] The system which generated this result transmitted reference range : 11.9 - 14.2 seconds. The reference range was not used to interpret this result as normal/abnormal . INR (test code = 0.94 See_Comment [Automated 6301-6) message] The system which generated this result transmitted reference range : <=5.90. The reference range was not used to interpret this result as normal/abnormal . PTT (test code = 26.8 See_Comment [Automated 83433-9) message] The system which generated this result transmitted reference range : 22.5 - 36.0 seconds. The reference range was not used to interpret this result as normal/abnormal . VISH (test code = RECOMMENDED VISH) COUMADIN/WARFARIN INR THERAPY RANGESSTANDARD DOSE: 2.0 - 3.0 Includes: PROPHYLAXIS for venous thrombosis, systemic embolization; TREATMENT for venous thrombosis and/or pulmonary embolus.HIGH RISK: Target INR is 2.5-3.5 for patients with mechanical heart valves. Lab Interpretation Normal (test code = 97469-9) [facility]/[id number] 08:12:38 Test Item Value Reference Interpretation Comments Range Protime (test code = 12.4 See_Comment [Autom ated 5902-2) message] The system which generated this result transmitted reference range : 11.9 - 14.2 seconds. The reference range was not used to interpret this result as normal/abnormal . INR (test code = 0.94 See_Comment [Automated 6301-6) message] The system which generated this result transmitted reference range : <=5.90. The reference range was not used to interpret this result as normal/abnormal . PTT (test code = 26.8 See_Comment [Automated 47504-0) message] The system which generated this result transmitted reference range : 22.5 - 36.0 seconds. The reference range was not used to interpret this result as normal/abnormal . VISH (test code = RECOMMENDED VISH) COUMADIN/WARFARIN INR THERAPY RANGESSTANDARD DOSE: 2.0 - 3.0 Includes: PROPHYLAXIS for venous thrombosis, systemic embolization; TREATMENT for venous thrombosis and/or pulmonary embolus.HIGH RISK: Target INR is 2.5-3.5 for patients with mechanical heart valves. Lab Interpretation Normal (test code = 48510-5) [facility]/[id number] 08:12:38 Test Item Value Reference Interpretation Comments Range Protime (test code = 12.4 See_Comment [Autom ated 5902-2) message] The system which generated this result transmitted reference range : 11.9 - 14.2 seconds. The reference range was not used to interpret this result as normal/abnormal . INR (test code = 0.94 See_Comment [Automated 6301-6) message] The system which generated this result transmitted reference range : <=5.90. The reference range was not used to interpret this result as normal/abnormal . PTT (test code = 26.8 See_Comment [Automated 69616-0) message] The system which generated this result transmitted reference range : 22.5 - 36.0 seconds. The reference range was not used to interpret this result as normal/abnormal . VISH (test code = RECOMMENDED VISH) COUMADIN/WARFARIN INR THERAPY RANGESSTANDARD DOSE: 2.0 - 3.0 Includes: PROPHYLAXIS for venous thrombosis, systemic embolization; TREATMENT for venous thrombosis and/or pulmonary embolus.HIGH RISK: Target INR is 2.5-3.5 for patients with mechanical heart valves. Lab Interpretation Normal (test code = 00361-9) [facility][id number] 08:12:38 Test Item Value Reference Interpretation Comments Range Protime (test code = 12.4 See_Comment [Autom ated 5902-2) message] The system which generated this result transmitted reference range : 11.9 - 14.2 seconds. The reference range was not used to interpret this result as normal/abnormal . INR (test code = 0.94 <=5.90 6301-6) PTT (test code = 26.8 See_Comment [Automated 71148-0) message] The system which generated this result transmitted reference range : 22.5 - 36.0 seconds. The reference range was not used to interpret this result as normal/abnormal . VISH (test code = RECOMMENDED VISH) COUMADIN/WARFARIN INR THERAPY RANGESSTANDARD DOSE: 2.0 - 3.0 Includes: PROPHYLAXIS for venous thrombosis, systemic embolization; TREATMENT for venous thrombosis and/or pulmonary embolus.HIGH RISK: Target INR is 2.5-3.5 for patients with mechanical heart valves. Lab Interpretation Normal (test code = 87764-6) [facility]/[id number] 08:12:38 Test Item Value Reference Interpretation Comments Range Protime (test code = 12.4 See_Comment [Autom ated 5902-2) message] The system which generated this result transmitted reference range : 11.9 - 14.2 seconds. The reference range was not used to interpret this result as normal/abnormal . INR (test code = 0.94 <=5.90 6301-6) PTT (test code = 26.8 See_Comment [Automated 31171-5) message] The system which generated this result transmitted reference range : 22.5 - 36.0 seconds. The reference range was not used to interpret this result as normal/abnormal . VISH (test code = RECOMMENDED VISH) COUMADIN/WARFARIN INR THERAPY RANGESSTANDARD DOSE: 2.0 - 3.0 Includes: PROPHYLAXIS for venous thrombosis, systemic embolization; TREATMENT for venous thrombosis and/or pulmonary embolus.HIGH RISK: Target INR is 2.5-3.5 for patients with mechanical heart valves. Lab Interpretation Normal (test code = 58800-4) [facility]/[id number] 08:12:38 Test Item Value Reference Range Interpretation Comments PROTIME (BEAKER) (test 12.4 seconds 11.9-14.2 code = 759) INR (BEAKER) (test 0.94 See_Comment [Automat ed code = 370) message] The sy stem which generated this result transmitted reference range : <=5.90. The reference range was not used to interpret this result as normal/abnormal . PARTIAL THROMBOPLASTIN 26.8 seconds 22.5-36.0 TIME (BEAKER) (test code = 760) RECOMMENDED COUMADIN/WARFARIN INR THERAPY RANGESSTANDARD DOSE: 2.0 - 3.0 Includes: PROPHYLAXIS for venous thrombosis, systemic embolization; TREATMENT for venous thrombosis and/or pulmonary embolus.HIGH RISK: Target INR is 2.5-3.5 for patients with mechanical heart valves. Screen, [id number] 08:06:53 Test Item Value Reference Range Interpretation Comments Preg Test, Ur (test code = 2112-1) Negative Negative Lab Interpretation (test code = Normal 83183-9) [facility] [place] Screen, [id number] 08:06:53 Test Item Value Reference Range Interpretation Comments Preg Test, Ur (test code = 2112-1) Negative Negative Lab Interpretation (test code = Normal 16488-1) [facility] [place] Screen, [id number] 08:06:53 Test Item Value Reference Range Interpretation Comments Preg Test, Ur (test code = 2112-1) Negative Negative Lab Interpretation (test code = Normal 01435-1) [facility] [place] Screen, [id number] 08:06:53 Test Item Value Reference Range Interpretation Comments Preg Test, Ur (test code = 2112-1) Negative Negative Lab Interpretation (test code = Normal 79863-8) [facility], [id number] 08:06:53 Test Item Value Reference Range Interpretation Comments Preg Test, Ur (test code = 2112-1) Negative Negative Lab Interpretation (test code = Normal 33956-5) [facility], [id number] 08:06:53 Test Item Value Reference Range Interpretation Comments Preg Test, Ur (test code = 2112-1) Negative Negative Lab Interpretation (test code = Normal 66622-6) [facility] [id number] 08:06:53 Test Item Value Reference Range Interpretation Comments Preg Test, Ur (test code = 2112-1) Negative Negative Lab Interpretation (test code = Normal 56395-8) [facility], [id number] 08:06:53 Test Item Value Reference Range Interpretation Comments Preg Test, Ur (test code = 2112-1) Negative Negative Lab Interpretation (test code = Normal 00245-5) [facility], [id number] 08:06:53 Test Item Value Reference Range Interpretation Comments Preg Test, Ur (test code = 2112-1) Negative Negative Lab Interpretation (test code = Normal 74620-0) [facility] Screen, [id number] 08:06:53 Test Item Value Reference Range Interpretation Comments Preg Test, Ur (test code = 2112-1) Negative Negative Lab Interpretation (test code = Normal 39581-8) [facility] Screen, [id number] 08:06:53 Test Item Value Reference Range Interpretation Comments Preg Test, Ur (test code = 2112-1) Negative Negative Lab Interpretation (test code = Normal 31654-8) [facility] Screen, [id number] 08:06:53 Test Item Value Reference Range Interpretation Comments Preg Test, Ur (test code = 2112-1) Negative Negative Lab Interpretation (test code = Normal 13961-1) [facility] Screen, [id number] 08:06:53 Test Item Value Reference Range Interpretation Comments Preg Test, Ur (test code = 2112-1) Negative Negative Lab Interpretation (test code = Normal 61356-8) [facility] Screen, [id number] 08:06:53 Test Item Value Reference Range Interpretation Comments Preg Test, Ur (test code = 2112-1) Negative Negative Lab Interpretation (test code = Normal 01698-7) [facility] SCREEN, [id number] 08:06:53 Test Item Value Reference Range Interpretation Comments TEST URINE (BEAKER) (test Negative Negative code = 583) CBC with platelet count + automated [id number] 08:01:54 Test Item Value Reference Range Interpretation Comments WBC (test code = 6690-2) 5.8 See_Comment [A utomated message] The system [employer] generated this result transmitted ref erence range: 3.5 - 10 .5 K/L. The refe rence range was not u sed to interpret this result as normal/abnor mal. RBC (test code = 789-8) 4.41 See_Comment [Au tomated message] The system [employer] generated this result transmitted ref erence range: 3.93 - 5 .22 M/L. The refe rence range was not u sed to interpret this result as normal/abnor mal. Hemoglobin (test code = 12.9 See_Comment [Au tomated message] 718-7) The system [employer] generated this result transmitted ref erence range: 11.2 - 1 5.7 GM/DL. The refe rence range was not u sed to interpret this result as normal/abnor mal. Hematocrit (test code = 39.4 % 34.1-44.9 4544-3) MCV (test code = 787-2) 89 fL 79-95 MCH (test code = 785-6) 29.3 pg 25.6-32.2 MCHC (test code = 786-4) 32.7 See_Comment [A utomated message] The system [employer] generated this result transmitted ref erence range: 32.2 - 3 5.5 GM/DL. The refe rence range was not u sed to interpret this result as normal/abnor mal. RDW (test code = 788-0) 13.2 % 11.7-14.4 Platelets (test code = 273 See_Comment [Aut omated message] 777-3) The system [employer] generated this result transmitted ref erence range: 150 - 45 0 K/CU MM. The referen ce range was not u sed to interpret this result as normal/abnor mal. MPV (test code = 11.1 fL 9.4-12.3 47314-8) nRBC (test code = 413) 0 See_Comment [Aut omated message] The system [employer] generated this result transmitted ref erence range: 0 - 0 /1 00 WBC. The refere nce range was not u sed to interpret this result as normal/abnor mal. % Neutros (test code = 54 % 429) % Lymphs (test code = 30 % 430) % Monos (test code = 8 % 431) % Eos (test code = 432) 7 % % Baso (test code = 437) 1 % # Neutros (test code = 3.11 See_Comment [Aut omated message] 670) The system [employer] generated this result transmitted ref erence range: 1.56 - 6 .13 K/L. The refe rence range was not u sed to interpret this result as normal/abnor mal. # Lymphs (test code = 1.73 See_Comment [Auto mated message] 414) The system [employer] generated this result transmitted ref erence range: 1.18 - 3 .74 K/L. The refe rence range was not u sed to interpret this result as normal/abnor mal. # Monos (test code = 0.47 See_Comment H [Autom ated message] 415) The system [employer] generated this result transmitted ref erence range: 0.24 - 0 .36 K/L. The refe rence range was not u sed to interpret this result as normal/abnor mal. # Eos (test code = 416) 0.43 See_Comment H [Au tomated message] The system [employer] generated this result transmitted ref erence range: 0.04 - 0 .36 K/L. The refe rence range was not u sed to interpret this result as normal/abnor mal. # Baso (test code = 417) 0.04 See_Comment [A utomated message] The system [employer] generated this result transmitted ref erence range: 0.01 - 0 .08 K/L. The refe rence range was not u sed to interpret this result as normal/abnor mal. Immature 0.20 % 0.00-1.00 Granulocytes-Relative (test code = 2801) Lab Interpretation (test Abnormal code = 36112-1) [facility] with platelet count + automated [id number] 08:01:54 Test Item Value Reference Range Interpretation Comments WBC (test code = 6690-2) 5.8 See_Comment [A utomated message] The system [employer] generated this result transmitted ref erence range: 3.5 - 10 .5 K/L. The refe rence range was not u sed to interpret this result as normal/abnor mal. RBC (test code = 789-8) 4.41 See_Comment [Au tomated message] The system [employer] generated this result transmitted ref erence range: 3.93 - 5 .22 M/L. The refe rence range was not u sed to interpret this result as normal/abnor mal. Hemoglobin (test code = 12.9 See_Comment [Au tomated message] 718-7) The system [employer] generated this result transmitted ref erence range: 11.2 - 1 5.7 GM/DL. The refe rence range was not u sed to interpret this result as normal/abnor mal. Hematocrit (test code = 39.4 % 34.1-44.9 4544-3) MCV (test code = 787-2) 89 fL 79-95 MCH (test code = 785-6) 29.3 pg 25.6-32.2 MCHC (test code = 786-4) 32.7 See_Comment [A utomated message] The system [employer] generated this result transmitted ref erence range: 32.2 - 3 5.5 GM/DL. The refe rence range was not u sed to interpret this result as normal/abnor mal. RDW (test code = 788-0) 13.2 % 11.7-14.4 Platelets (test code = 273 See_Comment [Aut omated message] 777-3) The system [employer] generated this result transmitted ref erence range: 150 - 45 0 K/CU MM. The referen ce range was not u sed to interpret this result as normal/abnor mal. MPV (test code = 11.1 fL 9.4-12.3 36720-5) nRBC (test code = 413) 0 See_Comment [Aut omated message] The system [employer] generated this result transmitted ref erence range: 0 - 0 /1 00 WBC. The refere nce range was not u sed to interpret this result as normal/abnor mal. % Neutros (test code = 54 % 429) % Lymphs (test code = 30 % 430) % Monos (test code = 8 % 431) % Eos (test code = 432) 7 % % Baso (test code = 437) 1 % # Neutros (test code = 3.11 See_Comment [Aut omated message] 670) The system [employer] generated this result transmitted ref erence range: 1.56 - 6 .13 K/L. The refe rence range was not u sed to interpret this result as normal/abnor mal. # Lymphs (test code = 1.73 See_Comment [Auto mated message] 414) The system [employer] generated this result transmitted ref erence range: 1.18 - 3 .74 K/L. The refe rence range was not u sed to interpret this result as normal/abnor mal. # Monos (test code = 0.47 See_Comment H [Autom ated message] 415) The system [employer] generated this result transmitted ref erence range: 0.24 - 0 .36 K/L. The refe rence range was not u sed to interpret this result as normal/abnor mal. # Eos (test code = 416) 0.43 See_Comment H [Au tomated message] The system [employer] generated this result transmitted ref erence range: 0.04 - 0 .36 K/L. The refe rence range was not u sed to interpret this result as normal/abnor mal. # Baso (test code = 417) 0.04 See_Comment [A utomated message] The system [employer] generated this result transmitted ref erence range: 0.01 - 0 .08 K/L. The refe rence range was not u sed to interpret this result as normal/abnor mal. Immature 0.20 % 0.00-1.00 Granulocytes-Relative (test code = 2801) Lab Interpretation (test Abnormal code = 77184-4) [facility] with platelet count + automated [id number] 08:01:54 Test Item Value Reference Range Interpretation Comments WBC (test code = 6690-2) 5.8 See_Comment [A utomated message] The system [employer] generated this result transmitted ref erence range: 3.5 - 10 .5 K/L. The refe rence range was not u sed to interpret this result as normal/abnor mal. RBC (test code = 789-8) 4.41 See_Comment [Au tomated message] The system [employer] generated this result transmitted ref erence range: 3.93 - 5 .22 M/L. The refe rence range was not u sed to interpret this result as normal/abnor mal. Hemoglobin (test code = 12.9 See_Comment [Au tomated message] 718-7) The system [employer] generated this result transmitted ref erence range: 11.2 - 1 5.7 GM/DL. The refe rence range was not u sed to interpret this result as normal/abnor mal. Hematocrit (test code = 39.4 % 34.1-44.9 4544-3) MCV (test code = 787-2) 89 fL 79-95 MCH (test code = 785-6) 29.3 pg 25.6-32.2 MCHC (test code = 786-4) 32.7 See_Comment [A utomated message] The system [employer] generated this result transmitted ref erence range: 32.2 - 3 5.5 GM/DL. The refe rence range was not u sed to interpret this result as normal/abnor mal. RDW (test code = 788-0) 13.2 % 11.7-14.4 Platelets (test code = 273 See_Comment [Aut omated message] 777-3) The system [employer] generated this result transmitted ref erence range: 150 - 45 0 K/CU MM. The referen ce range was not u sed to interpret this result as normal/abnor mal. MPV (test code = 11.1 fL 9.4-12.3 13121-2) nRBC (test code = 413) 0 See_Comment [Aut omated message] The system [employer] generated this result transmitted ref erence range: 0 - 0 /1 00 WBC. The refere nce range was not u sed to interpret this result as normal/abnor mal. % Neutros (test code = 54 % 429) % Lymphs (test code = 30 % 430) % Monos (test code = 8 % 431) % Eos (test code = 432) 7 % % Baso (test code = 437) 1 % # Neutros (test code = 3.11 See_Comment [Aut omated message] 670) The system [employer] generated this result transmitted ref erence range: 1.56 - 6 .13 K/L. The refe rence range was not u sed to interpret this result as normal/abnor mal. # Lymphs (test code = 1.73 See_Comment [Auto mated message] 414) The system [employer] generated this result transmitted ref erence range: 1.18 - 3 .74 K/L. The refe rence range was not u sed to interpret this result as normal/abnor mal. # Monos (test code = 0.47 See_Comment H [Autom ated message] 415) The system [employer] generated this result transmitted ref erence range: 0.24 - 0 .36 K/L. The refe rence range was not u sed to interpret this result as normal/abnor mal. # Eos (test code = 416) 0.43 See_Comment H [Au tomated message] The system [employer] generated this result transmitted ref erence range: 0.04 - 0 .36 K/L. The refe rence range was not u sed to interpret this result as normal/abnor mal. # Baso (test code = 417) 0.04 See_Comment [A utomated message] The system [employer] generated this result transmitted ref erence range: 0.01 - 0 .08 K/L. The refe rence range was not u sed to interpret this result as normal/abnor mal. Immature 0.20 % 0.00-1.00 Granulocytes-Relative (test code = 2801) Lab Interpretation (test Abnormal code = 15098-3) [facility] with platelet count + automated [id number] 08:01:54 Test Item Value Reference Range Interpretation Comments WBC (test code = 6690-2) 5.8 See_Comment [A utomated message] The system [employer] generated this result transmitted ref erence range: 3.5 - 10 .5 K/L. The refe rence range was not u sed to interpret this result as normal/abnor mal. RBC (test code = 789-8) 4.41 See_Comment [Au tomated message] The system [employer] generated this result transmitted ref erence range: 3.93 - 5 .22 M/L. The refe rence range was not u sed to interpret this result as normal/abnor mal. Hemoglobin (test code = 12.9 See_Comment [Au tomated message] 718-7) The system [employer] generated this result transmitted ref erence range: 11.2 - 1 5.7 GM/DL. The refe rence range was not u sed to interpret this result as normal/abnor mal. Hematocrit (test code = 39.4 % 34.1-44.9 4544-3) MCV (test code = 787-2) 89 fL 79-95 MCH (test code = 785-6) 29.3 pg 25.6-32.2 MCHC (test code = 786-4) 32.7 See_Comment [A utomated message] The system [employer] generated this result transmitted ref erence range: 32.2 - 3 5.5 GM/DL. The refe rence range was not u sed to interpret this result as normal/abnor mal. RDW (test code = 788-0) 13.2 % 11.7-14.4 Platelets (test code = 273 See_Comment [Aut omated message] 777-3) The system [employer] generated this result transmitted ref erence range: 150 - 45 0 K/CU MM. The referen ce range was not u sed to interpret this result as normal/abnor mal. MPV (test code = 11.1 fL 9.4-12.3 30749-3) nRBC (test code = 413) 0 See_Comment [Aut omated message] The system [employer] generated this result transmitted ref erence range: 0 - 0 /1 00 WBC. The refere nce range was not u sed to interpret this result as normal/abnor mal. % Neutros (test code = 54 % 429) % Lymphs (test code = 30 % 430) % Monos (test code = 8 % 431) % Eos (test code = 432) 7 % % Baso (test code = 437) 1 % # Neutros (test code = 3.11 See_Comment [Aut omated message] 670) The system [employer] generated this result transmitted ref erence range: 1.56 - 6 .13 K/L. The refe rence range was not u sed to interpret this result as normal/abnor mal. # Lymphs (test code = 1.73 See_Comment [Auto mated message] 414) The system [employer] generated this result transmitted ref erence range: 1.18 - 3 .74 K/L. The refe rence range was not u sed to interpret this result as normal/abnor mal. # Monos (test code = 0.47 See_Comment H [Autom ated message] 415) The system [employer] generated this result transmitted ref erence range: 0.24 - 0 .36 K/L. The refe rence range was not u sed to interpret this result as normal/abnor mal. # Eos (test code = 416) 0.43 See_Comment H [Au tomated message] The system [employer] generated this result transmitted ref erence range: 0.04 - 0 .36 K/L. The refe rence range was not u sed to interpret this result as normal/abnor mal. # Baso (test code = 417) 0.04 See_Comment [A utomated message] The system [employer] generated this result transmitted ref erence range: 0.01 - 0 .08 K/L. The refe rence range was not u sed to interpret this result as normal/abnor mal. Immature 0.20 % 0.00-1.00 Granulocytes-Relative (test code = 2801) Lab Interpretation (test Abnormal code = 55427-2) [facility] with platelet count + automated [id number] 08:01:54 Test Item Value Reference Range Interpretation Comments WBC (test code = 6690-2) 5.8 See_Comment [A utomated message] The system [employer] generated this result transmitted ref erence range: 3.5 - 10 .5 K/L. The refe rence range was not u sed to interpret this result as normal/abnor mal. RBC (test code = 789-8) 4.41 See_Comment [Au tomated message] The system [employer] generated this result transmitted ref erence range: 3.93 - 5 .22 M/L. The refe rence range was not u sed to interpret this result as normal/abnor mal. Hemoglobin (test code = 12.9 See_Comment [Au tomated message] 718-7) The system [employer] generated this result transmitted ref erence range: 11.2 - 1 5.7 GM/DL. The refe rence range was not u sed to interpret this result as normal/abnor mal. Hematocrit (test code = 39.4 % 34.1-44.9 4544-3) MCV (test code = 787-2) 89 fL 79-95 MCH (test code = 785-6) 29.3 pg 25.6-32.2 MCHC (test code = 786-4) 32.7 See_Comment [A utomated message] The system [employer] generated this result transmitted ref erence range: 32.2 - 3 5.5 GM/DL. The refe rence range was not u sed to interpret this result as normal/abnor mal. RDW (test code = 788-0) 13.2 % 11.7-14.4 Platelets (test code = 273 See_Comment [Aut omated message] 777-3) The system [employer] generated this result transmitted ref erence range: 150 - 45 0 K/CU MM. The referen ce range was not u sed to interpret this result as normal/abnor mal. MPV (test code = 11.1 fL 9.4-12.3 81368-0) nRBC (test code = 413) 0 See_Comment [Aut omated message] The system [employer] generated this result transmitted ref erence range: 0 - 0 /1 00 WBC. The refere nce range was not u sed to interpret this result as normal/abnor mal. % Neutros (test code = 54 % 429) % Lymphs (test code = 30 % 430) % Monos (test code = 8 % 431) % Eos (test code = 432) 7 % % Baso (test code = 437) 1 % # Neutros (test code = 3.11 See_Comment [Aut omated message] 670) The system [employer] generated this result transmitted ref erence range: 1.56 - 6 .13 K/L. The refe rence range was not u sed to interpret this result as normal/abnor mal. # Lymphs (test code = 1.73 See_Comment [Auto mated message] 414) The system [employer] generated this result transmitted ref erence range: 1.18 - 3 .74 K/L. The refe rence range was not u sed to interpret this result as normal/abnor mal. # Monos (test code = 0.47 See_Comment H [Autom ated message] 415) The system [employer] generated this result transmitted ref erence range: 0.24 - 0 .36 K/L. The refe rence range was not u sed to interpret this result as normal/abnor mal. # Eos (test code = 416) 0.43 See_Comment H [Au tomated message] The system [employer] generated this result transmitted ref erence range: 0.04 - 0 .36 K/L. The refe rence range was not u sed to interpret this result as normal/abnor mal. # Baso (test code = 417) 0.04 See_Comment [A utomated message] The system [employer] generated this result transmitted ref erence range: 0.01 - 0 .08 K/L. The refe rence range was not u sed to interpret this result as normal/abnor mal. Immature 0.20 % 0.00-1.00 Granulocytes-Relative (test code = 2801) Lab Interpretation (test Abnormal code = 26281-6) [facility] with platelet count + automated [id number] 08:01:54 Test Item Value Reference Range Interpretation Comments WBC (test code = 6690-2) 5.8 See_Comment [A utomated message] The system [employer] generated this result transmitted ref erence range: 3.5 - 10 .5 K/L. The refe rence range was not u sed to interpret this result as normal/abnor mal. RBC (test code = 789-8) 4.41 See_Comment [Au tomated message] The system [employer] generated this result transmitted ref erence range: 3.93 - 5 .22 M/L. The refe rence range was not u sed to interpret this result as normal/abnor mal. Hemoglobin (test code = 12.9 See_Comment [Au tomated message] 718-7) The system [employer] generated this result transmitted ref erence range: 11.2 - 1 5.7 GM/DL. The refe rence range was not u sed to interpret this result as normal/abnor mal. Hematocrit (test code = 39.4 % 34.1-44.9 4544-3) MCV (test code = 787-2) 89 fL 79-95 MCH (test code = 785-6) 29.3 pg 25.6-32.2 MCHC (test code = 786-4) 32.7 See_Comment [A utomated message] The system [employer] generated this result transmitted ref erence range: 32.2 - 3 5.5 GM/DL. The refe rence range was not u sed to interpret this result as normal/abnor mal. RDW (test code = 788-0) 13.2 % 11.7-14.4 Platelets (test code = 273 See_Comment [Aut omated message] 777-3) The system [employer] generated this result transmitted ref erence range: 150 - 45 0 K/CU MM. The referen ce range was not u sed to interpret this result as normal/abnor mal. MPV (test code = 11.1 fL 9.4-12.3 89954-1) nRBC (test code = 413) 0 See_Comment [Aut omated message] The system [employer] generated this result transmitted ref erence range: 0 - 0 /1 00 WBC. The refere nce range was not u sed to interpret this result as normal/abnor mal. % Neutros (test code = 54 % 429) % Lymphs (test code = 30 % 430) % Monos (test code = 8 % 431) % Eos (test code = 432) 7 % % Baso (test code = 437) 1 % # Neutros (test code = 3.11 See_Comment [Aut omated message] 670) The system [employer] generated this result transmitted ref erence range: 1.56 - 6 .13 K/L. The refe rence range was not u sed to interpret this result as normal/abnor mal. # Lymphs (test code = 1.73 See_Comment [Auto mated message] 414) The system [employer] generated this result transmitted ref erence range: 1.18 - 3 .74 K/L. The refe rence range was not u sed to interpret this result as normal/abnor mal. # Monos (test code = 0.47 See_Comment H [Autom ated message] 415) The system [employer] generated this result transmitted ref erence range: 0.24 - 0 .36 K/L. The refe rence range was not u sed to interpret this result as normal/abnor mal. # Eos (test code = 416) 0.43 See_Comment H [Au tomated message] The system [employer] generated this result transmitted ref erence range: 0.04 - 0 .36 K/L. The refe rence range was not u sed to interpret this result as normal/abnor mal. # Baso (test code = 417) 0.04 See_Comment [A utomated message] The system [employer] generated this result transmitted ref erence range: 0.01 - 0 .08 K/L. The refe rence range was not u sed to interpret this result as normal/abnor mal. Immature 0.20 % 0.00-1.00 Granulocytes-Relative (test code = 2801) Lab Interpretation (test Abnormal code = 06745-6) [facility] with platelet count + automated [id number] 08:01:54 Test Item Value Reference Range Interpretation Comments WBC (test code = 6690-2) 5.8 See_Comment [A utomated message] The system [employer] generated this result transmitted ref erence range: 3.5 - 10 .5 K/L. The refe rence range was not u sed to interpret this result as normal/abnor mal. RBC (test code = 789-8) 4.41 See_Comment [Au tomated message] The system [employer] generated this result transmitted ref erence range: 3.93 - 5 .22 M/L. The refe rence range was not u sed to interpret this result as normal/abnor mal. Hemoglobin (test code = 12.9 See_Comment [Au tomated message] 718-7) The system [employer] generated this result transmitted ref erence range: 11.2 - 1 5.7 GM/DL. The refe rence range was not u sed to interpret this result as normal/abnor mal. Hematocrit (test code = 39.4 % 34.1-44.9 4544-3) MCV (test code = 787-2) 89 fL 79-95 MCH (test code = 785-6) 29.3 pg 25.6-32.2 MCHC (test code = 786-4) 32.7 See_Comment [A utomated message] The system [employer] generated this result transmitted ref erence range: 32.2 - 3 5.5 GM/DL. The refe rence range was not u sed to interpret this result as normal/abnor mal. RDW (test code = 788-0) 13.2 % 11.7-14.4 Platelets (test code = 273 See_Comment [Aut omated message] 777-3) The system [employer] generated this result transmitted ref erence range: 150 - 45 0 K/CU MM. The referen ce range was not u sed to interpret this result as normal/abnor mal. MPV (test code = 11.1 fL 9.4-12.3 88516-0) nRBC (test code = 413) 0 See_Comment [Aut omated message] The system [employer] generated this result transmitted ref erence range: 0 - 0 /1 00 WBC. The refere nce range was not u sed to interpret this result as normal/abnor mal. % Neutros (test code = 54 % 429) % Lymphs (test code = 30 % 430) % Monos (test code = 8 % 431) % Eos (test code = 432) 7 % % Baso (test code = 437) 1 % # Neutros (test code = 3.11 See_Comment [Aut omated message] 670) The system [employer] generated this result transmitted ref erence range: 1.56 - 6 .13 K/L. The refe rence range was not u sed to interpret this result as normal/abnor mal. # Lymphs (test code = 1.73 See_Comment [Auto mated message] 414) The system [employer] generated this result transmitted ref erence range: 1.18 - 3 .74 K/L. The refe rence range was not u sed to interpret this result as normal/abnor mal. # Monos (test code = 0.47 See_Comment H [Autom ated message] 415) The system [employer] generated this result transmitted ref erence range: 0.24 - 0 .36 K/L. The refe rence range was not u sed to interpret this result as normal/abnor mal. # Eos (test code = 416) 0.43 See_Comment H [Au tomated message] The system [employer] generated this result transmitted ref erence range: 0.04 - 0 .36 K/L. The refe rence range was not u sed to interpret this result as normal/abnor mal. # Baso (test code = 417) 0.04 See_Comment [A utomated message] The system [employer] generated this result transmitted ref erence range: 0.01 - 0 .08 K/L. The refe rence range was not u sed to interpret this result as normal/abnor mal. Immature 0.20 % 0.00-1.00 Granulocytes-Relative (test code = 2801) Lab Interpretation (test Abnormal code = 61075-1) [facility] with platelet count + automated [id number] 08:01:54 Test Item Value Reference Range Interpretation Comments WBC (test code = 6690-2) 5.8 See_Comment [A utomated message] The system [employer] generated this result transmitted ref erence range: 3.5 - 10 .5 K/L. The refe rence range was not u sed to interpret this result as normal/abnor mal. RBC (test code = 789-8) 4.41 See_Comment [Au tomated message] The system [employer] generated this result transmitted ref erence range: 3.93 - 5 .22 M/L. The refe rence range was not u sed to interpret this result as normal/abnor mal. Hemoglobin (test code = 12.9 See_Comment [Au tomated message] 718-7) The system [employer] generated this result transmitted ref erence range: 11.2 - 1 5.7 GM/DL. The refe rence range was not u sed to interpret this result as normal/abnor mal. Hematocrit (test code = 39.4 % 34.1-44.9 4544-3) MCV (test code = 787-2) 89 fL 79-95 MCH (test code = 785-6) 29.3 pg 25.6-32.2 MCHC (test code = 786-4) 32.7 See_Comment [A utomated message] The system [employer] generated this result transmitted ref erence range: 32.2 - 3 5.5 GM/DL. The refe rence range was not u sed to interpret this result as normal/abnor mal. RDW (test code = 788-0) 13.2 % 11.7-14.4 Platelets (test code = 273 See_Comment [Aut omated message] 777-3) The system [employer] generated this result transmitted ref erence range: 150 - 45 0 K/CU MM. The referen ce range was not u sed to interpret this result as normal/abnor mal. MPV (test code = 11.1 fL 9.4-12.3 56857-4) nRBC (test code = 413) 0 See_Comment [Aut omated message] The system [employer] generated this result transmitted ref erence range: 0 - 0 /1 00 WBC. The refere nce range was not u sed to interpret this result as normal/abnor mal. % Neutros (test code = 54 % 429) % Lymphs (test code = 30 % 430) % Monos (test code = 8 % 431) % Eos (test code = 432) 7 % % Baso (test code = 437) 1 % # Neutros (test code = 3.11 See_Comment [Aut omated message] 670) The system [employer] generated this result transmitted ref erence range: 1.56 - 6 .13 K/L. The refe rence range was not u sed to interpret this result as normal/abnor mal. # Lymphs (test code = 1.73 See_Comment [Auto mated message] 414) The system [employer] generated this result transmitted ref erence range: 1.18 - 3 .74 K/L. The refe rence range was not u sed to interpret this result as normal/abnor mal. # Monos (test code = 0.47 See_Comment H [Autom ated message] 415) The system [employer] generated this result transmitted ref erence range: 0.24 - 0 .36 K/L. The refe rence range was not u sed to interpret this result as normal/abnor mal. # Eos (test code = 416) 0.43 See_Comment H [Au tomated message] The system [employer] generated this result transmitted ref erence range: 0.04 - 0 .36 K/L. The refe rence range was not u sed to interpret this result as normal/abnor mal. # Baso (test code = 417) 0.04 See_Comment [A utomated message] The system [employer] generated this result transmitted ref erence range: 0.01 - 0 .08 K/L. The refe rence range was not u sed to interpret this result as normal/abnor mal. Immature 0.20 % 0.00-1.00 Granulocytes-Relative (test code = 2801) Lab Interpretation (test Abnormal code = 31191-3) [facility] with platelet count + automated [id number] 08:01:54 Test Item Value Reference Range Interpretation Comments WBC (test code = 6690-2) 5.8 See_Comment [A utomated message] The system [employer] generated this result transmitted ref erence range: 3.5 - 10 .5 K/L. The refe rence range was not u sed to interpret this result as normal/abnor mal. RBC (test code = 789-8) 4.41 See_Comment [Au tomated message] The system [employer] generated this result transmitted ref erence range: 3.93 - 5 .22 M/L. The refe rence range was not u sed to interpret this result as normal/abnor mal. Hemoglobin (test code = 12.9 See_Comment [Au tomated message] 718-7) The system [employer] generated this result transmitted ref erence range: 11.2 - 1 5.7 GM/DL. The refe rence range was not u sed to interpret this result as normal/abnor mal. Hematocrit (test code = 39.4 % 34.1-44.9 4544-3) MCV (test code = 787-2) 89 fL 79-95 MCH (test code = 785-6) 29.3 pg 25.6-32.2 MCHC (test code = 786-4) 32.7 See_Comment [A utomated message] The system [employer] generated this result transmitted ref erence range: 32.2 - 3 5.5 GM/DL. The refe rence range was not u sed to interpret this result as normal/abnor mal. RDW (test code = 788-0) 13.2 % 11.7-14.4 Platelets (test code = 273 See_Comment [Aut omated message] 777-3) The system [employer] generated this result transmitted ref erence range: 150 - 45 0 K/CU MM. The referen ce range was not u sed to interpret this result as normal/abnor mal. MPV (test code = 11.1 fL 9.4-12.3 40272-5) nRBC (test code = 413) 0 See_Comment [Aut omated message] The system [employer] generated this result transmitted ref erence range: 0 - 0 /1 00 WBC. The refere nce range was not u sed to interpret this result as normal/abnor mal. % Neutros (test code = 54 % 429) % Lymphs (test code = 30 % 430) % Monos (test code = 8 % 431) % Eos (test code = 432) 7 % % Baso (test code = 437) 1 % # Neutros (test code = 3.11 See_Comment [Aut omated message] 670) The system [employer] generated this result transmitted ref erence range: 1.56 - 6 .13 K/L. The refe rence range was not u sed to interpret this result as normal/abnor mal. # Lymphs (test code = 1.73 See_Comment [Auto mated message] 414) The system [employer] generated this result transmitted ref erence range: 1.18 - 3 .74 K/L. The refe rence range was not u sed to interpret this result as normal/abnor mal. # Monos (test code = 0.47 See_Comment H [Autom ated message] 415) The system [employer] generated this result transmitted ref erence range: 0.24 - 0 .36 K/L. The refe rence range was not u sed to interpret this result as normal/abnor mal. # Eos (test code = 416) 0.43 See_Comment H [Au tomated message] The system [employer] generated this result transmitted ref erence range: 0.04 - 0 .36 K/L. The refe rence range was not u sed to interpret this result as normal/abnor mal. # Baso (test code = 417) 0.04 See_Comment [A utomated message] The system [employer] generated this result transmitted ref erence range: 0.01 - 0 .08 K/L. The refe rence range was not u sed to interpret this result as normal/abnor mal. Immature 0.20 % 0.00-1.00 Granulocytes-Relative (test code = 2801) Lab Interpretation (test Abnormal code = 22176-7) [facility] with platelet count + automated [id number] 08:01:54 Test Item Value Reference Range Interpretation Comments WBC (test code = 6690-2) 5.8 See_Comment [A utomated message] The system [employer] generated this result transmitted ref erence range: 3.5 - 10 .5 K/L. The refe rence range was not u sed to interpret this result as normal/abnor mal. RBC (test code = 789-8) 4.41 See_Comment [Au tomated message] The system [employer] generated this result transmitted ref erence range: 3.93 - 5 .22 M/L. The refe rence range was not u sed to interpret this result as normal/abnor mal. Hemoglobin (test code = 12.9 See_Comment [Au tomated message] 718-7) The system [employer] generated this result transmitted ref erence range: 11.2 - 1 5.7 GM/DL. The refe rence range was not u sed to interpret this result as normal/abnor mal. Hematocrit (test code = 39.4 % 34.1-44.9 4544-3) MCV (test code = 787-2) 89 fL 79-95 MCH (test code = 785-6) 29.3 pg 25.6-32.2 MCHC (test code = 786-4) 32.7 See_Comment [A utomated message] The system [employer] generated this result transmitted ref erence range: 32.2 - 3 5.5 GM/DL. The refe rence range was not u sed to interpret this result as normal/abnor mal. RDW (test code = 788-0) 13.2 % 11.7-14.4 Platelets (test code = 273 See_Comment [Aut omated message] 777-3) The system [employer] generated this result transmitted ref erence range: 150 - 45 0 K/CU MM. The referen ce range was not u sed to interpret this result as normal/abnor mal. MPV (test code = 11.1 fL 9.4-12.3 32330-9) nRBC (test code = 413) 0 See_Comment [Aut omated message] The system [employer] generated this result transmitted ref erence range: 0 - 0 /1 00 WBC. The refere nce range was not u sed to interpret this result as normal/abnor mal. % Neutros (test code = 54 % 429) % Lymphs (test code = 30 % 430) % Monos (test code = 8 % 431) % Eos (test code = 432) 7 % % Baso (test code = 437) 1 % # Neutros (test code = 3.11 See_Comment [Aut omated message] 670) The system [employer] generated this result transmitted ref erence range: 1.56 - 6 .13 K/L. The refe rence range was not u sed to interpret this result as normal/abnor mal. # Lymphs (test code = 1.73 See_Comment [Auto mated message] 414) The system [employer] generated this result transmitted ref erence range: 1.18 - 3 .74 K/L. The refe rence range was not u sed to interpret this result as normal/abnor mal. # Monos (test code = 0.47 See_Comment H [Autom ated message] 415) The system [employer] generated this result transmitted ref erence range: 0.24 - 0 .36 K/L. The refe rence range was not u sed to interpret this result as normal/abnor mal. # Eos (test code = 416) 0.43 See_Comment H [Au tomated message] The system [employer] generated this result transmitted ref erence range: 0.04 - 0 .36 K/L. The refe rence range was not u sed to interpret this result as normal/abnor mal. # Baso (test code = 417) 0.04 See_Comment [A utomated message] The system [employer] generated this result transmitted ref erence range: 0.01 - 0 .08 K/L. The refe rence range was not u sed to interpret this result as normal/abnor mal. Immature 0.20 % 0.00-1.00 Granulocytes-Relative (test code = 2801) Lab Interpretation (test Abnormal code = 20029-6) [facility] with platelet count + automated [id number] 08:01:54 Test Item Value Reference Range Interpretation Comments WBC (test code = 6690-2) 5.8 See_Comment [A utomated message] The system [employer] generated this result transmitted ref erence range: 3.5 - 10 .5 K/L. The refe rence range was not u sed to interpret this result as normal/abnor mal. RBC (test code = 789-8) 4.41 See_Comment [Au tomated message] The system [employer] generated this result transmitted ref erence range: 3.93 - 5 .22 M/L. The refe rence range was not u sed to interpret this result as normal/abnor mal. Hemoglobin (test code = 12.9 See_Comment [Au tomated message] 718-7) The system [employer] generated this result transmitted ref erence range: 11.2 - 1 5.7 GM/DL. The refe rence range was not u sed to interpret this result as normal/abnor mal. Hematocrit (test code = 39.4 % 34.1-44.9 4544-3) MCV (test code = 787-2) 89 fL 79-95 MCH (test code = 785-6) 29.3 pg 25.6-32.2 MCHC (test code = 786-4) 32.7 See_Comment [A utomated message] The system [employer] generated this result transmitted ref erence range: 32.2 - 3 5.5 GM/DL. The refe rence range was not u sed to interpret this result as normal/abnor mal. RDW (test code = 788-0) 13.2 % 11.7-14.4 Platelets (test code = 273 See_Comment [Aut omated message] 777-3) The system [employer] generated this result transmitted ref erence range: 150 - 45 0 K/CU MM. The referen ce range was not u sed to interpret this result as normal/abnor mal. MPV (test code = 11.1 fL 9.4-12.3 90240-0) nRBC (test code = 413) 0 See_Comment [Aut omated message] The system [employer] generated this result transmitted ref erence range: 0 - 0 /1 00 WBC. The refere nce range was not u sed to interpret this result as normal/abnor mal. % Neutros (test code = 54 % 429) % Lymphs (test code = 30 % 430) % Monos (test code = 8 % 431) % Eos (test code = 432) 7 % % Baso (test code = 437) 1 % # Neutros (test code = 3.11 See_Comment [Aut omated message] 670) The system [employer] generated this result transmitted ref erence range: 1.56 - 6 .13 K/L. The refe rence range was not u sed to interpret this result as normal/abnor mal. # Lymphs (test code = 1.73 See_Comment [Auto mated message] 414) The system [employer] generated this result transmitted ref erence range: 1.18 - 3 .74 K/L. The refe rence range was not u sed to interpret this result as normal/abnor mal. # Monos (test code = 0.47 See_Comment H [Autom ated message] 415) The system [employer] generated this result transmitted ref erence range: 0.24 - 0 .36 K/L. The refe rence range was not u sed to interpret this result as normal/abnor mal. # Eos (test code = 416) 0.43 See_Comment H [Au tomated message] The system [employer] generated this result transmitted ref erence range: 0.04 - 0 .36 K/L. The refe rence range was not u sed to interpret this result as normal/abnor mal. # Baso (test code = 417) 0.04 See_Comment [A utomated message] The system [employer] generated this result transmitted ref erence range: 0.01 - 0 .08 K/L. The refe rence range was not u sed to interpret this result as normal/abnor mal. Immature 0.20 % 0.00-1.00 Granulocytes-Relative (test code = 2801) Lab Interpretation (test Abnormal code = 50977-1) [facility] with platelet count + automated [id number] 08:01:54 Test Item Value Reference Range Interpretation Comments WBC (test code = 6690-2) 5.8 See_Comment [A utomated message] The system [employer] generated this result transmitted ref erence range: 3.5 - 10 .5 K/L. The refe rence range was not u sed to interpret this result as normal/abnor mal. RBC (test code = 789-8) 4.41 See_Comment [Au tomated message] The system [employer] generated this result transmitted ref erence range: 3.93 - 5 .22 M/L. The refe rence range was not u sed to interpret this result as normal/abnor mal. Hemoglobin (test code = 12.9 See_Comment [Au tomated message] 718-7) The system [employer] generated this result transmitted ref erence range: 11.2 - 1 5.7 GM/DL. The refe rence range was not u sed to interpret this result as normal/abnor mal. Hematocrit (test code = 39.4 % 34.1-44.9 4544-3) MCV (test code = 787-2) 89 fL 79-95 MCH (test code = 785-6) 29.3 pg 25.6-32.2 MCHC (test code = 786-4) 32.7 See_Comment [A utomated message] The system [employer] generated this result transmitted ref erence range: 32.2 - 3 5.5 GM/DL. The refe rence range was not u sed to interpret this result as normal/abnor mal. RDW (test code = 788-0) 13.2 % 11.7-14.4 Platelets (test code = 273 See_Comment [Aut omated message] 777-3) The system [employer] generated this result transmitted ref erence range: 150 - 45 0 K/CU MM. The referen ce range was not u sed to interpret this result as normal/abnor mal. MPV (test code = 11.1 fL 9.4-12.3 49731-2) nRBC (test code = 413) 0 See_Comment [Aut omated message] The system [employer] generated this result transmitted ref erence range: 0 - 0 /1 00 WBC. The refere nce range was not u sed to interpret this result as normal/abnor mal. % Neutros (test code = 54 % 429) % Lymphs (test code = 30 % 430) % Monos (test code = 8 % 431) % Eos (test code = 432) 7 % % Baso (test code = 437) 1 % # Neutros (test code = 3.11 See_Comment [Aut omated message] 670) The system [employer] generated this result transmitted ref erence range: 1.56 - 6 .13 K/L. The refe rence range was not u sed to interpret this result as normal/abnor mal. # Lymphs (test code = 1.73 See_Comment [Auto mated message] 414) The system [employer] generated this result transmitted ref erence range: 1.18 - 3 .74 K/L. The refe rence range was not u sed to interpret this result as normal/abnor mal. # Monos (test code = 0.47 See_Comment H [Autom ated message] 415) The system [employer] generated this result transmitted ref erence range: 0.24 - 0 .36 K/L. The refe rence range was not u sed to interpret this result as normal/abnor mal. # Eos (test code = 416) 0.43 See_Comment H [Au tomated message] The system [employer] generated this result transmitted ref erence range: 0.04 - 0 .36 K/L. The refe rence range was not u sed to interpret this result as normal/abnor mal. # Baso (test code = 417) 0.04 See_Comment [A utomated message] The system [employer] generated this result transmitted ref erence range: 0.01 - 0 .08 K/L. The refe rence range was not u sed to interpret this result as normal/abnor mal. Immature 0.20 % 0.00-1.00 Granulocytes-Relative (test code = 2801) Lab Interpretation (test Abnormal code = 96085-5) [facility] with platelet count + automated [id number] 08:01:54 Test Item Value Reference Range Interpretation Comments WBC (test code = 6690-2) 5.8 See_Comment [A utomated message] The system [employer] generated this result transmitted ref erence range: 3.5 - 10 .5 K/L. The refe rence range was not u sed to interpret this result as normal/abnor mal. RBC (test code = 789-8) 4.41 See_Comment [Au tomated message] The system [employer] generated this result transmitted ref erence range: 3.93 - 5 .22 M/L. The refe rence range was not u sed to interpret this result as normal/abnor mal. Hemoglobin (test code = 12.9 See_Comment [Au tomated message] 578-7) The system [employer] generated this result transmitted ref erence range: 11.2 - 1 5.7 GM/DL. The refe rence range was not u sed to interpret this result as normal/abnor mal. Hematocrit (test code = 39.4 % 34.1-44.9 4544-3) MCV (test code = 787-2) 89 fL 79-95 MCH (test code = 785-6) 29.3 pg 25.6-32.2 MCHC (test code = 786-4) 32.7 See_Comment [A utomated message] The system [employer] generated this result transmitted ref erence range: 32.2 - 3 5.5 GM/DL. The refe rence range was not u sed to interpret this result as normal/abnor mal. RDW (test code = 788-0) 13.2 % 11.7-14.4 Platelets (test code = 273 See_Comment [Aut omated message] 907-3) The system [employer] generated this result transmitted ref erence range: 150 - 45 0 K/CU MM. The referen ce range was not u sed to interpret this result as normal/abnor mal. MPV (test code = 11.1 fL 9.4-12.3 73229-6) nRBC (test code = 413) 0 See_Comment [Aut omated message] The system [employer] generated this result transmitted ref erence range: 0 - 0 /1 00 WBC. The refere nce range was not u sed to interpret this result as normal/abnor mal. % Neutros (test code = 54 % 429) % Lymphs (test code = 30 % 430) % Monos (test code = 8 % 431) % Eos (test code = 432) 7 % % Baso (test code = 437) 1 % # Neutros (test code = 3.11 See_Comment [Aut omated message] 670) The system [employer] generated this result transmitted ref erence range: 1.56 - 6 .13 K/L. The refe rence range was not u sed to interpret this result as normal/abnor mal. # Lymphs (test code = 1.73 See_Comment [Auto mated message] 414) The system [employer] generated this result transmitted ref erence range: 1.18 - 3 .74 K/L. The refe rence range was not u sed to interpret this result as normal/abnor mal. # Monos (test code = 0.47 See_Comment H [Autom ated message] 415) The system [employer] generated this result transmitted ref erence range: 0.24 - 0 .36 K/L. The refe rence range was not u sed to interpret this result as normal/abnor mal. # Eos (test code = 416) 0.43 See_Comment H [Au tomated message] The system [employer] generated this result transmitted ref erence range: 0.04 - 0 .36 K/L. The refe rence range was not u sed to interpret this result as normal/abnor mal. # Baso (test code = 417) 0.04 See_Comment [A utomated message] The system [employer] generated this result transmitted ref erence range: 0.01 - 0 .08 K/L. The refe rence range was not u sed to interpret this result as normal/abnor mal. Immature 0.20 % 0.00-1.00 Granulocytes-Relative (test code = 2801) Lab Interpretation (test Abnormal code = 56629-8) [facility] with platelet count + automated [id number] 08:01:54 Test Item Value Reference Range Interpretation Comments WBC (test code = 6690-2) 5.8 See_Comment [A utomated message] The system [employer] generated this result transmitted ref erence range: 3.5 - 10 .5 K/L. The refe rence range was not u sed to interpret this result as normal/abnor mal. RBC (test code = 789-8) 4.41 See_Comment [Au tomated message] The system [employer] generated this result transmitted ref erence range: 3.93 - 5 .22 M/L. The refe rence range was not u sed to interpret this result as normal/abnor mal. Hemoglobin (test code = 12.9 See_Comment [Au tomated message] 718-7) The system [employer] generated this result transmitted ref erence range: 11.2 - 1 5.7 GM/DL. The refe rence range was not u sed to interpret this result as normal/abnor mal. Hematocrit (test code = 39.4 % 34.1-44.9 4544-3) MCV (test code = 787-2) 89 fL 79-95 MCH (test code = 785-6) 29.3 pg 25.6-32.2 MCHC (test code = 786-4) 32.7 See_Comment [A utomated message] The system [employer] generated this result transmitted ref erence range: 32.2 - 3 5.5 GM/DL. The refe rence range was not u sed to interpret this result as normal/abnor mal. RDW (test code = 788-0) 13.2 % 11.7-14.4 Platelets (test code = 273 See_Comment [Aut omated message] 217-3) The system [employer] generated this result transmitted ref erence range: 150 - 45 0 K/CU MM. The referen ce range was not u sed to interpret this result as normal/abnor mal. MPV (test code = 11.1 fL 9.4-12.3 19608-6) nRBC (test code = 413) 0 See_Comment [Aut omated message] The system [employer] generated this result transmitted ref erence range: 0 - 0 /1 00 WBC. The refere nce range was not u sed to interpret this result as normal/abnor mal. % Neutros (test code = 54 % 429) % Lymphs (test code = 30 % 430) % Monos (test code = 8 % 431) % Eos (test code = 432) 7 % % Baso (test code = 437) 1 % # Neutros (test code = 3.11 See_Comment [Aut omated message] 670) The system [employer] generated this result transmitted ref erence range: 1.56 - 6 .13 K/L. The refe rence range was not u sed to interpret this result as normal/abnor mal. # Lymphs (test code = 1.73 See_Comment [Auto mated message] 414) The system [employer] generated this result transmitted ref erence range: 1.18 - 3 .74 K/L. The refe rence range was not u sed to interpret this result as normal/abnor mal. # Monos (test code = 0.47 See_Comment H [Autom ated message] 415) The system [employer] generated this result transmitted ref erence range: 0.24 - 0 .36 K/L. The refe rence range was not u sed to interpret this result as normal/abnor mal. # Eos (test code = 416) 0.43 See_Comment H [Au tomated message] The system [employer] generated this result transmitted ref erence range: 0.04 - 0 .36 K/L. The refe rence range was not u sed to interpret this result as normal/abnor mal. # Baso (test code = 417) 0.04 See_Comment [A utomated message] The system [employer] generated this result transmitted ref erence range: 0.01 - 0 .08 K/L. The refe rence range was not u sed to interpret this result as normal/abnor mal. Immature 0.20 % 0.00-1.00 Granulocytes-Relative (test code = 2801) Lab Interpretation (test Abnormal code = 56061-5) [facility] W/PLT COUNT & AUTO [id number] 08:01:54 Test Item Value Reference Range Interpretation Comments WHITE BLOOD CELL COUNT (BEAKER) 5.8 K/ L 3.5-10.5 (test code = 775) RED BLOOD CELL COUNT (BEAKER) 4.41 M/ L 3.93-5.22 (test code = 761) HEMOGLOBIN (BEAKER) (test code = 12.9 GM/DL 11.2-15.7 410) HEMATOCRIT (BEAKER) (test code = 39.4 % 34.1-44.9 411) MEAN CORPUSCULAR VOLUME (BEAKER) 89 fL 79-95 (test code = 753) MEAN CORPUSCULAR HEMOGLOBIN 29.3 pg 25.6-32.2 (BEAKER) (test code = 751) MEAN CORPUSCULAR HEMOGLOBIN CONC 32.7 GM/DL 32.2-35.5 (BEAKER) (test code = 752) RED CELL DISTRIBUTION WIDTH 13.2 % 11.7-14.4 (BEAKER) (test code = 412) PLATELET COUNT (BEAKER) (test 273 K/CU MM 150-450 code = 756) MEAN PLATELET VOLUME (BEAKER) 11.1 fL 9.4-12.3 (test code = 754) NUCLEATED RED BLOOD CELLS 0 /100 WBC 0-0 (BEAKER) (test code = 413) NEUTROPHILS RELATIVE PERCENT 54 % (BEAKER) (test code = 429) LYMPHOCYTES RELATIVE PERCENT 30 % (BEAKER) (test code = 430) MONOCYTES RELATIVE PERCENT 8 % (BEAKER) (test code = 431) EOSINOPHILS RELATIVE PERCENT 7 % (BEAKER) (test code = 432) BASOPHILS RELATIVE PERCENT 1 % (BEAKER) (test code = 437) NEUTROPHILS ABSOLUTE COUNT 3.11 K/ L 1.56-6.13 (BEAKER) (test code = 670) LYMPHOCYTES ABSOLUTE COUNT 1.73 K/ L 1.18-3.74 (BEAKER) (test code = 414) MONOCYTES ABSOLUTE COUNT (BEAKER) 0.47 K/ L 0.24-0.36 H (test code = 415) EOSINOPHILS ABSOLUTE COUNT 0.43 K/ L 0.04-0.36 H (BEAKER) (test code = 416) BASOPHILS ABSOLUTE COUNT (BEAKER) 0.04 K/ L 0.01-0.08 (test code = 417) IMMATURE GRANULOCYTES-RELATIVE 0.20 % 0.00-1.00 PERCENT (BEAKER) (test code = 2801) [place], ANGIOGRAM, [id number] 12:23:00Reason for Exam:->[id number] REPORT DATE OF PROCEDURE: 11/01/2019 SURGEON: Dev Rollins M.D. 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 She recovered well from the subarachnoid hemorrhage and presents here today for evaluation of treatment effect. PROCEDURE: Following explanation of the benefits, risks and alternatives for the procedure, informed consent was obtained from the patient. The risks including but not limited to stroke, intracranial hemorrhage, vascular injury to the cervical or femoral vessels and puncture site hematoma were discussed with the patient. A time-out was performed. The right arm was prepped in the usual sterile fashion using Chloraprep, and sterilely draped. The skin over the right wrist was anesthetized with 1% lidocaine. Using ultrasound guidance, a single wall puncture of the right radial artery was performed using a micropuncture set and a 5-Fr short sheath was inserted into the right radial artery and maintained on heparinized flush.Using coaxial technique, a 5-Fr Angled Salomon catheter was advanced into the subclavian, back-bled,and flushed in the usual fashion. Using coaxial technique, the catheter was advanced into the innominate artery, confirming the location with fluoroscopy, and with the aid of the roadmapping, digital fl uoroscopy, and careful guidewire manipulation the left vertebral, left common carotid, left internalcarotid, right common carotid, and right vertebral arteries were catheterized. Upon each successive selective catheterization, digital subtraction angiography using the appropriate rate and volume of co ntrast in multiple projections was performed. The catheter was removed. The sheath was removed and hemostasis was achieved with a TR band. The patient tolerated the procedure well and was taken back topostoperative area for recovery. 3-dimensional angiogram was performed and processed on an independent workstation. These images were reviewed by Dr. Rollins separately. FINDINGS: LEFT VERTEBRAL ARTERY (DSA - PA, LATERAL, OBLIQUE - HEAD) The left vertebral artery is patent without significant stenotic lesion. The basilar artery shows no significant abnormality. There is symmetric caudal regression of thebasilar artery. There is no contrast reflux into the right vertebral artery. 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 No aneurysms, vascular malformations, or stenotic lesions are noted in the vertebrobasilar system. The venous phase shows patent bilateral transverse and sigmoid sinuses. LEFT COMMONCAROTID ARTERY (DSA - PA, LATERAL - CERVICAL) The origins of the left internal and external carotid arteries are widely patent without evidence of ulceration or stenosis. LEFT INTERNAL CAROTID ARTERY (DSA - PA, LATERAL, 3D- ROTATIONAL - HEAD) The previously seen inferiorly projecting aneurysm at the left MCA bifurcation is completely occluded by the coil mass. There is spontaneous crossfilling across the anterior communicating artery. There is a medium size posterior communicating artery. No other significant abnormalities are seen in the capillary and venous phases. The venous phase demonstrates patent transverse and sigmoid sinuses. RIGHT COMMON CAROTID ARTERY (DSA - PA, LATERAL - CERVICAL) The origins of the right internal and external carotid arteries are widely patent without evidence of ulceration or stenosis. RIGHT COMMON CAROTID ARTERY (DSA - PA, LATERAL, OBLIQUE - HEAD) There is a medium size posterior communicating artery. There is no crossfilling across the anterior communicating artery. No vascular malformation or arteriovenous shunting is noted. No stenosis or vasospasm is observed. No significant abnormalities are seen in the capillary and venous phases. The venous phase demonstrates patent transverse and sigmoid sinuses. RIGHT VERTEBRAL ARTERY (DSA - PA, LATERAL, OBLIQUE - CERVICAL) The right vertebral artery has a normal course and appearance. Muscular branches arising from the distal segments are visualized. There is no arteriovenous shunting nor vascular malformations. Cross-filling into the left vertebral artery retrograde to the level of the left posterior inferior cerebellar arteries is visualized. 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 No aneurysms, vascular malformations, or stenotic lesions are noted in the vertebrobasilar system. The venous phase shows patent bilateral transverse and sigmoid sinuses. SUPERVISION AND INTERPRETATION: Angiographic study demonstrates: 1. Complete treatment of previously coil embolized left MCA bifurcation aneurysm No immediatetechnical or clinical complications. Signed: Dev Rollins MDReport Verified Date/Time: 11/05/2019 12:23:07 Reading Location: [facility] Y026 Neuro Angio Reading Room BASIC METABOLIC [id number] 12:18:00 Test Item Value Reference Range Interpretation Comments SODIUM (BEAKER) 140 meq/L 136-145 (test code = 381) POTASSIUM (BEAKER) 4.1 meq/L 3.5-5.1 Specimen slightly (test code = 379) hemolyzed CHLORIDE (BEAKER) 110 meq/L 98-107 H (test code = 382) CO2 (BEAKER) (test 23 meq/L 22-29 code = 355) BLOOD UREA NITROGEN 17 mg/dL 7-21 (BEAKER) (test code = 354) CREATININE (BEAKER) 0.75 mg/dL 0.57-1.25 Specimen slightly (test code = 358) hemolyzed GLUCOSE RANDOM 90 mg/dL 70-105 (BEAKER) (test code = 652) CALCIUM (BEAKER) 8.9 mg/dL 8.4-10.2 (test code = 697) EGFR (BEAKER) (test 94 mL/min/1.73 ESTIMA ABBIE GFR IS code = 1092) sq m NOT ACCURATE CREATININE CLEARANCE IN PREDICTING GLOMERULAR FILTRATION RATE . ESTIMATED GFR I S NOT APPLICABLE FOR DIALYSIS PATIEN TS. Community Fundraiser ID - GEETHA [id number] 10:33:00 Test Item Value Reference Range Interpretation Comments PROTIME (BEAKER) (test code = 12.5 seconds 11.9-14.2 759) INR (BEAKER) (test code = 370) 1.0 <=5.9 PARTIAL THROMBOPLASTIN TIME 27.3 seconds 22.5-36.0 (BEAKER) (test code = 760) Effective 02/20/2019: PT Reference Range ChangeNew: 11.9-14.2 Previous: 11.7- 14.7RECOMMENDED COUMADIN/WARFARIN INR THERAPY RANGESSTANDARD DOSE: 2.0-3.0 Includes: PROPHYLAXIS for venous thrombosis, systemic embolization; TREATMENT for venous thrombosis and/or pulmonary embolus.HIGH RISK: Target INR is 2.5-3.5 for patients wiht mechanical heart valves.CBC W/PLT COUNT & AUTO [id number] 10:26:00 Test Item Value Reference Range Interpretation Comments WHITE BLOOD CELL COUNT (BEAKER) 4.4 K/ L 3.5-10.5 (test code = 775) RED BLOOD CELL COUNT (BEAKER) 4.02 M/ L 3.93-5.22 (test code = 761) HEMOGLOBIN (BEAKER) (test code = 12.6 GM/DL 11.2-15.7 410) HEMATOCRIT (BEAKER) (test code = 38.5 % 34.1-44.9 411) MEAN CORPUSCULAR VOLUME (BEAKER) 95.8 fL 79.4-94.8 H (test code = 753) MEAN CORPUSCULAR HEMOGLOBIN 31.3 pg 25.6-32.2 (BEAKER) (test code = 751) MEAN CORPUSCULAR HEMOGLOBIN CONC 32.7 GM/DL 32.2-35.5 (BEAKER) (test code = 752) RED CELL DISTRIBUTION WIDTH 12.1 % 11.7-14.4 (BEAKER) (test code = 412) PLATELET COUNT (BEAKER) (test 250 K/CU MM 150-450 code = 756) MEAN PLATELET VOLUME (BEAKER) 11.5 fL 9.4-12.3 (test code = 754) NUCLEATED RED BLOOD CELLS 0 /100 WBC 0-0 (BEAKER) (test code = 413) NEUTROPHILS RELATIVE PERCENT 57 % (BEAKER) (test code = 429) LYMPHOCYTES RELATIVE PERCENT 32 % (BEAKER) (test code = 430) MONOCYTES RELATIVE PERCENT 8 % (BEAKER) (test code = 431) EOSINOPHILS RELATIVE PERCENT 3 % (BEAKER) (test code = 432) BASOPHILS RELATIVE PERCENT 1 % (BEAKER) (test code = 437) NEUTROPHILS ABSOLUTE COUNT 2.48 K/ L 1.56-6.13 (BEAKER) (test code = 670) LYMPHOCYTES ABSOLUTE COUNT 1.38 K/ L 1.18-3.74 (BEAKER) (test code = 414) MONOCYTES ABSOLUTE COUNT (BEAKER) 0.33 K/ L 0.24-0.36 (test code = 415) EOSINOPHILS ABSOLUTE COUNT 0.12 K/ L 0.04-0.36 (BEAKER) (test code = 416) BASOPHILS ABSOLUTE COUNT (BEAKER) 0.03 K/ L 0.01-0.08 (test code = 417) IMMATURE GRANULOCYTES-RELATIVE 0 % 0-1 PERCENT (BEAKER) (test code = 2801) CT, BRAIN, WITHOUT [id number] 12:01:00Reason for exam:->LOSS OF CONSCIOUSNESSReason for exam:->h/o aneurysm coiling this weekIs the patient ?->NoWhat is the patient's sedation requirement?->No SedationFINAL REPORT CT Head without contrast CLINICAL HISTORY: Syncope/faintingLOSS OFCONSCIOUSNESSh/o aneurysm coiling this week TECHNIQUE: Contiguous axial CT images through the head without contrast. This exam was performed according to the departmental dose optimization program which includes automated exposure control, adjustment of the mA and/or kV according to the patient size, and/or use of an iterative reconstruction technique. COMPARISON: 04/22/2019 FINDINGS: Left sylvian fissure region aneurysm coil pack is again seen. Allowing for local metallic streak effect, previous subarachnoid hemorrhage appears to have resolved. Intraventricular hemorrhage has nearly completely resolved, and the temporal horns have decreased in size. There is no definitive CT evidence for acute infarct. There is no midline shift. There are no extra-axial fluid collections. The skull is intact. Thevisualized paranasal sinuses are well-aerated. IMPRESSION: Since 04/22/2019, left MCA region aneurysm coil pack again seen with decreased subarachnoid and intraventricular hemorrhage and decreased size of the temporal horns. Signed: Kika Upton MDReport Verified Date/Time: 05/01/2019 12:01:44 ReadingLocation: [facility] B1 C013V Neuro Reading Room BASI METABOLIC [id number] 07:25:00 Test Item Value Reference Range Interpretation Comments SODIUM (BEAKER) 134 meq/L 136-145 L (test code = 381) POTASSIUM (BEAKER) 4.1 meq/L 3.5-5.1 (test code = 379) CHLORIDE (BEAKER) 104 meq/L 98-107 (test code = 382) CO2 (BEAKER) (test 24 meq/L 22-29 code = 355) BLOOD UREA NITROGEN 18 mg/dL 7-21 (BEAKER) (test code = 354) CREATININE (BEAKER) 0.76 mg/dL 0.57-1.25 (test code = 358) GLUCOSE RANDOM 104 mg/dL 70-105 (BEAKER) (test code = 652) CALCIUM (BEAKER) 9.0 mg/dL 8.4-10.2 (test code = 697) EGFR (BEAKER) (test 93 mL/min/1.73 ESTIMA ABBIE GFR IS code = 1092) sq m NOT ACCURATE CREATININE CLEARANCE IN PREDICTING GLOMERULAR FILTRATION RATE . ESTIMATED GFR I S NOT APPLICABLE FOR DIALYSIS PATIEN TS. CBC W/PLT COUNT & AUTO [id number] 05:42:00 Test Item Value Reference Range Interpretation Comments WHITE BLOOD CELL COUNT (BEAKER) 8.0 K/ L 3.5-10.5 (test code = 775) RED BLOOD CELL COUNT (BEAKER) 3.87 M/ L 3.93-5.22 L (test code = 761) HEMOGLOBIN (BEAKER) (test code = 12.3 GM/DL 11.2-15.7 410) HEMATOCRIT (BEAKER) (test code = 36.6 % 34.1-44.9 411) MEAN CORPUSCULAR VOLUME (BEAKER) 94.6 fL 79.4-94.8 (test code = 753) MEAN CORPUSCULAR HEMOGLOBIN 31.8 pg 25.6-32.2 (BEAKER) (test code = 751) MEAN CORPUSCULAR HEMOGLOBIN CONC 33.6 GM/DL 32.2-35.5 (BEAKER) (test code = 752) RED CELL DISTRIBUTION WIDTH 11.8 % 11.7-14.4 (BEAKER) (test code = 412) PLATELET COUNT (BEAKER) (test 234 K/CU MM 150-450 code = 756) MEAN PLATELET VOLUME (BEAKER) 11.4 fL 9.4-12.3 (test code = 754) NUCLEATED RED BLOOD CELLS 0 /100 WBC 0-0 (BEAKER) (test code = 413) NEUTROPHILS RELATIVE PERCENT 67 % (BEAKER) (test code = 429) LYMPHOCYTES RELATIVE PERCENT 20 % (BEAKER) (test code = 430) MONOCYTES RELATIVE PERCENT 10 % (BEAKER) (test code = 431) EOSINOPHILS RELATIVE PERCENT 3 % (BEAKER) (test code = 432) BASOPHILS RELATIVE PERCENT 0 % (BEAKER) (test code = 437) NEUTROPHILS ABSOLUTE COUNT 5.31 K/ L 1.56-6.13 (BEAKER) (test code = 670) LYMPHOCYTES ABSOLUTE COUNT 1.59 K/ L 1.18-3.74 (BEAKER) (test code = 414) MONOCYTES ABSOLUTE COUNT (BEAKER) 0.78 K/ L 0.24-0.36 H (test code = 415) EOSINOPHILS ABSOLUTE COUNT 0.25 K/ L 0.04-0.36 (BEAKER) (test code = 416) BASOPHILS ABSOLUTE COUNT (BEAKER) 0.02 K/ L 0.01-0.08 (test code = 417) IMMATURE GRANULOCYTES-RELATIVE 0 % 0-1 PERCENT (BEAKER) (test code = 2801) NV, ANGIOGRAM, [id number] 10:59:00Reason for exam:->SAHFINAL REPORT DATE OF SERVICE: 04/21/2019 1:24 PM SURGEON: Dev Rollins MD CASH APPLICATIONS ANALYST: Lea Bonilla MD PREOPERATIVE DIAGNOSIS: Left MCA bifurcation aneurysm POSTOPERATIVE DIAGNOSIS: Left MCA bifurcation aneurysm sp successful coil embolization OPERATION: 1) Cerebral Angiogram2) 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 Neetu Cowart is a 23 year old female who presented to an outside hospital with acute onset worst headache of life with associated nausea and emesis. CT head showed subarachnoid blood in the left sylvian fissure, CTA negative. She was transferred to [facility] for further management, and presents for diagnostic angiogram with possible treatment. PROCEDURE: Following explanationof the benefits, risks and alternatives for the procedure, informed consent was obtained from the patient. The risks including but not limited to stroke, intracranial hemorrhage, vascular injury to thecervical or femoral vessels and groin hematoma were discussed with the patient. A time-out was performed. Both groins were prepped in the usual sterile fashion using Chloraprep, and sterilely draped. Asingle wall puncture of the right femoral artery was performed and a 5-Fr short sheath was inserted into the right common femoral artery and maintained on heparinized flush. Using coaxial technique the angled [place] catheter was advanced into the descending aorta then into the aortic arch, and with theaid of the roadmapping, digital fluoroscopy, and careful guidewire manipulation the: Right external carotid, right internal carotid, right vertebral, left common carotid, left internal carotid, left ext ernal carotid, and left vertebral arteries were catheterized. Upon each successive selective catheterization, digital subtraction angiography using the appropriate rate and volume of contrast in multiple projections was performed. 3-dimensional angiogram was performed and processed on an independent w orkstation. These images were reviewed by Dr. Rollins separately. The aneurysm was then coiled as described below. FINDINGS: RIGHT COMMON FEMORAL ARTERY (DSA - PA, LATERAL - ILIAC) The sheath enters above the femoral bifurcation. The femoral artery and bifurcation are widely patent without evidence of ulceration or stenosis. RIGHT COMMON CAROTID ARTERY (DSA - PA, LATERAL - CERVICAL) The origins of the right internal and external carotid arteries are widely patent without evidence of ulceration or stenosis. RIGHT EXTERNAL CAROTID ARTERY (DSA - PA, LATERAL- HEAD) The visualized portions of the external carotid artery and its branches are normal without evidence of ulceration or stenosis. This includes th e distal ascending pharyngeal artery superficial temporal artery and the proximal portions of the internal maxillary artery and the occipital artery. There is no evidence of arteriovenous shunting. Thevenous phase is normal. RIGHT INTERNAL CAROTID ARTERY (DSA - PA, LATERAL, OBLIQUE - HEAD) There is alarge size posterior communicating artery. There is minimal crossfilling across the anterior communicating artery with opacification of the distal left anterior cerebral artery. No vascular malformation or arteriovenous shunting is noted. No stenosis or vasospasm is observed. No significant abnormalities are seen in the capillary and venous phases. The venous phase demonstrates patent transverse and sigmoid sinuses. RIGHT VERTEBRAL ARTERY (DSA - PA, LATERAL, OBLIQUE - CERVICAL) The right vertebral artery has a normal course and appearance. Muscular branches arising from the distal segments are visualized. There is no arteriovenous shunting nor vascular malformations. Cross-filling into the left vertebral artery retrograde to the level of the left posterior inferior cerebellar arteries is visualized. 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 No aneurysms, vascular malformations, or stenotic lesions are noted in the vertebrobasilar system. The venous phase shows patent bilateral transverse and sigmoid sinuses. LEFT COMMON CAROTID ARTERY (DSA - PA, LATERAL - CERVICAL) The origins of the left internal and external carotid arteries are widely patent without evidence of ulceration or stenosis. LEFT EXTERNAL CAROTID ARTERY (DSA - PA, LATERAL- HEAD) The visualized portions of the external carotid artery and its branches are normal without evidence of ulceration or stenosis. There is normal physiolo gical filling of the large distal branches of the external carotid artery, including the occipital artery internal maxillary artery superficial temporal artery and middle meningeal arteries. There is no evidence of arteriovenous shunting. The venous phase is normal. LEFT INTERNAL CAROTID ARTERY (DSA -PA, LATERAL, OBLIQUE , 3D- HEAD) There is a 2.3mm x 1.6mm inferiorly projecting aneurysm at the leftMCA bifurcation. There is spontaneous crossfilling across the anterior communicating artery with opacification of the distal right anterior cerebral artery territory. There is a medium size posterior co mmunicating artery. No other significant abnormalities are seen in the capillary and venous phases. The venous phase demonstrates patent transverse and sigmoid sinuses. LEFT SUBCLAVIAN ARTERY (ROADMAP - PA - CERVICAL) The origin of the left vertebral artery is patent without significant stenosis. LEFTVERTEBRAL ARTERY (DSA - PA, LATERAL, OBLIQUE - HEAD) The left vertebral artery is dominant, patent without significant stenotic lesion. The basilar artery shows no significant abnormality. There is symmetric caudal regression of the basilar artery. There is contrast reflux into the right vertebral artery with opacification of the right posterior inferior cerebellar artery. 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 No aneurysms, vascular malformations, or stenotic lesions are noted in the vertebrobasilar system. The venous phase shows patent bilateral transverse and sigmoid sinuses. ENDOVASCULAR TREATMENT: Aneurysm appeared amenable to endovascular treatment of our angles for treatment with the head in a neutral position. We performed an exchange maneuver in the left external carotid artery with an exchange length glide wire, removing the diagnostic catheter and sheath and inserting an Infinity long sheath over a VTK catheter into the proximal internal carotid artery. Using continuous fluoroscopy and roadmap guidance, a 3mm Transform balloon was advanced over a Synchro standard microwire into one of the proximal M2 branches. Next an [place] 10 microcatheter was advanced over a Synchro 10 microwire also through the Infinity sheath, into the left MCA, and carefully into the dome of the aneurysm. Next a Target 360 Sally 2mm x 4mm coil was advanced into the aneurysm. The balloon was inflated under fluoroscopic visualization while the coil was deployed. The balloon was deflated and injection showed no vessel occlusion or untoward events. The coil was detached, and visualized in appropriate position with no residual aneurysm. A microcatheter injection showed normal filling of all left MCA vessels and territories. The microcatheters were removed, and another DSA was obtained from the left internal carotid artery showing no untoward events, and aneurysm occlusion. Whole head PA and lateral angiogram demonstrated no untoward findings and wide patency of all of the afferent and efferent vessels. The femoral sheath was removed and hemostasis was achieved with a 6-Urdu AngioSeal closure device.The patient tolerated the procedure well and was taken to NICU in stable condition. SUPERVISION AND INTERPRETATION: Angiographic study demonstrates: 1. Inferiorly projection 2.3mm x 1.6mm MCA bifurcation aneurysm 2. Successful coil embolization of above aneurysm with complete occlusion. 3. No immediate technical or clinical complications. Signed: Dev Rollins Verified Date/Time: 04/26/2019 10:59:46 Reading Location: [facility] Y026 Neuro Angio Reading Room [id number] 05:04:00 Test Item Value Reference Range Interpretation Comments PHOSPHORUS (BEAKER) (test code = 4.5 mg/dL 2.3-4.7 604) [id number] 05:04:00 Test Item Value Reference Range Interpretation Comments MAGNESIUM (BEAKER) (test code = 1.8 mg/dL 1.6-2.6 627) BASIC METABOLIC [id number] 05:04:00 Test Item Value Reference Range Interpretation Comments SODIUM (BEAKER) 137 meq/L 136-145 (test code = 381) POTASSIUM (BEAKER) 4.2 meq/L 3.5-5.1 (test code = 379) CHLORIDE (BEAKER) 105 meq/L 98-107 (test code = 382) CO2 (BEAKER) (test 24 meq/L 22-29 code = 355) BLOOD UREA NITROGEN 16 mg/dL 7-21 (BEAKER) (test code = 354) CREATININE (BEAKER) 0.79 mg/dL 0.57-1.25 (test code = 358) GLUCOSE RANDOM 109 mg/dL 70-105 H (BEAKER) (test code = 652) CALCIUM (BEAKER) 9.5 mg/dL 8.4-10.2 (test code = 697) EGFR (BEAKER) (test 89 mL/min/1.73 ESTIMA ABBIE GFR IS code = 1092) sq m NOT ACCURATE CREATININE CLEARANCE IN PREDICTING GLOMERULAR FILTRATION RATE . ESTIMATED GFR I S NOT APPLICABLE FOR DIALYSIS PATIEN TS. CBC W/PLT COUNT & AUTO [id number] 04:41:00 Test Item Value Reference Range Interpretation Comments WHITE BLOOD CELL COUNT (BEAKER) 6.9 K/ L 3.5-10.5 (test code = 775) RED BLOOD CELL COUNT (BEAKER) 4.24 M/ L 3.93-5.22 (test code = 761) HEMOGLOBIN (BEAKER) (test code = 13.4 GM/DL 11.2-15.7 410) HEMATOCRIT (BEAKER) (test code = 39.7 % 34.1-44.9 411) MEAN CORPUSCULAR VOLUME (BEAKER) 93.6 fL 79.4-94.8 (test code = 753) MEAN CORPUSCULAR HEMOGLOBIN 31.6 pg 25.6-32.2 (BEAKER) (test code = 751) MEAN CORPUSCULAR HEMOGLOBIN CONC 33.8 GM/DL 32.2-35.5 (BEAKER) (test code = 752) RED CELL DISTRIBUTION WIDTH 11.7 % 11.7-14.4 (BEAKER) (test code = 412) PLATELET COUNT (BEAKER) (test 244 K/CU MM 150-450 code = 756) MEAN PLATELET VOLUME (BEAKER) 11.0 fL 9.4-12.3 (test code = 754) NUCLEATED RED BLOOD CELLS 0 /100 WBC 0-0 (BEAKER) (test code = 413) NEUTROPHILS RELATIVE PERCENT 67 % (BEAKER) (test code = 429) LYMPHOCYTES RELATIVE PERCENT 20 % (BEAKER) (test code = 430) MONOCYTES RELATIVE PERCENT 8 % (BEAKER) (test code = 431) EOSINOPHILS RELATIVE PERCENT 5 % (BEAKER) (test code = 432) BASOPHILS RELATIVE PERCENT 1 % (BEAKER) (test code = 437) NEUTROPHILS ABSOLUTE COUNT 4.58 K/ L 1.56-6.13 (BEAKER) (test code = 670) LYMPHOCYTES ABSOLUTE COUNT 1.36 K/ L 1.18-3.74 (BEAKER) (test code = 414) MONOCYTES ABSOLUTE COUNT (BEAKER) 0.55 K/ L 0.24-0.36 H (test code = 415) EOSINOPHILS ABSOLUTE COUNT 0.33 K/ L 0.04-0.36 (BEAKER) (test code = 416) BASOPHILS ABSOLUTE COUNT (BEAKER) 0.04 K/ L 0.01-0.08 (test code = 417) IMMATURE GRANULOCYTES-RELATIVE 0 % 0-1 PERCENT (BEAKER) (test code = 2801) [id number] 05:40:00 Test Item Value Reference Range Interpretation Comments PHOSPHORUS (BEAKER) (test code = 4.7 mg/dL 2.3-4.7 604) [id number] 05:40:00 Test Item Value Reference Range Interpretation Comments MAGNESIUM (BEAKER) (test code = 1.7 mg/dL 1.6-2.6 627) BASIC METABOLIC [id number] 05:40:00 Test Item Value Reference Range Interpretation Comments SODIUM (BEAKER) 139 meq/L 136-145 (test code = 381) POTASSIUM (BEAKER) 4.0 meq/L 3.5-5.1 (test code = 379) CHLORIDE (BEAKER) 106 meq/L 98-107 (test code = 382) CO2 (BEAKER) (test 22 meq/L 22-29 code = 355) BLOOD UREA NITROGEN 16 mg/dL 7-21 (BEAKER) (test code = 354) CREATININE (BEAKER) 0.78 mg/dL 0.57-1.25 (test code = 358) GLUCOSE RANDOM 106 mg/dL 70-105 H (BEAKER) (test code = 652) CALCIUM (BEAKER) 9.4 mg/dL 8.4-10.2 (test code = 697) EGFR (BEAKER) (test 91 mL/min/1.73 ESTIMA ABBIE GFR IS code = 1092) sq m NOT ACCURATE CREATININE CLEARANCE IN PREDICTING GLOMERULAR FILTRATION RATE . ESTIMATED GFR I S NOT APPLICABLE FOR DIALYSIS PATIEN TS. CBC W/PLT COUNT & AUTO [id number] 04:11:00 Test Item Value Reference Range Interpretation Comments WHITE BLOOD CELL COUNT (BEAKER) 6.8 K/ L 3.5-10.5 (test code = 775) RED BLOOD CELL COUNT (BEAKER) 4.08 M/ L 3.93-5.22 (test code = 761) HEMOGLOBIN (BEAKER) (test code = 12.8 GM/DL 11.2-15.7 410) HEMATOCRIT (BEAKER) (test code = 38.4 % 34.1-44.9 411) MEAN CORPUSCULAR VOLUME (BEAKER) 94.1 fL 79.4-94.8 (test code = 753) MEAN CORPUSCULAR HEMOGLOBIN 31.4 pg 25.6-32.2 (BEAKER) (test code = 751) MEAN CORPUSCULAR HEMOGLOBIN CONC 33.3 GM/DL 32.2-35.5 (BEAKER) (test code = 752) RED CELL DISTRIBUTION WIDTH 11.9 % 11.7-14.4 (BEAKER) (test code = 412) PLATELET COUNT (BEAKER) (test 242 K/CU MM 150-450 code = 756) MEAN PLATELET VOLUME (BEAKER) 11.4 fL 9.4-12.3 (test code = 754) NUCLEATED RED BLOOD CELLS 0 /100 WBC 0-0 (BEAKER) (test code = 413) NEUTROPHILS RELATIVE PERCENT 69 % (BEAKER) (test code = 429) LYMPHOCYTES RELATIVE PERCENT 19 % (BEAKER) (test code = 430) MONOCYTES RELATIVE PERCENT 7 % (BEAKER) (test code = 431) EOSINOPHILS RELATIVE PERCENT 4 % (BEAKER) (test code = 432) BASOPHILS RELATIVE PERCENT 0 % (BEAKER) (test code = 437) NEUTROPHILS ABSOLUTE COUNT 4.71 K/ L 1.56-6.13 (BEAKER) (test code = 670) LYMPHOCYTES ABSOLUTE COUNT 1.28 K/ L 1.18-3.74 (BEAKER) (test code = 414) MONOCYTES ABSOLUTE COUNT (BEAKER) 0.49 K/ L 0.24-0.36 H (test code = 415) EOSINOPHILS ABSOLUTE COUNT 0.26 K/ L 0.04-0.36 (BEAKER) (test code = 416) BASOPHILS ABSOLUTE COUNT (BEAKER) 0.03 K/ L 0.01-0.08 (test code = 417) IMMATURE GRANULOCYTES-RELATIVE 0 % 0-1 PERCENT (BEAKER) (test code = 2801) POCT-GLUCOSE [id number] 11:50:00 Test Item Value Reference Range Interpretation Comments POC-GLUCOSE METER 109 mg/dL 70-110 TESTED AT [facility] 6720 (BEAKER) (test code = [place] 1538) [id number] POCT-GLUCOSE [id number] 11:50:00 Test Item Value Reference Range Interpretation Comments POC-GLUCOSE METER 140 mg/dL 70-110 H TESTED AT [facility] 6720 (BEAKER) (test code = [place] 1538) [id number] 05:18:00 Test Item Value Reference Range Interpretation Comments PHOSPHORUS (BEAKER) (test code = 4.5 mg/dL 2.3-4.7 604) [id number] 05:18:00 Test Item Value Reference Range Interpretation Comments MAGNESIUM (BEAKER) (test code = 1.8 mg/dL 1.6-2.6 627) BASIC METABOLIC [id number] 05:18:00 Test Item Value Reference Range Interpretation Comments SODIUM (BEAKER) 140 meq/L 136-145 (test code = 381) POTASSIUM (BEAKER) 4.0 meq/L 3.5-5.1 (test code = 379) CHLORIDE (BEAKER) 110 meq/L 98-107 H (test code = 382) CO2 (BEAKER) (test 24 meq/L 22-29 code = 355) BLOOD UREA NITROGEN 15 mg/dL 7-21 (BEAKER) (test code = 354) CREATININE (BEAKER) 0.80 mg/dL 0.57-1.25 (test code = 358) GLUCOSE RANDOM 99 mg/dL 70-105 (BEAKER) (test code = 652) CALCIUM (BEAKER) 8.8 mg/dL 8.4-10.2 (test code = 697) EGFR (BEAKER) (test 88 mL/min/1.73 ESTIMA ABBIE GFR IS code = 1092) sq m NOT ACCURATE CREATININE CLEARANCE IN PREDICTING GLOMERULAR FILTRATION RATE . ESTIMATED GFR I S NOT APPLICABLE FOR DIALYSIS PATIEN TS. CBC W/PLT COUNT & AUTO [id number] 03:59:00 Test Item Value Reference Range Interpretation Comments WHITE BLOOD CELL COUNT (BEAKER) 6.5 K/ L 3.5-10.5 (test code = 775) RED BLOOD CELL COUNT (BEAKER) 3.74 M/ L 3.93-5.22 L (test code = 761) HEMOGLOBIN (BEAKER) (test code = 11.6 GM/DL 11.2-15.7 410) HEMATOCRIT (BEAKER) (test code = 35.7 % 34.1-44.9 411) MEAN CORPUSCULAR VOLUME (BEAKER) 95.5 fL 79.4-94.8 H (test code = 753) MEAN CORPUSCULAR HEMOGLOBIN 31.0 pg 25.6-32.2 (BEAKER) (test code = 751) MEAN CORPUSCULAR HEMOGLOBIN CONC 32.5 GM/DL 32.2-35.5 (BEAKER) (test code = 752) RED CELL DISTRIBUTION WIDTH 12.2 % 11.7-14.4 (BEAKER) (test code = 412) PLATELET COUNT (BEAKER) (test 199 K/CU MM 150-450 code = 756) MEAN PLATELET VOLUME (BEAKER) 11.5 fL 9.4-12.3 (test code = 754) NUCLEATED RED BLOOD CELLS 0 /100 WBC 0-0 (BEAKER) (test code = 413) NEUTROPHILS RELATIVE PERCENT 57 % (BEAKER) (test code = 429) LYMPHOCYTES RELATIVE PERCENT 30 % (BEAKER) (test code = 430) MONOCYTES RELATIVE PERCENT 8 % (BEAKER) (test code = 431) EOSINOPHILS RELATIVE PERCENT 5 % (BEAKER) (test code = 432) BASOPHILS RELATIVE PERCENT 1 % (BEAKER) (test code = 437) NEUTROPHILS ABSOLUTE COUNT 3.66 K/ L 1.56-6.13 (BEAKER) (test code = 670) LYMPHOCYTES ABSOLUTE COUNT 1.92 K/ L 1.18-3.74 (BEAKER) (test code = 414) MONOCYTES ABSOLUTE COUNT (BEAKER) 0.52 K/ L 0.24-0.36 H (test code = 415) EOSINOPHILS ABSOLUTE COUNT 0.32 K/ L 0.04-0.36 (BEAKER) (test code = 416) BASOPHILS ABSOLUTE COUNT (BEAKER) 0.03 K/ L 0.01-0.08 (test code = 417) IMMATURE GRANULOCYTES-RELATIVE 0 % 0-1 PERCENT (BEAKER) (test code = 2801) POCT-GLUCOSE [id number] 21:48:00 Test Item Value Reference Range Interpretation Comments POC-GLUCOSE METER 104 mg/dL 70-110 TESTED AT [facility] ([facility]) (test code = [place] 1538) [id number] POCT-GLUCOSE [id number] 18:14:00 Test Item Value Reference Range Interpretation Comments POC-GLUCOSE METER 111 mg/dL 70-110 H TESTED AT [facility] ([facility]) (test code = [place] 1538) [address] [id number] 13:29:00 Test Item Value Reference Range Interpretation Comments MAGNESIUM (BEAKER) 2.1 mg/dL 1.6-2.6 Specimen slightly (test code = 627) hemolyzed [id number] 13:29:00 Test Item Value Reference Range Interpretation Comments POTASSIUM (BEAKER) 4.0 meq/L 3.5-5.1 Specimen slightly (test code = 379) hemolyzed POCT-GLUCOSE [id number] 11:41:00 Test Item Value Reference Range Interpretation Comments POC-GLUCOSE METER 90 mg/dL 70-110 TESTED AT [facility] [address] ([facility]) (test code = [place] [facility] [address] 1538) [id number] 04:48:00 Test Item Value Reference Range Interpretation Comments PHOSPHORUS (BEAKER) (test code = 3.2 mg/dL 2.3-4.7 604) [id number] 04:48:00 Test Item Value Reference Range Interpretation Comments MAGNESIUM (BEAKER) (test code = 1.9 mg/dL 1.6-2.6 627) BASIC METABOLIC [id number] 04:48:00 Test Item Value Reference Range Interpretation Comments SODIUM (BEAKER) 140 meq/L 136-145 (test code = 381) POTASSIUM (BEAKER) 3.7 meq/L 3.5-5.1 (test code = 379) CHLORIDE (BEAKER) 110 meq/L 98-107 H (test code = 382) CO2 (BEAKER) (test 25 meq/L 22-29 code = 355) BLOOD UREA NITROGEN 9 mg/dL 7-21 (BEAKER) (test code = 354) CREATININE (BEAKER) 0.73 mg/dL 0.57-1.25 (test code = 358) GLUCOSE RANDOM 114 mg/dL 70-105 H (BEAKER) (test code = 652) CALCIUM (BEAKER) 8.7 mg/dL 8.4-10.2 (test code = 697) EGFR (BEAKER) (test 98 mL/min/1.73 ESTIMA ABBIE GFR IS code = 1092) sq m NOT ACCURATE CREATININE CLEARANCE IN PREDICTING GLOMERULAR FILTRATION RATE . ESTIMATED GFR I S NOT APPLICABLE FOR DIALYSIS PATIEN TS. CBC W/PLT COUNT & AUTO [id number] 04:20:00 Test Item Value Reference Range Interpretation Comments WHITE BLOOD CELL COUNT (BEAKER) 8.4 K/ L 3.5-10.5 (test code = 775) RED BLOOD CELL COUNT (BEAKER) 3.83 M/ L 3.93-5.22 L (test code = 761) HEMOGLOBIN (BEAKER) (test code = 12.0 GM/DL 11.2-15.7 410) HEMATOCRIT (BEAKER) (test code = 36.6 % 34.1-44.9 411) MEAN CORPUSCULAR VOLUME (BEAKER) 95.6 fL 79.4-94.8 H (test code = 753) MEAN CORPUSCULAR HEMOGLOBIN 31.3 pg 25.6-32.2 (BEAKER) (test code = 751) MEAN CORPUSCULAR HEMOGLOBIN CONC 32.8 GM/DL 32.2-35.5 (BEAKER) (test code = 752) RED CELL DISTRIBUTION WIDTH 12.5 % 11.7-14.4 (BEAKER) (test code = 412) PLATELET COUNT (BEAKER) (test 218 K/CU MM 150-450 code = 756) MEAN PLATELET VOLUME (BEAKER) 11.3 fL 9.4-12.3 (test code = 754) NUCLEATED RED BLOOD CELLS 0 /100 WBC 0-0 (BEAKER) (test code = 413) NEUTROPHILS RELATIVE PERCENT 75 % (BEAKER) (test code = 429) LYMPHOCYTES RELATIVE PERCENT 15 % (BEAKER) (test code = 430) MONOCYTES RELATIVE PERCENT 8 % (BEAKER) (test code = 431) EOSINOPHILS RELATIVE PERCENT 1 % (BEAKER) (test code = 432) BASOPHILS RELATIVE PERCENT 0 % (BEAKER) (test code = 437) NEUTROPHILS ABSOLUTE COUNT 6.33 K/ L 1.56-6.13 H (BEAKER) (test code = 670) LYMPHOCYTES ABSOLUTE COUNT 1.27 K/ L 1.18-3.74 (BEAKER) (test code = 414) MONOCYTES ABSOLUTE COUNT (BEAKER) 0.64 K/ L 0.24-0.36 H (test code = 415) EOSINOPHILS ABSOLUTE COUNT 0.11 K/ L 0.04-0.36 (BEAKER) (test code = 416) BASOPHILS ABSOLUTE COUNT (BEAKER) 0.02 K/ L 0.01-0.08 (test code = 417) IMMATURE GRANULOCYTES-RELATIVE 0 % 0-1 PERCENT (AKER) (test code = 2801) POCT-GLUCOSE [id number] 23:50:00 Test Item Value Reference Range Interpretation Comments POC-GLUCOSE METER 102 mg/dL 70-110 TESTED AT [place] [address] ([facility]) (test code = [facility] 1538) [address] CT, BRAIN, WITHOUT [id number] 20:17:00FINAL REPORT CT, BRAIN, WITHOUT CONTRAST CLINICAL INDICATION: SAH, proven, follow-up COMPARISON: April 21, 2019 TECHNIQUE: Noncontrast axial CT imaging of the brain and skull. DOSE REDUCTION: Dose modulation, iterative reconstruction, and/or weight-based adjustment of the mA/kV wasutilized to reduce the radiation dose to as low as reasonably achievable. FINDINGS:Decreasing volumeof subarachnoid blood with minimal residual blood in the lateral ventricles. Status post embolic coil ing of the left MCA aneurysm. No infarct is identified. There is no visible parenchymal hemorrhage. Midline is normally positioned. No ventriculomegaly is present. IMPRESSION: No adverse postproceduralfindings following coil embolization of left middle cerebral artery aneurysm. Minimal intraventricular blood remains without hydrocephalus. Signed: JR Gino, Stuart Flores Verified Date/Time:04/22/2019 20:17:33 Reading Location: [address] Neuro Reading Room POCT-GLUCOSE [id number] 18:33:00 Test Item Value Reference Range Interpretation Comments POC-GLUCOSE METER 103 mg/dL 70-110 TESTED AT [facility] [address] ([facility]) (test code = [facility] 1538) [address] BASIC METABOLIC [id number] 18:29:00 Test Item Value Reference Range Interpretation Comments SODIUM (BEAKER) 142 meq/L 136-145 (test code = 381) POTASSIUM (BEAKER) 3.9 meq/L 3.5-5.1 (test code = 379) CHLORIDE (BEAKER) 113 meq/L 98-107 H (test code = 382) CO2 (BEAKER) (test 25 meq/L - code = 355) BLOOD UREA NITROGEN 10 mg/dL 7-21 (BEAKER) (test code = 354) CREATININE (BEAKER) 0.77 mg/dL 0.57-1.25 (test code = 358) GLUCOSE RANDOM 100 mg/dL 70-105 (BEAKER) (test code = 652) CALCIUM (BEAKER) 8.2 mg/dL 8.4-10.2 L (test code = 697) EGFR (BEAKER) (test 92 mL/min/1.73 ESTIMA ABBIE GFR IS code = 1092) sq m NOT ACCURATE CREATININE CLEARANCE IN PREDICTING GLOMERULAR FILTRATION RATE . ESTIMATED GFR I S NOT APPLICABLE FOR DIALYSIS PATIEN TS. POCT-GLUCOSE [id number] 12:13:00 Test Item Value Reference Range Interpretation Comments POC-GLUCOSE METER 99 mg/dL 70-110 TESTED AT [facility] [address] (BEAKER) (test code = [facility] [address] 1538) POCT-GLUCOSE [id number] 06:40:00 Test Item Value Reference Range Interpretation Comments POC-GLUCOSE METER 105 mg/dL 70-110 TESTED AT [facility] [address] ([facility]) (test code = [facility] 1538) [address] [id number] 04:03:00 Test Item Value Reference Range Interpretation Comments PHOSPHORUS (BEAKER) (test code = 3.0 mg/dL 2.3-4.7 604) [id number] 04:03:00 Test Item Value Reference Range Interpretation Comments MAGNESIUM (BEAKER) (test code = 1.5 mg/dL 1.6-2.6 L 627) BASIC METABOLIC [id number] 04:03:00 Test Item Value Reference Range Interpretation Comments SODIUM (BEAKER) 136 meq/L 136-145 (test code = 381) POTASSIUM (BEAKER) 3.2 meq/L 3.5-5.1 L (test code = 379) CHLORIDE (BEAKER) 106 meq/L 98-107 (test code = 382) CO2 (BEAKER) (test 24 meq/L - code = 355) BLOOD UREA NITROGEN 8 mg/dL 7-21 (BEAKER) (test code = 354) CREATININE (BEAKER) 0.66 mg/dL 0.57-1.25 (test code = 358) GLUCOSE RANDOM 113 mg/dL 70-105 H (BEAKER) (test code = 652) CALCIUM (BEAKER) 8.0 mg/dL 8.4-10.2 L (test code = 697) EGFR (BEAKER) (test 110 mL/min/1.73 ESTIM ATED GFR IS code = 1092) sq m NOT ACCURATE CREATININE CLEARANCE IN PREDICTING GLOMERULAR FILTRATION RATE . ESTIMATED GFR I S NOT APPLICABLE FOR DIALYSIS PATIEN TS. CBC W/PLT COUNT & AUTO [id number] 03:12:00 Test Item Value Reference Range Interpretation Comments WHITE BLOOD CELL COUNT (BEAKER) 11.2 K/ L 3.5-10.5 H (test code = 775) RED BLOOD CELL COUNT (BEAKER) 3.78 M/ L 3.93-5.22 L (test code = 761) HEMOGLOBIN (BEAKER) (test code = 11.8 GM/DL 11.2-15.7 410) HEMATOCRIT (BEAKER) (test code = 35.2 % 34.1-44.9 411) MEAN CORPUSCULAR VOLUME (BEAKER) 93.1 fL 79.4-94.8 (test code = 753) MEAN CORPUSCULAR HEMOGLOBIN 31.2 pg 25.6-32.2 (BEAKER) (test code = 751) MEAN CORPUSCULAR HEMOGLOBIN CONC 33.5 GM/DL 32.2-35.5 (BEAKER) (test code = 752) RED CELL DISTRIBUTION WIDTH 12.1 % 11.7-14.4 (BEAKER) (test code = 412) PLATELET COUNT (BEAKER) (test 210 K/CU MM 150-450 code = 756) MEAN PLATELET VOLUME (BEAKER) 11.5 fL 9.4-12.3 (test code = 754) NUCLEATED RED BLOOD CELLS 0 /100 WBC 0-0 (BEAKER) (test code = 413) NEUTROPHILS RELATIVE PERCENT 82 % (BEAKER) (test code = 429) LYMPHOCYTES RELATIVE PERCENT 11 % (BEAKER) (test code = 430) MONOCYTES RELATIVE PERCENT 7 % (BEAKER) (test code = 431) EOSINOPHILS RELATIVE PERCENT 0 % (BEAKER) (test code = 432) BASOPHILS RELATIVE PERCENT 0 % (BEAKER) (test code = 437) NEUTROPHILS ABSOLUTE COUNT 9.19 K/ L 1.56-6.13 H ([facility]) (test code = 670) LYMPHOCYTES ABSOLUTE COUNT 1.22 K/ L 1.18-3.74 (AKER) (test code = 414) MONOCYTES ABSOLUTE COUNT (BEAKER) 0.74 K/ L 0.24-0.36 H (test code = 415) EOSINOPHILS ABSOLUTE COUNT 0.02 K/ L 0.04-0.36 L (AKER) (test code = 416) BASOPHILS ABSOLUTE COUNT (AKER) 0.02 K/ L 0.01-0.08 (test code = 417) IMMATURE GRANULOCYTES-RELATIVE 0 % 0-1 PERCENT ([facility]) (test code = 2801) POCT-GLUCOSE [id number] 00:38:00 Test Item Value Reference Range Interpretation Comments POC-GLUCOSE METER 120 mg/dL 70-110 H TESTED AT [place] [address] ([facility]) (test code = [place] 1538) [address] [id number] 22:01:00 Test Item Value Reference Range Interpretation Comments ACTIVATED CLOTTING TIME 186 sec TEST ED AT [place] [address] ([facility]) (test code = [place] 441) [address] CT, CTANGIO [id number] 16:31:00 [facility] : 1995 Sex: FFINAL REPORT CT, CTANGIO BRAIN, CT, CAROTID, ANGIOBRAIN CT WITHOUT CON TRAST INDICATION: SAH, proven, follow-up COMPARISON: None available at the time of evaluation. TECHNIQUE:Rapid acquisition spiral images were obtained between the aortic arch and the cranial vertex during intravenous contrast infusion to reconstruct axial images and angiographic 3D maximum intensity projections (MIP). 3-D volumetric reformatted images were created at a dedicated workstation. Precontrast images of the brain were also obtained. Stenosis evaluation reported in compliance with NASCET criteria. DOSE REDUCTION: Dose modulation, iterative reconstruction, and/or weight-based adjustment of the mA/kV was utilized to reduce the radiation dose to as low as reasonably achievable. FINDINGS:CT BRAIN:Cerebral parenchyma: Unremarkable.Midline structures: Normally positioned.Cerebellum and brainstem: Normal.Ventricles: Normal volume.Extra-axial spaces: Small volume subarachnoid blood noted within the left sylvian fissure and along the floor of the anterior cranial fossa. Questionable minimal fluid in the fourth ventricle.Calvarium and skull base: Intact.Paranasal sinuses and mastoid air cells: Visible chambers are clear.Orbital contents: Included portions unremarkable. CTA BRAIN:Internal carotid arteries: Petrous, cavernous and supraclinoid portions patent. Middle cerebral arteries: Left sylvian bifurcation inferior/lateral projecting bilobed aneurysm measuring 3 mm transverse with 2.8 mm neck.Anterior cerebral arteries: Patent. Intact A-comm.Basilar system: Patent vertebrobasilar system.Posterior cerebral arteries:Patent beyond the quadrigeminal segments.Venous opacification: Major dural sinuses unremarkable for bolus timing.Additional findings: None. CTA NECK:Common carotid arteries: The common carotid arteries are normal in size. Bifurcations: No flow-limiting stenosis. Cervical internal carotid arteries: No flow limiting stenosis.Vertebral arteries: Codominant. No origin stenosis.Arch anatomy: Conventional. Nonvascular findings:Osseous structures: No acute osseous abnormality. Intact calvarium and skull base.Cervical soft tissues: No adenopathy. Patent aerodigestive tract.Lung apices: No apical consolidation or pneumothorax. 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 No contour irregularities are present to suggest vasospasm. Otherwise unremarkable CT angiogram of the head and neck. Signed: JR Christian Robert MDReport Verified Date/Time: 04/21/2019 16:31:25 Reading Location: [address] Neuro Reading Room CT, CAROTID, [id number] 16:31:00FINAL REPORT CT, CTANGIO BRAIN, CT, CAROTID, ANGIOBRAIN CT WITHOUT CONTRAST INDICATION: SAH, proven, follow-up COMPARISON: None available at the time of evaluation. TECHNIQUE:Rapidacquisition spiral images were obtained between the aortic arch and the cranial vertex during intravenous contrast infusion to reconstruct axial images and angiographic 3D maximum intensity projections(MIP). 3-D volumetric reformatted images were created at a dedicated workstation. Precontrast imagesof the brain were also obtained. Stenosis evaluation reported in compliance with NASCET criteria. DOSE REDUCTION: Dose modulation, iterative reconstruction, and/or weight-based adjustment of the mA/kV was utilized to reduce the radiation dose to as low as reasonably achievable. FINDINGS:CT BRAIN:Cerebral parenchyma: Unremarkable.Midline structures: Normally positioned.Cerebellum and brainstem: Normal.Ventricles: Normal volume.Extra-axial spaces: Small volume subarachnoid blood noted within the left sylvian fissure and along the floor of the anterior cranial fossa. Questionable minimal fluid in the fourth ventricle.Calvarium and skull base: Intact.Paranasal sinuses and mastoid air cells: Visible chambers are clear.Orbital contents: Included portions unremarkable. CTA BRAIN:Internal carotid arteries: Petrous, cavernous and supraclinoid portions patent. Middle cerebral arteries: Left sylvian bifurcation inferior/lateral projecting bilobed aneurysm measuring 3 mm transverse with 2.8 mm neck.Anterior cerebral arteries: Patent. Intact A-comm.Basilar system: Patent vertebrobasilar system.Posterior cerebral arteries:Patent beyond the quadrigeminal segments.Venous opacification: Major dural sinuses unremarkable for bolus timing.Additional findings: None. CTA NECK:Common carotid arteries: The common carotid arteries are normal in size. Bifurcations: No flow-limiting stenosis. Cervical internal carotid arteries: No flow limiting stenosis.Vertebral arteries: Codominant. No origin stenosis.Arch anatomy: Conventional. Nonvascular findings:Osseous structures: No acute osseous abnormality. Intact calvarium and skull base.Cervical soft tissues: No adenopathy. Patent aerodigestive tract.Lung apices: No apical consolidation or pneumothorax. IMPRESSION: Inferiorly/laterally projecting white3 mm aneurysm lamin sing at the sylvian bifurcation of the left middle cerebral artery, likely the origin of subarachnoid hemorrhage. No contour irregularities are present to suggest vasospasm. Otherwise unremarkable CT angiogram of the head and neck. Signed: JR Gino, Stuart Flores Verified Date/Time: 04/21/2019 16:31:25 Reading Location: [facility] C0[facility] Neuro Reading Room PROTHROMBIN [id number] 16:04:00 Test Item Value Reference Range Interpretation Comments PROTIME (BEAKER) (test code = 13.0 seconds 11.9-14.2 759) INR (BEAKER) (test code = 370) 1.0 <=5.9 Effective 02/20/2019: PT Reference Range ChangeNew: 11.9-14.2 Previous: 11.7- 14.7RECOMMENDED COUMADIN/WARFARIN INR THERAPY RANGESSTANDARD DOSE: 2.0-3.0 Includes: PROPHYLAXIS for venous thrombosis, systemic embolization; TREATMENT for venous thrombosis and/or pulmonary embolus.HIGH RISK: Target INR is 2.5-3.5 for patients wiht mechanical heart valves.PT/[id number] 16:04:00 Test Item Value Reference Range Interpretation Comments PROTIME (BEAKER) (test code = 13.0 seconds 11.9-14.2 759) INR (BEAKER) (test code = 370) 1.0 <=5.9 PARTIAL THROMBOPLASTIN TIME 23.8 seconds 22.5-36.0 (BEAKER) (test code = 760) Effective 02/20/2019: PT Reference Range ChangeNew: 11.9-14.2 Previous: 11.7- 14.7RECOMMENDED COUMADIN/WARFARIN INR THERAPY RANGESSTANDARD DOSE: 2.0-3.0 Includes: PROPHYLAXIS for venous thrombosis, systemic embolization; TREATMENT for venous thrombosis and/or pulmonary embolus.HIGH RISK: Target INR is 2.5-3.5 for patients wiht mechanical heart valves."
--- NOTE | 2023-06-14 11:09 | RAD REPORT ---
EXAM DESCRIPTION: CT Head Without Intravenous Contrast CLINICAL HISTORY: The patient is 27 years old and is Female; HEADACHE TECHNIQUE: Axial computed tomography images of the head/brain without intravenous contrast. Sagitt al and coronal reformatted images were created and reviewed. This CT exam was performed using one o r more of the following dose reduction techniques: automated exposure control, adjustment of the mA and/or kV according to patient size, and/or use of iterative reconstruction technique. COMPARISON: CT Head dated April 21 2019 FINDINGS: BRAIN: Unremarkable. The aleman-white matter differentiation is preserved . No hemorrhag e. No significant white matter disease. No edema. No extra-axial fluid collections. VENTRICLES: Unremarkable. No ventriculomegaly. BONES/JOINTS: Evidence of prior left craniotomy is noted. SOFT TISSUES: Unremarkable. VASCULATURE: Aneurysmal clip in the region of the left middle cerebral artery is present. This ca uses streak artifact. SINUSES: Unremarkable as visualized. No acute sinusitis. MASTOID AIR CELLS: Unremarkable as visualized. No mastoid effusion. ORBITS: Unremarkable as visualized. IMPRESSION: No acute intracranial findings. Chronic findings as above. Electronically signed by: Deanna Davis MD 06/13/2023 10:58 PM CDT Due to temporary technical issues with the PACS/Fluency reporting system, reports are being signed by the in house radiologist without review as a courtesy to ensure prompt reporting. The interpreting r adiologist is fully responsible for the content of the report.
== END 2023-06-13 23:51 | disposition home or self-care (01) ==
LOC: ER 21:24
DX: R51.9 Headache, unspecified (principal); Z91.018 Allergy to other foods
CPT/HCPCS: 85025; 36415; 80053; 70450; J7512; J1200; J2930; J7040